=== PATIENT | female | born 1965 | race Caucasian/White ===

== ENCOUNTER → 2020-08-07 14:22 | Outpatient (BNVA) | payer MEDICARE, MEDICAID, SELFPAY | PROVIDERS: PCP Internal Medicine Sports Medicine; Visit Provider Urology | DX: Z76.89 Persons encountering health services in other specified circumstances (principal) | CPT/HCPCS: 51705; 99212 ==

== ENCOUNTER → 2020-09-06 14:00 | Outpatient (BNVA) | payer MEDICARE, MEDICAID, SELFPAY | PROVIDERS: PCP Internal Medicine Sports Medicine | DX: Z76.89 Persons encountering health services in other specified circumstances (principal) | CPT/HCPCS: 51705; 99212 ==

== ENCOUNTER → 2020-10-04 13:16 | Outpatient (BNVA) | payer MEDICARE, MEDICAID, SELFPAY | PROVIDERS: PCP Internal Medicine Sports Medicine; Visit Provider Urology | DX: N31.9 Neuromuscular dysfunction of bladder, unspecified (principal); Z46.6 Encounter for fitting and adjustment of urinary device; Z79.899 Other long term (current) drug therapy | CPT/HCPCS: 51701; 51705; 99212 ==

== ENCOUNTER → 2020-11-01 14:09 | Outpatient (BNVA) | payer MEDICARE, MEDICAID, SELFPAY | PROVIDERS: PCP Internal Medicine Sports Medicine; Visit Provider Urology | DX: N31.9 Neuromuscular dysfunction of bladder, unspecified (principal) | CPT/HCPCS: 51701; 51705; 99212 ==

== ENCOUNTER → 2020-11-29 14:16 | Outpatient (BNVA) | payer MEDICARE, MEDICAID, SELFPAY | PROVIDERS: PCP Internal Medicine Sports Medicine; Visit Provider Urology | DX: N31.9 Neuromuscular dysfunction of bladder, unspecified (principal); Z46.6 Encounter for fitting and adjustment of urinary device | CPT/HCPCS: 51705; 51710; 99212 ==

== ENCOUNTER → 2021-01-08 13:28 | Outpatient (BNVA) | payer MEDICARE, MEDICAID, SELFPAY | PROVIDERS: PCP Internal Medicine Sports Medicine; Visit Provider Urology | DX: N31.9 Neuromuscular dysfunction of bladder, unspecified (principal) | CPT/HCPCS: 51701; 51705; 99212 ==

== ENCOUNTER → 2021-02-05 13:58 | Outpatient (BNVA) | payer MEDICARE, MEDICAID, SELFPAY | PROVIDERS: PCP Internal Medicine Sports Medicine; Visit Provider Urology | DX: N31.9 Neuromuscular dysfunction of bladder, unspecified (principal) | CPT/HCPCS: 51705; 99212 ==

== ENCOUNTER → 2021-03-05 14:01 | Outpatient (BNVA) | payer MEDICARE, MEDICAID, SELFPAY | PROVIDERS: PCP Internal Medicine Sports Medicine; Visit Provider Urology | DX: Z43.5 Encounter for attention to cystostomy (principal); N31.9 Neuromuscular dysfunction of bladder, unspecified | CPT/HCPCS: 51705; 99212 ==

== ENCOUNTER → 2021-04-05 15:35 | Outpatient (BNVA) | payer MEDICARE, MEDICAID, SELFPAY | PROVIDERS: PCP Internal Medicine; Visit Provider Urology | DX: Z46.6 Encounter for fitting and adjustment of urinary device (principal); N31.9 Neuromuscular dysfunction of bladder, unspecified | CPT/HCPCS: 51705; 99212 ==

== ENCOUNTER → 2021-05-09 13:43 | Outpatient (BNVA) | payer MEDICARE, MEDICAID, SELFPAY | PROVIDERS: Visit Provider Urology | DX: Z46.6 Encounter for fitting and adjustment of urinary device (principal); N31.9 Neuromuscular dysfunction of bladder, unspecified | CPT/HCPCS: 51705; 99212 ==

== ENCOUNTER → 2021-06-12 14:50 | Outpatient (BNVA) | payer MEDICARE, MEDICAID, SELFPAY | PROVIDERS: Visit Provider Urology | DX: N31.9 Neuromuscular dysfunction of bladder, unspecified (principal) | CPT/HCPCS: 51705; 99212 ==

== ENCOUNTER → 2021-07-12 14:01 | Outpatient (BNVA) | payer MEDICARE, MEDICAID, SELFPAY | PROVIDERS: PCP Internal Medicine; Visit Provider Urology | DX: N31.9 Neuromuscular dysfunction of bladder, unspecified (principal) | CPT/HCPCS: 51705 ==

== ENCOUNTER → 2021-08-08 14:12 | Outpatient (BNVA) | payer MEDICARE, MEDICAID, SELFPAY | PROVIDERS: PCP Internal Medicine; Visit Provider Urology | DX: N31.9 Neuromuscular dysfunction of bladder, unspecified (principal) | CPT/HCPCS: 51705 ==

== ENCOUNTER → 2021-09-05 14:03 | Outpatient (BNVA) | payer MEDICARE, MEDICAID, SELFPAY | PROVIDERS: PCP Internal Medicine; Visit Provider Urology | DX: N31.9 Neuromuscular dysfunction of bladder, unspecified (principal) | CPT/HCPCS: 51705; 51710 ==

== ENCOUNTER → 2021-10-03 13:59 | Outpatient (BNVA) | payer MEDICARE, MEDICAID, SELFPAY | PROVIDERS: PCP Internal Medicine; Visit Provider Urology | DX: N31.9 Neuromuscular dysfunction of bladder, unspecified (principal) | CPT/HCPCS: 51705 ==

== ENCOUNTER → 2021-10-31 13:57 | Outpatient (BNVA) | payer MEDICARE, MEDICAID, SELFPAY | PROVIDERS: PCP Internal Medicine; Visit Provider Urology | DX: Z43.5 Encounter for attention to cystostomy (principal); N31.9 Neuromuscular dysfunction of bladder, unspecified | CPT/HCPCS: 51705 ==

== ENCOUNTER → 2021-11-28 14:01 | Outpatient (BNVA) | payer MEDICARE, MEDICAID, SELFPAY | PROVIDERS: PCP Internal Medicine; Visit Provider Urology | DX: Z43.5 Encounter for attention to cystostomy (principal); N31.9 Neuromuscular dysfunction of bladder, unspecified | CPT/HCPCS: 51705 ==

== ENCOUNTER → 2021-12-26 13:59 | Outpatient (BNVA) | payer MEDICARE, MEDICAID, SELFPAY | PROVIDERS: PCP Internal Medicine; Visit Provider Urology | DX: Z43.5 Encounter for attention to cystostomy (principal); N31.9 Neuromuscular dysfunction of bladder, unspecified | CPT/HCPCS: 51705 ==

== ENCOUNTER → 2022-01-23 13:59 | Outpatient (BNVA) | payer MEDICARE, MEDICAID, SELFPAY | PROVIDERS: PCP Internal Medicine; Visit Provider Urology | DX: Z43.5 Encounter for attention to cystostomy (principal); N31.9 Neuromuscular dysfunction of bladder, unspecified | CPT/HCPCS: 51705; 99212 ==

== ENCOUNTER → 2022-02-20 13:57 | Outpatient (BNVA) | payer MEDICARE, MEDICAID, SELFPAY | PROVIDERS: PCP Internal Medicine; Visit Provider Urology | DX: N31.9 Neuromuscular dysfunction of bladder, unspecified (principal) | CPT/HCPCS: 51705 ==

== ENCOUNTER → 2022-03-20 14:00 | Outpatient (BNVA) | payer MEDICARE, MEDICAID, SELFPAY | PROVIDERS: PCP Internal Medicine; Visit Provider Urology | DX: Z43.5 Encounter for attention to cystostomy (principal); N31.9 Neuromuscular dysfunction of bladder, unspecified | CPT/HCPCS: 51705 ==

== ENCOUNTER → 2022-04-17 12:56 | Outpatient (BNVA) | payer MEDICARE, MEDICAID, SELFPAY | PROVIDERS: PCP Internal Medicine; Visit Provider Urology | DX: N31.9 Neuromuscular dysfunction of bladder, unspecified (principal) | CPT/HCPCS: 51705 ==

== ENCOUNTER → 2022-05-15 13:27 | Outpatient (BNVA) | payer MEDICARE, MEDICAID, SELFPAY | PROVIDERS: PCP Internal Medicine; Visit Provider Urology | DX: N31.9 Neuromuscular dysfunction of bladder, unspecified (principal); Z46.6 Encounter for fitting and adjustment of urinary device | CPT/HCPCS: 51705 ==

== ENCOUNTER → 2022-06-12 13:31 | Outpatient (BNVA) | payer MEDICARE, MEDICAID, SELFPAY | PROVIDERS: PCP Internal Medicine; Visit Provider Urology | DX: N31.9 Neuromuscular dysfunction of bladder, unspecified (principal) | CPT/HCPCS: 51705 ==

== ENCOUNTER → 2022-07-10 15:03 | Outpatient (BNVA) | payer MEDICARE, MEDICAID, SELFPAY | PROVIDERS: PCP Internal Medicine; Visit Provider Urology | DX: N31.9 Neuromuscular dysfunction of bladder, unspecified (principal) | CPT/HCPCS: 51705; 99212 ==

== ENCOUNTER → 2022-08-06 13:31 | Outpatient (BNVA) | payer MEDICARE, MEDICAID, SELFPAY | PROVIDERS: PCP Internal Medicine; Visit Provider Urology | DX: N31.9 Neuromuscular dysfunction of bladder, unspecified (principal) | CPT/HCPCS: 51705 ==

== ENCOUNTER → 2022-09-04 13:30 | Outpatient (BNVA) | payer MEDICARE, MEDICAID, SELFPAY | PROVIDERS: PCP Internal Medicine; Visit Provider Urology | DX: N31.9 Neuromuscular dysfunction of bladder, unspecified (principal) | CPT/HCPCS: 51705 ==

== ENCOUNTER → 2022-10-02 13:28 | Outpatient (BNVA) | payer MEDICARE, MEDICAID, SELFPAY | PROVIDERS: PCP Internal Medicine; Visit Provider Urology | DX: N31.9 Neuromuscular dysfunction of bladder, unspecified (principal) | CPT/HCPCS: 51705 ==

== ENCOUNTER → 2022-10-30 13:31 | Outpatient (BNVA) | payer MEDICARE, MEDICAID, SELFPAY | PROVIDERS: PCP Internal Medicine; Visit Provider Urology | DX: N31.9 Neuromuscular dysfunction of bladder, unspecified (principal) | CPT/HCPCS: 51705 ==

== ENCOUNTER → 2022-11-27 13:34 | Outpatient (BNVA) | payer MEDICARE, MEDICAID, SELFPAY | PROVIDERS: PCP Internal Medicine; Visit Provider Urology | DX: N31.9 Neuromuscular dysfunction of bladder, unspecified (principal) | CPT/HCPCS: 51705 ==

== ENCOUNTER → 2022-12-31 13:32 | Outpatient (BNVA) | payer MEDICARE, MEDICAID, SELFPAY | PROVIDERS: PCP Internal Medicine; Visit Provider Urology | DX: N31.9 Neuromuscular dysfunction of bladder, unspecified (principal) | CPT/HCPCS: 51705 ==

== ENCOUNTER → 2023-01-29 13:42 | Outpatient (BNVA) | payer MEDICARE, MEDICAID, SELFPAY | PROVIDERS: PCP Student in an Organized Health Care Education/Training Program; Visit Provider Nurse Practitioner Family | DX: N31.9 Neuromuscular dysfunction of bladder, unspecified (principal) | CPT/HCPCS: 51705; 99212 ==

== ENCOUNTER → 2023-02-25 13:28 | Outpatient (BNVA) | payer MEDICARE, MEDICAID, SELFPAY | PROVIDERS: PCP Student in an Organized Health Care Education/Training Program; Visit Provider Nurse Practitioner Family | DX: Z43.5 Encounter for attention to cystostomy (principal); N31.9 Neuromuscular dysfunction of bladder, unspecified | CPT/HCPCS: 51705 ==

== ENCOUNTER → 2023-03-26 13:55 | Outpatient (BNVA) | payer MEDICARE, MEDICAID, SELFPAY | PROVIDERS: PCP Student in an Organized Health Care Education/Training Program; Visit Provider Urology | DX: N31.9 Neuromuscular dysfunction of bladder, unspecified (principal) | CPT/HCPCS: 51705 ==

== ENCOUNTER → 2023-04-30 13:51 | Outpatient (BNVA) | payer MEDICARE, MEDICAID, SELFPAY | PROVIDERS: PCP Student in an Organized Health Care Education/Training Program; Visit Provider Nurse Practitioner Family | DX: N31.9 Neuromuscular dysfunction of bladder, unspecified (principal) | CPT/HCPCS: 51705 ==

== ENCOUNTER → 2023-05-28 13:57 | Outpatient (BNVA) | payer MEDICARE, MEDICAID, SELFPAY | PROVIDERS: PCP Student in an Organized Health Care Education/Training Program; Visit Provider Urology | DX: N31.9 Neuromuscular dysfunction of bladder, unspecified (principal) | CPT/HCPCS: 51705 ==

== ENCOUNTER 2023-07-01 13:25 | Outpatient (AMB) | payer MEDICARE, MEDICAID, SELFPAY ==
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
== END 2023-07-01 14:10 | disposition home or self-care (01) ==
PROVIDERS: PCP Student in an Organized Health Care Education/Training Program; Visit Provider Urology
DX: N31.9 Neuromuscular dysfunction of bladder, unspecified (principal); N20.0 Calculus of kidney
CPT/HCPCS: 99214

== ENCOUNTER → 2023-07-01 13:25 | Outpatient (BNVA) | payer MEDICARE, MEDICAID, SELFPAY | PROVIDERS: PCP Student in an Organized Health Care Education/Training Program; Visit Provider Urology | DX: N31.9 Neuromuscular dysfunction of bladder, unspecified (principal); N20.0 Calculus of kidney | CPT/HCPCS: 99212 ==

== ENCOUNTER 2023-07-02 14:03 | Day surgery (SDC) | payer MEDICARE, MEDICAID, SELFPAY ==
--- NOTE | ~2023-07-02 | FL_ITS ---
EXAMINATION: XR FLUOROSCOPY WITH IMAGES CLINICAL INFORMATION: Right ureteral stent removal, possible retrograde. COMPARISON: None available. TECHNIQUE: Fluoroscopy Supervised By: Dr. Alfredo Hastings. Fluoroscopy Time: 14.4 seconds. Cumulative Dose: 3.41 mGy. DAP: None. Images: 1. FINDINGS: Initial image demonstrates the proximal end of a right internal ureteral stent. Later images demonstrate tube and wire in the pelvis, question suprapubic tube with wire in the bladder. FL/FL guidance in OR IMPRESSION: Fluoroscopy guidance for urology procedure.
--- OUTSIDE RECORDS SUMMARY | 2023-07-02 14:07 | XMS_ITS | Continuity of Care Document ---
Author Name Unknown Organization [facility] Address [address] [place] [address]- Care Team Providers Care Hyperion Essbase Developer Name Role Phone Tiffanie Casillas DO Primary Care Physician Encounter [facility] [id number] Date(s): 05/07/23 - 05/14/23 [facility] [address] [place] [address] [address] [place] [address]- Attending Physician: Juan Jo MD Referring Physician: Tiffanie Casillas DO Allergies, Adverse Reactions, Alerts Substance Reaction Severity Status ciprofloxacin rash Active nortriptyline Active oxybutynin dizziness Active ciclopirox topical Active tizanidine dizzy, hallucinations Active Compazine vomiting, dizziness Active Depakote Active Viracept Active morphine not allergic Morphine allergy Active sucralfate headache Active Detrol dizzy Active Pepcid dizzy Active Tegretol tremors, hallucinations Acti ve terconazole topical Active mirtazapine Active Serzone Active phenothiazines Active Celexa dizziness Nortriptyline allergy Active Thorazine Active Dilaudid Active OxyContin Active Latex rash Active Spectazole 1% topical cream Active traZODONE Active hydroxyzine Active Duragesic Active Ziagen Active buspirone Resolved Medications acetaminophen 325 mg oral tablet 975 mg, By Mouth, Every 6 hours, PRN, or fever greater than 101.5, Refills 0, Maintenance, Pain , Moderate, 01/01/21 11:21:00 EDT, Partial fill upon patient request if the prescription is for a schedule II opioid drug. Start Date: 01/01/21 Status: Ordered Ambien Tablet 1 tablet, By Mouth, Daily at bedtime, 0 Refills, Maintenance, 01/25/13 14:11:16 EDT Start Date: 01/25/13 Status: Ordered Baclofen she has a pump that provides this drug. the pump was taken out because of infection. they are weening her off. according to her & , 0 Refills, 06/22/08 13:27:53 EDT Start Date: 06/22/08 Status: Ordered busPIRone 10 mg oral tablet 20 mg, 2, tablet, By Mouth, 2 times a day, Maintenance, 12/26/20 14:18:00 EDT Start Date: 12/26/20 Status: Ordered FLUoxetine 40 mg oral capsule 2 capsule = 80 mg, By Mouth, Daily in AM, 0 Refills, Maintenance, 12/26/20 14:19:00 EDT Start Date: 12/26/20 Status: Ordered Fosamax Plus D 70 mg-5600 intl units oral tablet 1, tablet, By Mouth, Every week, 0, 0, 06/22/08 13:22:38, Print CIRILO Number, [id number], Constant Indicator Start Date: 06/22/08 Status: Ordered lorazepam 1 mg oral tablet 1 mg, 1, tablet, By Mouth, 2 times a day, PRN as needed for anxiety, & 2 tablets at bedtime, 0 Refills, Maintenance Start Date: 06/22/08 Status: Ordered multivitamin Therapeutic Multiple Vitamins oral tablet 1, tablet, By Mouth, Daily, 0 Refills Start Date: 06/22/08 Status: Ordered nitrofurantoin macrocrystals 100 mg oral capsule 1 capsule = 100 mg, By Mouth, Daily at bedtime, 0 Refills, Maintenance, 12/26/20 14:25:00 EDT Start Date: 12/26/20 Status: Ordered SEROquel XR 300 mg oral tablet, extended release 1 tablet = 300 mg, By Mouth, Daily in PM, takes at 8 pm with 400mg dose for total 700mg dose, 0 Refills, Maintenance, 12/18/20 16:42:00 EDT, ER Tablet Start Date: 12/18/20 Status: Ordered SEROquel XR 400 mg oral tablet, extended release 400 mg, 1, tablet, By Mouth, Daily before dinner, takes with 300mg for total dose of 700 mg, Refills 0, Maintenance, 12/18/20 16:42:00 EDT Start Date: 12/18/20 Status: Ordered solifenacin 10 mg oral tablet 1 tablet = 10 mg, By Mouth, 2 times a day, 0 Refills, Maintenance, 12/18/20 16:38:00 EDT, Tablet Start Date: 12/18/20 Status: Ordered Triumeq 1 tablet, By Mouth, Daily, 0 Refills, Maintenance, 12/05/20 11:54:00 EST Start Date: 12/05/20 Status: Ordered Valtrex Tablet 1, tablet, By Mouth, Daily at bedtime, takes at 11pm, Refills 0, Tot. Refills 0, 06/22/08 13:29:55 EDT Start Date: 06/22/08 Status: Ordered Vital Signs Most recent to oldest [Reference Range]: 1 Height 175.2 cm (05/07/23 2:34 PM) Oxygen Saturation [94-100 %] 98 % (05/07/23 2:34 PM) Pulse Rate [55-90 bpm] 78 bpm (05/07/23 2:34 PM) Blood Pressure [90-138/55-84 mm Hg] 126/ 67mm Hg (05/07/23 2:34 PM) Mode of Delivery (Oxygen) Room air (05/07/23 2:34 PM) Blood pressure sites Arm, left (05/07/23 2:34 PM) Patient Care team information Care Team Personnel Name: Tiffanie Casillas DO Position: Reference Physician Member Role: PCP Address: Address: [address] [place] [address]- Name: Alicia Mckeon RN Position: [facility] AM[facility] Nurse Member Role: Primary Care Nurse Name: Rivka Berry RN Position: S RN Member Role: Primary Care Nurse Name: Meir Kumar RN Position: S RN Member Role: Primary Care Nurse Name: Almaz Perkins RN Position: S RN Member Role: Primary Care Nurse Name: Venus Mayfield RN Position: S RN Member Role: Primary Care Nurse Care Team Related Persons Name: JUDY ENRIQUEZ Address: [address] [address] Name: ANDREW BURGER Address: [address] Name: AMEE BURGER Address: [address] [address]
--- OUTSIDE RECORDS SUMMARY | 2023-07-02 14:07 | XMS_ITS | Continuity of Care Document ---
Author Name Unknown Organization [facility] ter Address [address] [place] [id number] Care Team Providers Care Nursing Techn Name Role Phone Tiffanie Casillas DO Primary Care Physician [phone] Encounter [facility] Date(s): 06/26/23 - 06/29/[address] [id number] Discharge Disposition: A-D/C Home Attending Physician: Corey Canchola MD Admitting Physician: Sadie Mejia MD Referring Physician: Not on Staff, Referring MD Allergies, Adverse Reactions, Alerts Substance Reaction Severity Status ciprofloxacin rash Active nortriptyline Active oxybutynin dizziness Active sucralfate headache Active terconazole topical Active ciclopirox topical Active mirtazapine Active tizanidine dizzy, hallucinations Active phenothiazines Active Detrol dizzy Active Celexa dizziness Nortriptyline allergy Active Serzone Active Thorazine Active Pepcid dizzy Active Tegretol tremors, hallucinations Acti ve Dilaudid Active OxyContin Active Compazine vomiting, dizziness Active Depakote Active Viracept Active Duragesic Active Ziagen Active Latex rash Active Spectazole 1% topical cream Active buspirone Resolved hydroxyzine Active traZODONE Active Immunizations Given and Recorded Vaccine Date Status Refusal Reason influenza virus vaccine, inactivated 09/02/22 Jeromy rded influenza virus vaccine, inactivated 07/18/21 Jeromy rded influenza virus vaccine, inactivated 08/22/20 Jeromy rded influenza virus vaccine, inactivated 07/21/19 Jeromy rded influenza virus vaccine, inactivated 07/22/16 Jeromy rded tetanus/diphtheria/pertussis, acel(Tdap) 01/22/22 Recorded SARS-CoV-2 (COVID-19) mRNA BNT-162b2 vac 10/16/21 Recorded SARS-CoV-2 (COVID-19) Ad26 vaccine 01/11/21 Record ed tetanus-diphtheria toxoids (Td) 05/12/16 Recorded pneumococcal 23-valent vaccine 07/31/05 Recorded Medications Ambien 10 mg oral tablet 1 tablet = 10 mg, By Mouth, Daily at bedtime, PRN as needed for insomnia, 0 Refills, Maintenance, 06/26/23 17:53:00 EDT, Partial fill upon patient request if the prescription is for a schedule II opioid drug. Start Date: 06/26/23 Status: Ordered Ativan 1 mg oral tablet 1 tablet = 1 mg, By Mouth, 2 times a day, PRN as needed for anxiety, 0 Refills, Maintenance, 06/26/23 17:54:00 EDT, Partial fill upon patient request if the prescription is for a schedule II opioid drug. Start Date: 06/26/23 Status: Ordered Ativan 1 mg oral tablet 2 tablet = 2 mg, By Mouth, Daily at bedtime, PRN as needed for anxiety, 0 Refills, Maintenance, 06/26/23 17:54:00 EDT, Partial fill upon patient request if the prescription is for a schedule II opioid drug. Start Date: 06/26/23 Status: Ordered busPIRone 10 mg oral tablet 20 mg, 2, tablet, By Mouth, 2 times a day, Maintenance, 12/26/20 14:18:00 EDT Start Date: 12/26/20 Status: Ordered FLUoxetine 40 mg oral capsule 2 capsule = 80 mg, By Mouth, Daily in AM, 0 Refills, Maintenance, 12/26/20 14:19:00 EDT Start Date: 12/26/20 Status: Ordered Fosamax 70 mg oral tablet 1 tablet = 70 mg, By Mouth, Every 7 days, Thursday, 0 Refills, Maintenance, 06/26/23 17:55:00 EDT, Partial fill upon patient request if the prescription is for a schedule II opioid drug. Start Date: 06/26/23 Status: Ordered nitrofurantoin macrocrystals 100 mg oral capsule 1 capsule = 100 mg, By Mouth, Daily, 0 Refills, Maintenance, 12/26/20 14:25:00 EDT Start Date: 12/26/20 Status: Ordered SEROquel 300 mg oral tablet 1 tablet = 300 mg, By Mouth, Daily at bedtime, 0 Refills, Maintenance, 06/26/23 17:55:00 EDT, Partial fill upon patient request if the prescription is for a schedule II opioid drug. Start Date: 06/26/23 Status: Ordered SEROquel 400 mg oral tablet 1 tablet = 400 mg, By Mouth, Daily at bedtime, 0 Refills, Maintenance, 06/26/23 17:55:00 EDT, Partial fill upon patient request if the prescription is for a schedule II opioid drug. Start Date: 06/26/23 Status: Ordered solifenacin 10 mg oral tablet 1 tablet = 10 mg, By Mouth, 2 times a day, 0 Refills, Maintenance, 12/18/20 16:38:00 EDT, Tablet Start Date: 12/18/20 Status: Ordered Triumeq oral tablet 1 tablet, By Mouth, Daily, 0 Refills, Maintenance, 06/26/23 17:52:00 EDT, Partial fill upon patientrequest if the prescription is for a schedule II opioid drug. Start Date: 06/26/23 Status: Ordered Valtrex 500 mg oral tablet 500 mg, 1, tablet, By Mouth, Daily, Refills 0, Maintenance, 06/19/23 15:12:00 EDT, Partial fill upon patient request if the prescription is for a schedule II opioid drug. Start Date: 06/19/23 Status: Ordered Problem List Condition Confirmation Course Effective Dates Status Health St atus Informant Presence of intrathecal baclofen pump Confirmed Active Results Radiology Reports * Exam Date Time Procedure Performing Provider Status 06/27/23 9:09 AM C-Arm < 1 Hour Raymond , Keira; Auth (V erified) Notes: (C-Arm < 1 Hour) Reason For Exam: Right Cysto retrograde with stent placement RESULT: C-Arm < 1 Hour Urethrocystography Retrograde, C-Arm < 1 Hour INDICATION: CT 06/24/2023 right UVJ stone. Right cysto retrograde with stent placement COMPARISONS: None TECHNIQUE: Fluoroscopy support was provided. There was no radiologist in attendance. FLUOROSCOPY TIME: 10.8 seconds EXPOSURE: 0.3619 Gycm2 (Dose Area Product) TECHNOLOGIST TIME: 45 minutes FINDINGS: Several views show retrograde catheterization catheter placement with pigtail loop formed in the right upper pole. IMPRESSION: See above. WSN: [id number] Ordering Physician: Bryan Desir Dictated By: Ta Xiong MD Dictated Date/Time: 06/27/23 10:36 a Reviewed By: Ta Xiong MD Signed By: Ta Xiong MD Signed Date/Time: 06/27/23 10:36 am Transcribed By: JIMMY Transcribed Date/Time: 06/27/23 10:35 am * Exam Date Time Procedure Performing Provider Status 06/27/23 9:09 AM Urethrocystography Retrograde Raymond , Keira; Auth (Verified) Notes: (Urethrocystography Retrograde) Reason For Exam: Right cysto retrograde with stent placement RESULT: Urethrocystography Retrograde Urethrocystography Retrograde, C-Arm < 1 Hour INDICATION: CT 06/24/2023 right UVJ stone. Right cysto retrograde with stent placement COMPARISONS: None TECHNIQUE: Fluoroscopy support was provided. There was no radiologist in attendance. FLUOROSCOPY TIME: 10.8 seconds EXPOSURE: 0.3619 Gycm2 (Dose Area Product) TECHNOLOGIST TIME: 45 minutes FINDINGS: Several views show retrograde catheterization catheter placement with pigtail loop formed in the right upper pole. IMPRESSION: See above. WSN: [id number] Ordering Physician: Bryan Desir Dictated By: Ta Xiong MD Dictated Date/Time: 06/27/23 10:36 a Reviewed By: Ta Xiong MD Signed By: Ta Xiong MD Signed Date/Time: 06/27/23 10:36 am Transcribed By: JIMMY Transcribed Date/Time: 06/27/23 10:35 am Vital Signs Most recent to oldest [Reference Range]: 1 2 3 Oxygen Saturation [94-100 %] 96 % (06/29/23 8:00 AM) 99 % (06/29/23 12:00 AM) 97 % (06/28/23 8:00 PM) Pulse Rate [55-90 bpm] 91 bpm *H* (06/29/23 8:00 AM) 102 bpm *H* (06/29/23 12:00 AM) 91 bpm *H* (06/28/23 8:00 PM) Blood Pressure [90-138/55-84 mm Hg] 124/60mm Hg (06/29/23 8:00 AM) 105/50mm Hg (06/29/23 12:00 AM) 132/71mm Hg (06/28/23 8:00 PM) Respiratory Rate [16-30 br/min] 17 br/min (06/29/23 8:00 AM) 17 br/min (06/29/23 12:00 AM) 17 br/min (06/28/23 8:00 PM) Temperature [96.8-100.4 DegF] 98.7 DegF (06/29/23 8:00 AM) 97.3 DegF (06/29/23 12:00 AM) 98.1 DegF (06/28/23 8:00 PM) Liters per Minute 6 L/min (06/27/23 8:45 AM) Mode of Delivery (Oxygen) Room air (06/29/23 8:00 AM) Room air (06/29/23 12:00 AM) Room air (06/28/23 8:00 PM) Blood pressure sites Arm, left (06/29/23 8:00 AM) Arm, left (06/29/23 12:00 AM) Arm, left (06/28/23 8:00 PM) Temperature Route Oral (06/29/23 8:00 AM) Oral (06/29/23 12:00 AM) Oral (06/28/23 8:00 PM) Social History Social History Type Response Smoking Status Never (less than 100 in lifetime) entered on: 06/19/23 Sex History and physical note * Whit SANTOS, [facility]: PERFORM Event Display: History and Physical Hospital Authored Date: Patient: ??DARLING ENRIQUEZ ? Age:??57 Years?Sex:??Female?:??1965?? History of Present Illness ?? 57-year-old female with a history of TBI, HIV, quadriplegia with colostomy, indwelling Kaur catheter admitted to the [facility] with??fever, cough,??shortness of breath??was admitted??for sepsissecondary to suspected pneumonia and UTI??Urine culture growing Pseudomonas, ID consulted, recommends cefepime and completed doxycycline for suspected pneumonia.??patient??need suprapubic catheter replaced which was unsuccessful, kaur placed , and further evaluation iwth ct abdomen was obtained ,??CT abdomen pelvis showed obstructing 6 mm + right UVJ junction with moderate hydroureteronephrosis urology consult, plan for cystoscopy today given her underlying comorbidities deemed needing higher level of care, hence transferred to [facility]. ?? On arrival here, patient reports improvement in her cough and shortness of breath??after treatment with??antibiotics and steroids.?? Patient??denies having any chest pain, abdomen pain,??bowel habits, no diarrhea, no urinary symptoms. Objective ? Vital Signs?? Temperature: 97.6 DegF (06/27/23 00:43:00) Temperature Route: Oral (06/27/23 00:43:00) Pulse Rate: 79 bpm (06/27/23 00:43:00) Respiratory Rate: 18 br/min (06/27/23 00:43:00) Systolic Blood Pressure:??152 mm Hg??High (06/27/23 00:43:00) Diastolic Blood Pressure:??89 mm Hg??High (06/27/23 00:43:00) Blood pressure sites: Arm, right (06/27/23 00:43:00) Mean Arterial Pressure: 110 mm Hg (06/27/23 00:43:00) Pulse Pressure: 63 mm Hg (06/27/23 00:43:00) Oxygen Saturation: 97 % (06/27/23 00:43:00) Liters per Minute: 1 L/min (06/26/23 07:27:00) Mode of Delivery (Oxygen): Room air (06/27/23 00:43:00) Early Warning Score: 2 (06/27/23 00:44:59) ? Physical Exam Constitutional: Alert, in no acute distress. Head EENT: Extraocular muscle movement intact.??Moist mucous membranes.?? Neck: Supple. No JVD. Respiratory: Clear to auscultation. No wheezing or crackles. No use of accessory muscles. Cardiovascular: S1S2 regular. No murmurs, rubs or gallops. Gastrointestinal: Abdomen soft, non-tender, non-distended. Normal bowel sounds.colostomy in place purewick around spc site Genitourinary: No CVA tenderness. Extremities: No lower extremity pitting??edema. No cyanosis or clubbing. Neurologic: AAOx3, Speech normal. quadriplegic Skin: No rash. Psychiatric: Normal mood and affect Assessment/Plan Diagnoses JACI (acute kidney injury) ??(N17.9) Anxiety ??(F41.9) HIV disease ??(B20) Nephrolithiasis ??(N20.0) Pneumonia ??(J18.9) Quadriplegia ??(G82.50) S/P colostomy ??(Z93.3) UTI (urinary tract infection) ??(N39.0) ?? Assessment:??57-year-old female with a history of TBI, HIV, quadriplegia with colostomy, indwellingFoley catheter admitted to the [facility] with fever, cough, shortness of breath was admitted for sepsis secondary to suspected pneumonia and UTI Urine culture growing Pseudomonas, ID consulted, recommends cefepime and completed doxycycline for suspected pneumonia, patient need suprapubic catheter replaced which was unsuccessful, kaur placed , and further evaluation??with ??ct abdomen was obtained , CT abdomen pelvis showed obstructing 6 mm + right UVJ junction with moderate hydroureteronephrosis urology consult, plan for cystoscopy today given her underlying comorbidities deemed needinghigher level of care, hence transferred to [facility] ?? Nephrolithiasis ??(N20.0) UTI (urinary tract infection) (N39.0):??Patient??has chronic suprapubic catheter,??presented with fever??and sepsis at [facility],??suprapubic catheter replacement was unsuccessful,??per request placed,??CT abdomen pelvis ordered which showed -abdomen pelvis showed obstructing 6 mm + right UVJ junction, urology consult, plan for cystoscopy today given her underlying comorbidities deemed needing higher level of care, hence transferred to [facility]. -continue cefepime started on 06/22 -npo after midnight -urology consult in am -will need outpatient follow up for suprapubic catheter ( follows urologist [facility]) ?? JACI (acute kidney injury) (N17.9):??baseline creatinine 0.6, on admission to [place] was 1.6, today is 1,improving could be in the setting of hydronephrosis??sepsis, uti and monitor renal function -urology consult as above ?? Pneumonia (J18.9):??s/p doxycycline,??3days of steroids, improvement in her symptoms ?? Anxiety (F41.9):??Ativan 2 mg 8 PM??and 1 mg at 11 PM an additional 1 mg during the day as as needed, ??Seroquel 700 mg, continue continue bupsar and fluoxetine ?? HIV disease (B20):??Continue home medication, triumeq ?? Quadriplegia (G82.50):??Her baclofen pump ?? S/P colostomy (Z93.3):??noted ?? VTE Prophylaxis:??SCD ?VTE Prophylaxis Assessment:??Risk Level documented as Low Risk ?? Code Status:??full ?Order Code Status:??Code Status Ordered ?? Ongoing Medical Necessity:??hydronephrosis ?? Discharge Planning:??pending clinical course ?? This note was created using [employer] speech recognition software, there may be unwanted word substitution, typographical errors or grammatical error, an attempt at proofreading has been made to minimize errors. please call if there are any questions regarding plan of care. ?? date of service:??06/26/23 ? Histories Allergies Allergies ?(Active and Proposed Allergies Only) Latex? (Severity: Unknown severity, Onset: Unknown) ?Reactions: rash nortriptyline? (Severity: Unknown severity, Onset: Unknown) traZODONE? (Severity: Unknown severity, Onset: Unknown) Depakote? (Severity: Unknown severity, Onset: Unknown) tizanidine? (Severity: Unknown severity, Onset: Unknown) ?Reactions: dizzy, hallucinations Tegretol? (Severity: Unknown severity, Onset: Unknown) ?Reactions: tremors, hallucinations sucralfate? (Severity: Unknown severity, Onset: Unknown) ?Reactions: headache Pepcid? (Severity: Unknown severity, Onset: Unknown) ?Reactions: dizzy ciprofloxacin? (Severity: Unknown severity, Onset: Unknown) ?Reactions: rash oxybutynin? (Severity: Unknown severity, Onset: Unknown) ?Reactions: dizziness Detrol? (Severity: Unknown severity, Onset: Unknown) ?Reactions: dizzy Compazine? (Severity: Unknown severity, Onset: Unknown) ?Reactions: vomiting, dizziness Serzone? (Severity: Unknown severity, Onset: Unknown) mirtazapine? (Severity: Unknown severity, Onset: Unknown) hydroxyzine? (Severity: Unknown severity, Onset: Unknown) Celexa? (Severity: Unknown severity, Onset: Unknown) ?Reactions: Nortriptyline allergy, dizziness phenothiazines? (Severity: Unknown severity, Onset: Unknown) Viracept? (Severity: Unknown severity, Onset: Unknown) Ziagen? (Severity: Unknown severity, Onset: Unknown) Dilaudid? (Severity: Unknown severity, Onset: Unknown) Duragesic? (Severity: Unknown severity, Onset: Unknown) OxyContin? (Severity: Unknown severity, Onset: Unknown) Thorazine? (Severity: Unknown severity, Onset: Unknown) ciclopirox topical? (Severity: Unknown severity, Onset: Unknown) terconazole topical? (Severity: Unknown severity, Onset: Unknown) Spectazole 1% topical cream? (Severity: Unknown severity, Onset: Unknown) ? Past Medical History/Problem List Active Problems??(1) Presence of intrathecal baclofen pump ? Past Surgical History No surgery history documented. ? Social History Alcohol Details:??Use: Never. Substance Abuse Details:??Use: Never. Tobacco Details:??Use: Never (less than 100 in lifetime). ? Family History No positive family history reported. ? Medications Home Medications abacavir/dolutegravir/lamiVUDine (Triumeq oral tablet)?1?tab(s)?By Mouth?Daily Alendronate (Fosamax 70 mg oral tablet)?1?tab(s)?70?Milligram?By Mouth?Every 7 days?Thursday BusPIRone (busPIRone 10 mg oral tablet)?20?Milligram?2?tablet?By Mouth?2 times a day Cefepime (cefepime 2 g intravenous injection)?2,000?Milligram?IVPB?Every 12 hours?for 1?Days Fluoxetine (FLUoxetine 40 mg oral capsule)?2?capsule?80?Milligram?By Mouth?Daily in AM Lorazepam (Ativan 1 mg oral tablet)?1?tab(s)?1?Milligram?By Mouth?2 times a day?as needed?as needed for anxiety Lorazepam (Ativan 1 mg oral tablet)?2?tab(s)?2?Milligram?By Mouth?Daily at bedtime?as needed?as needed for anxiety Nitrofurantoin (nitrofurantoin macrocrystals 100 mg oral capsule)?1?capsule?100?Milligram?By Mouth?Daily Quetiapine (SEROquel 300 mg oral tablet)?1?tab(s)?300?Milligram?By Mouth?Daily atbedtime Quetiapine (SEROquel 400 mg oral tablet)?1?tab(s)?400?Milligram?By Mouth?Daily atbedtime Solifenacin (solifenacin 10 mg oral tablet)?1?tab(s)?10?Milligram?By Mouth?2 times a day ValACYclovir (Valtrex 500 mg oral tablet)?500?Milligram?1?tablet?By Mouth?Daily Zolpidem (Ambien 10 mg oral tablet)?1?tab(s)?10?Milligram?By Mouth?Daily at bedtime?as needed?as needed for insomnia ? Results Recent Labs BLOOD COUNT & DIFF WBC 11.7 k/mm3 (High)?? 06/26/2023 05:22 RBC 3.14 m/mm3 (Low)?? 06/26/2023 05:22 Hgb 11.4 Gm/dL (Low)?? 06/26/2023 05:22 Hct 30.8 % (Low)?? 06/26/2023 05:22 MCV 98.1 femtoliters ()?? 06/26/2023 05:22 MCH 36.3 pg (High)?? 06/26/2023 05:22 MCHC 37.0 g/dL ()?? 06/26/2023 05:22 Platelet Count 355 k/mm3 ()?? 06/26/2023 05:22 RDW-SD 54.2 femtoliters (High)?? 06/26/2023 05:22 MPV 9.9 femtoliters ()?? 06/26/2023 05:22 Nucleated RBC (Automated) 0.0 #/100 WBC'S ()?? 06/26/2023 05:22 Abs. NRBC 0.0 k/mm3 ()?? 06/26/2023 05:22 ?? CHEM GENERAL Sodium 144 mmol/L ()?? 06/26/2023 05:22 Potassium 3.4 mmol/L (Low)?? 06/26/2023 05:22 Chloride 113 mmol/L (High)?? 06/26/2023 05:22 Bicarbonate Level 17 mmol/L (Low)?? 06/26/2023 05:22 Anion Gap 14 ()?? 06/26/2023 05:22 BUN 33 mg/dL (High)?? 06/26/2023 05:22 Creatinine-Blood 1.0 mg/dL ()?? 06/26/2023 05:22 Estimated GFR Creatinine 65 ML/MIN/1.73 M2 ()?? 06/26/2023 05:22 ?? URINE OTHER Est Creatinine Clearance 63.08 mL/min ()?? 06/26/2023 08:06 ?? VIROLOGY COVID-19 PCR Specimen Source NASAL ()?? 06/26/2023 16:00 COVID-19 PCR Result NEGATIVE ()?? 06/26/2023 16:00 ? EKG study * Event Display: EKG Authored Date: * Event Display: ECG 12-Lead Authored Date: Please click on pdf link to open report * Event Display: ECG 12-Lead Authored Date: Ventricular Rate: 78 BPM Atrial Rate: 78 BPM P-R Interval: 172 ms QRS Duration: 86 ms Q-T Interval: 426 ms QTC Calculation(Bazett): 485 ms P [place]: -4 degrees R [place]: 16 degrees T [place]: -15 degrees Normal sinus rhythm Prolonged QT Abnormal ECG When compared with ECG of 26-JUN-2023 19:38, MANUAL COMPARISON REQUIRED, DATA IS UNCONFIRMED Confirmed by YEISON MONTGOMERY MD ([id number]) on 06/27/2023 10:22:37 AM [place]: YEISON MONTGOMERY MD * Event Display: ECG 12-Lead Authored Date: Please click on pdf link to open report * Event Display: ECG 12-Lead Authored Date: Ventricular Rate: 81 BPM Atrial Rate: 81 BPM P-R Interval: 152 ms QRS Duration: 100 ms Q-T Interval: 436 ms QTC Calculation(Bazett): 506 ms P [place]: 74 degrees R [place]: 39 degrees T [place]: 63 degrees Critical Test Result: Long QTc Normal sinus rhythm Normal ECG When compared with ECG of 19-JUN-2023 13:32, Sinus rhythm has replaced Junctional rhythm T wave inversion no longer evident in Anterior leads QT has shortened Confirmed by VALENTINA SANTOS YEISON ([id number]) on 06/27/2023 5:08:09 PM [place]: [facility] * Alexa Mark RN: PERFORM, SIGN, VERIFY Event Display: Progress Note Hospital Authored Date: [id number] Patient: DARLING ENRIQUEZ Age: 57 years Sex: Female : 1965 Associated Diagnoses: None Author: Alexa Mark RN Findings Evaluation A+Ox3. VSS. Pt denies SOB, chest pain, N/V/D. Respirations even and steady. IPOC rounds completed on pt today. T&R. Incontinent care given. Colostomy bag intact. Pt being discharged home. DIscharge teaching done with pt and at bedside. IV removed, catheter tip intact and dry dressing applied. Pt left unit via own wheelchair. . Discharge Information Case Management Discharge Plan : Case Management Discharge Plan Data 06/26/2023 15:11 EDT Discharge Level of Care at Discharge Short-term Acute Inpatient * Char CORRAL, Moy Ceballos: PERFORM Event Display: Progress [facility] Authored Date: Patient: ??DARLING ENRIQUEZ ? Age:??57 Years?Sex:??Female?:??1965?? Subjective LOS: 3 PCP: Tiffanie Caisllas DO Consulting Physician: Jesika SANTOS, Corey Attending Physician: Ta Blake MD Reason For Consult: Urosepsis/Obstructive Uropathy ?? 57-year-old??quadriplegic female now POD??2??cystoscopy right stent,??seen and examined at bedside. No overnight events per nursing.?? Vital signs reviewed??and are stable.?? No recent labs. Kaur catheter draining clear yellow urine.?? No new complaints. ??Patient will??follow-up with their home urologist Dr. Martinez ([place])??for??SP tube placement, and ureteroscopy with stone removal. Review of Systems *Quadriplegic, unreliable. ??Though denying any??new complaints. Past Medical History Active Problems??(1) Presence of intrathecal baclofen pump ? Past Surgical History No surgery history documented. ? Social History Alcohol Details:??Use: Never. Substance Abuse Details:??Use: Never. Tobacco Details:??Use: Never (less than 100 in lifetime). ? Objective ? Vital Signs?? Temperature: 98.7 DegF (06/29/23 08:00:00) Temperature Route: Oral (06/29/23 08:00:00) Pulse Rate:??91 bpm??High (06/29/23 08:00:00) Respiratory Rate: 17 br/min (06/29/23 08:00:00) Systolic Blood Pressure: 124 mm Hg (06/29/23 08:00:00) Diastolic Blood Pressure: 60 mm Hg (06/29/23 08:00:00) Blood pressure sites: Arm, left (06/29/23 08:00:00) Mean Arterial Pressure: 95 mm Hg (06/28/23 15:07:00) Pulse Pressure: 64 mm Hg (06/29/23 08:00:00) Oxygen Saturation: 96 % (06/29/23 08:00:00) Mode of Delivery (Oxygen): Room air (06/29/23 08:00:00) Early Warning Score: 0 (06/29/23 08:26:57) ? Pain Scores?? No qualifying data available. ? Intake/Output? 06/26 15:52 06/29 07:00 06/28 07:00 06/27 07:00 06/26 07:00 ?? 06/29 11:20 06/29 11:20 06/29 06:59 06/28 06:59 06/27 06:59 Intake ? 1237 ?0 ? 1119 ?118 ?0 Output ? 3601 ?400 ? 2801 ?400 ?0 Net Total ?-2364 ? -400 ?-1682 ? -282 ?0 ? Physical Exam Constitutional: Alert, in no distress. Mental Status: Oriented to person, place and time. Respiratory: Equal and unlabored respiratory effort. Gastrointestinal: Abdomen soft, non-tender, non-distended. Normal bowel sounds. No pulsatile mass. No hepatosplenomegaly. Genitourinary: Quadriplegic. _ Home Medications abacavir/dolutegravir/lamiVUDine (Triumeq oral tablet)?1?tab(s)?By Mouth?Daily Alendronate (Fosamax 70 mg oral tablet)?1?tab(s)?70?Milligram?By Mouth?Every 7 days?Thursday BusPIRone (busPIRone 10 mg oral tablet)?20?Milligram?2?tablet?By Mouth?2 times a day Cefepime (cefepime 2 g intravenous injection)?2,000?Milligram?IVPB?Every 12 hours?for 1?Days Fluoxetine (FLUoxetine 40 mg oral capsule)?2?capsule?80?Milligram?By Mouth?Daily in AM Lorazepam (Ativan 1 mg oral tablet)?1?tab(s)?1?Milligram?By Mouth?2 times a day?as needed?as needed for anxiety Lorazepam (Ativan 1 mg oral tablet)?2?tab(s)?2?Milligram?By Mouth?Daily at bedtime?as needed?as needed for anxiety Nitrofurantoin (nitrofurantoin macrocrystals 100 mg oral capsule)?1?capsule?100?Milligram?By Mouth?Daily Quetiapine (SEROquel 300 mg oral tablet)?1?tab(s)?300?Milligram?By Mouth?Daily atbedtime Quetiapine (SEROquel 400 mg oral tablet)?1?tab(s)?400?Milligram?By Mouth?Daily atbedtime Solifenacin (solifenacin 10 mg oral tablet)?1?tab(s)?10?Milligram?By Mouth?2 times a day ValACYclovir (Valtrex 500 mg oral tablet)?500?Milligram?1?tablet?By Mouth?Daily Zolpidem (Ambien 10 mg oral tablet)?1?tab(s)?10?Milligram?By Mouth?Daily at bedtime?as needed?as needed for insomnia ? Inpatient Medications Medications (16) Active SCHEDULED: (9) abacavir/dolutegravir/lamiVUDine Tablet (Triumeq Tablet) ??1 tablet, By Mouth, Daily at bedtime BusPIRone 10 mg Tablet (busPIRone 10 mg oral tablet) ??20 mg, By Mouth, 2 times a day Cefepime 2 Gm Inj (Cefepime Extended IVPB) ??2,000 mg, IVPB, Every 8 hours Fluoxetine 20 mg Capsule (FLUoxetine 20 mg oral capsule) ??80 mg, By Mouth, Daily in AM Lorazepam 2 mg Tablet (LORazepam 2 mg oral tablet) ??2 mg, By Mouth, Daily at bedtime NaCl 0.9% Flush 3ml (NaCL 0.9% Flush) ??3 mL, IV Push, Every 8 hours Quetiapine 100 mg Tablet (SEROquel 100 mg oral tablet) ??300 mg, By Mouth, Daily at bedtime Quetiapine 200 mg Tablet (SEROquel 200 mg oral tablet) ??400 mg, By Mouth, Daily at bedtime ValACYclovir 500 mg Tablet (Valtrex 500 mg oral tablet) ??500 mg, By Mouth, Daily CONTINUOUS: (0) PRN: (7) Acetaminophen 325 mg Tablet (Acetaminophen Tablet) ??650 mg, By Mouth, Every 4 hours Docusate Sodium 100 mg Capsule (Docusate Sodium Capsule) ??100 mg 1 capsule, By Mouth, 2 times a day Lorazepam 1 mg Tablet (Ativan 1 mg oral tablet) ??1 mg, By Mouth, 3 times a day after meals NaCl 0.9% Flush 3ml (NaCL 0.9% Flush) ??3 mL, IV Push, Every 8 hours Senna Tablet ??8.6 mg 1 tablet, By Mouth, 2 times a day Simethicone 80 mg Chewable Tablet (Simethicone Tablet) ??80 mg, Chew, 3 times a day Zolpidem 5 mg Tablet (Ambien 5 mg oral tablet) ??10 mg, By Mouth, Daily at bedtime ? Results Recent Labs No labs resulted between 06/28/2023 00:00 and 06/29/2023 11:20? Abnormal Labs No lab data available. ?? Assessment/Plan ? Diagnoses JACI (acute kidney injury) ??(N17.9) Anxiety ??(F41.9) HIV disease ??(B20) Nephrolithiasis ??(N20.0) Pneumonia ??(J18.9) Quadriplegia ??(G82.50) S/P colostomy ??(Z93.3) UTI (urinary tract infection) ??(N39.0) ?? JACI (acute kidney injury) (N17.9): Nephrolithiasis (N20.0):?? UTI (urinary tract infection) (N39.0):??57-year-old female??Hope postop day 2??for cystoscopy rightstent with ??Thang.??SP tube??site closed, she??now has??indwelling Kaur catheter??which is draining clear yellow urine.??She is on cefepime.??She will continue with the Kaur catheter through discharge.??Dr. Blake discussed with at bedside??who agreed??to follow-up with??home??urologist Dr. Martinez ([place])??for??SP tube placement,??ureteroscopy, and stone removal.??I would recommend??primary team follow-up with??their office??so they are aware of this patient before discharge. ?? Recommendations: ?Antibiotics per primary team. ?Retain Kaur catheter??throughout discharge. ?Please reach out to patient's??home urologist Dr. Martinez??for outpatient follow-up. ?? This patient was seen and examined with attending physician Dr. Blake, in total, chart review, discussion with patient/primary team,??physical exam, planning took approximately??35 minutes. * Lara Torres RN: PERFORM, SIGN, VERIFY Event Display: Progress Note Hospital Authored Date: [id number] Patient: DARLING ENRIQUEZ Age: 57 years Sex: Female : 1965 Associated Diagnoses: None Author: Lara Torres RN Findings Problem Related to Alteration in Genitourinary : Alteration in Genitourinary Function/new 06/28/2023 17:00 EDT Alteration in Status Related to Urinary retention, Urology procedure Goals & Outcomes, Genitourinary Pt will achieve normal/improved fluid balance, Pt will maintainadequate GI function appropriate for pt, Pt will maintain adequate function appropriate for pt, Pt will maintain normal fluid balance, Pt will resume normal pattern of elimination, Pt/caregiver will state understanding of self-care skills Interventions, Assess/monitor/maintain Genitourinary status, Encourage PO fluid intake as allowed by diet, Teach signs & symptoms of distended bladder, Assess/monitor effects of antibiotics, Assess/monitor s/s of urinary tract infection, Teach Pt/caregiver s/s of urinary tract infection BH Goals/Interventions, Genitourinary Yes Genitourinary, Problem Start 06/27/2023 12:50 Reviewed Plan with, Genitourinary Patient, Spouse/significant other Patient Progression, Genitourinary Patient progressing according to plan Genitourinary, Problem Ongoing Yes . Nursing Data Genitourinary Data. : Genitourinary Data. 06/28/2023 17:56 EDT Indication for Urinary Catheter Urinary retention; bladder obstruction 06/28/2023 14:10 EDT Urinary catheter type Single Lumen Indwelling Urinary Catheter Urinary catheter size 18 Fr Urine Color [place] Urine Description Clear WNL except 06/28/2023 12:26 EDT Urinary catheter size 18 [place] Indication for Urinary Catheter Urinary retention; bladder obstruction . Narrative/Incidental Patient plan of care discussed with hospitalist. Suprapubic allie urine collected in promafit. Kaur cather pink/red-tinged urine output. IVF discontinued. Antibiotic given as ordered.. Evaluation Patient and aware of antibiotic for UTI. Therapeutic bed. Falls protocol. Monitor urine output and comfort level.. Discharge Information Case Management Discharge Plan : Case Management Discharge Plan Data 06/26/2023 15:11 EDT Discharge Level of Care at Discharge Short-term Acute Inpatient Note * Alexa Mark RN: PERFORM Event Display: Discharge/Transfer Note Hospital Authored Date: [id number] Nursing Discharge Note Entered On: 06/29/2023 15:04 EDT Performed On: 06/29/2023 15:03 EDT by Alexa Mark RN Nursing Discharge Note 2 Discharge Time : 06/29/2023 15:03 EDT Discharge Level of Care at Discharge : Home/Long Term/Foster Care Patient Left Unit Via : Wheelchair Patient Accompanied Off Unit with : Significant other DC Instructions Provided & Signed by Pt : Yes Patient Understands D/C Instructions : Yes Patient Instructions Discharge Signed : Yes Did Pt have Specialty Bed or Wound Vac : No Alexa Mark RN - 06/29/2023 15:03 EDT * Jesika SANTOS, Corey: PERFORM Event Display: Discharge/Transfer Note Hospital Authored Date: [id number] Patient: ??DARLING ENRIQUEZ ? Age:??57 Years?Sex:??Female?:??1965?? Patient Information Discharge Location: W3 Primary Care Physician: Tiffanie Casillas DO Admit Date/Time: 06/26/23 15:52 Discharge Disposition Discharge Disposition: Home: No Services Discharge Diagnosis JACI (acute kidney injury) (N17.9) Right ureter stone UTI Pseudomonas UTI Anxiety (F41.9) HIV disease (B20) Nephrolithiasis (N20.0) Pneumonia (J18.9) Quadriplegia (G82.50) S/P colostomy (Z93.3) ? _ Discharge Medications abacavir/dolutegravir/lamiVUDine (Triumeq oral tablet)?1?tab(s)?By Mouth?Daily Alendronate (Fosamax 70 mg oral tablet)?1?tab(s)?70?Milligram?By Mouth?Every 7 days?Thursday BusPIRone (busPIRone 10 mg oral tablet)?20?Milligram?2?tablet?By Mouth?2 times a day Fluoxetine (FLUoxetine 40 mg oral capsule)?2?capsule?80?Milligram?By Mouth?Daily in AM Lorazepam (Ativan 1 mg oral tablet)?1?tab(s)?1?Milligram?By Mouth?2 times a day?as needed?as needed for anxiety Lorazepam (Ativan 1 mg oral tablet)?2?tab(s)?2?Milligram?By Mouth?Daily at bedtime?as needed?as needed for anxiety Nitrofurantoin (nitrofurantoin macrocrystals 100 mg oral capsule)?1?capsule?100?Milligram?By Mouth?Daily Quetiapine (SEROquel 300 mg oral tablet)?1?tab(s)?300?Milligram?By Mouth?Daily atbedtime Quetiapine (SEROquel 400 mg oral tablet)?1?tab(s)?400?Milligram?By Mouth?Daily atbedtime Solifenacin (solifenacin 10 mg oral tablet)?1?tab(s)?10?Milligram?By Mouth?2 times a day ValACYclovir (Valtrex 500 mg oral tablet)?500?Milligram?1?tablet?By Mouth?Daily Zolpidem (Ambien 10 mg oral tablet)?1?tab(s)?10?Milligram?By Mouth?Daily at bedtime?as needed?as needed for insomnia ? Medications Started none Medications Discontinued none Doses Changed none PCP Follow-Up/Heads-Up f/u with urology regarding definitive management of the right ureter stone and also regarding re-insertion of supra pubic catheter Future Appointments Thursday 2:00 PM EDT ?? Where: [facility] Radiology [facility] Breast and [facility] [address], [address] [place] [address]- Status: Pending Objective Assessment and Plan ? 57-year-old female with a history of TBI, HIV, quadriplegia with colostomy, indwelling Kaur catheter admitted to the [facility] with fever, cough, shortness of breath was admitted for sepsis secondary to suspected pneumonia and UTI Urine culture growing Pseudomonas, ID consulted, recommends cefepime and completed doxycycline for suspected pneumonia, patient need suprapubic catheter replaced which was unsuccessful, kaur placed , and further evaluation??with ??ct abdomen was obtained , CT abdomen pelvis showed obstructing 6 mm + right UVJ junction with moderate hydroureteronephrosis hencetransferred to [facility] for urology consult /cystoscopy ?? Nephrolithiasis ??(N20.0) Right ureter stone UTI (urinary tract infection) (N39.0):?? Patient??has chronic suprapubic catheter,??presented with fever??and sepsis at [facility],??suprapubic catheter replacement was unsuccessful,?CT abdomen pelvis ordered which showed -abdomen pelvis showed obstructing 6 mm + right UVJ junction [facility] -s/p Urology intervention > Right cysto retrograde with stent placement -will need outpatient follow up for suprapubic catheter ( follows urologist [facility]) and also need outpatient management of right ureter stone by -She??received total 7 days of Cefepime for Pseudomonas UTI and at this time she has no fever, no suprapubic pain and no wbc so no need for further antibiotics. ?? JACI (acute kidney injury) (N17.9):??baseline creatinine 0.6, on admission to [place] was 1.6, today is 1,>??stopped IVF ?? Pneumonia (J18.9):??s/p doxycycline,??3days of steroids, improvement in her symptoms> completed course of cefepime ?? Anxiety (F41.9):??Ativan 2 mg 8 PM??and 1 mg at 11 PM an additional 1 mg during the day as as needed, ??Seroquel 700 mg, continue continue Bupsar and fluoxetine ?? HIV disease (B20):??Continue home medication, triumeq ?? Quadriplegia (G82.50):??Her baclofen pump ? . Physical Exam Patient ??seen and examined today chest: b/l cta, heart:s1s2+, abdomen:s oft, bs+, non tender, neuro: aaox3, extremities: quadriplegic suprapubic site is covered with colostomy bag to drain urine- at this time no drainage noted. d/w at bedside. urology- d/w patient and - advised to f/u with for suprapubic catheter placement- patient and agreed with the plan. Surgical Procedures Cystoscopy Retrograde Ureteroscopy W Las 06/27/2023 08:[address] Desir- Urology Pending Results No Pending Results Follow-Up Appointments Added Follow Up ?Time Frame ?Comments Alfredo Hastings?1 week> please call for appointment Tiffanie Casillas?2 weeks Home Health Face to Face ^HomeHealthFTF 32 minutes spent on discharge * Jas LYNCH, Alexa: PERFORM Event Display: Patient Education/Instruction Authored Date: [id number] Inpatient Adult Discharge Instructions [address] [address] Name: DARLING ENRIQUEZ : 1965 Visit: 06/26/2023 15:52:00 Current Date: 06/29/2023 14:21 Account: [id number] Inpatient Adult Discharge Instructions We would like to thank you for allowing us to assist you with your healthcare needs. The following includes patient education materials and information regarding your injury/illness. Our entire staffstrives to provide an excellent experience for our patients and their families. PLEASE ENSURE YOU FOLLOW-UP PER THE INSTRUCTIONS BELOW! ?? YOUR OPINION IS IMPORTANT TO US! Please complete the survey you may receive by mail or email. Your feedback will be used to make improvements to the healthcare experiences of our patients and their families. Surveys are administered by [employer] ?? If further treatment with your primary care physician or another doctor is recommended, it is important for you to keep the appointment. Call your primary care physician or return to the Emergency Department immediately if your condition worsens, fails to improve, or new symptoms develop. If you need to find a doctor, you can call [facility] for a referral at [phone] or toll free at [phone] ([phone]) or log in to [email or web address].. ?? [facility], in keeping with [facility] guidance, no longer requires face masks for staff, patientsor visitors in most situations. Similiar to time spent indoors at other locations, there is the chance that you were exposed to repiratory viruses during your time with us (such as flu or COVID-19). If you develop symptoms concerning for a viral respiratory infection, please seek testing (and treatment if indicated) from your medical provider or home test kit. ?? You can view and manage your care through the patient portal or by using a health care rachelle of your choosing. [employer] is a website that allows you to securely view your medical information including your hospital discharge summary, office visit summaries, medications and follow-up visits. You can also request appointments, renew medications, and request access to your medical information using a health care rachelle of your choosing, or just ask a question. You can enroll at [email or web address] or register during your next office visit. You have been discharged from [facility], Patient Care Unit: W3. If you have any questions regarding these instructions after you leave, please call us and we will be happy to assist you. [facility] Your Care Team Attending Physician Jesika SANTOS, Corey Consulting Providers Bryan Desir MD Discharging Providers Jesika SANTOS, Corey Reason for Admission SEPSIS KIDNEY STONE Your Diagnosis Nephrolithiasis Pneumonia UTI (urinary tract infection) HIV disease Quadriplegia S/P colostomy Anxiety JACI (acute kidney injury) Tests Performed Below is a partial list of the tests performed during your hospitalization. You may have had other tests and procedures not included in this list. Please discuss all test results with your provider. BUN Calcium Level CBC COVID-19 (2019 Novel Coronavirus) PCR Creatinine Electrolytes Glucose Level XR C-Arm < 1 Hour XR Urethrocystography Retrograde Primary Care Provider Tiffanie Casillas DO Advance Directive Health Care Proxy on File Yes - Health Care Proxy Discharge Vitals Temperature: 98.7 DegF Pulse Rate:??91 bpm??High Respiratory Rate: 17 br/min Systolic Blood Pressure: 124 mm Hg Diastolic Blood Pressure: 60 mm Hg Oxygen Saturation: 96 % Studies Pending All tests and labs ordered during this hospital stay have been completed unless listed below. Please discuss all pending results with your provider listed above in these instructions. ?? No incomplete studies found What to do next Instructions From Your Doctor Discharge Orders Scheduled Follow-Up Appointments Thursday 2:00 PM EDT ?? Where: [facility] Radiology [facility] [address], [address] [place] [address]- Status: Pending You Need to Schedule the Following Appointments Follow Up with??Alfredo Hastings Why: 1 week> please call for appointment Where: [address] [facility] [place] [address]- Business (1) Follow Up with??Tiffanie Casillas Why: 2 weeks Where: [address] [facility] [place] [address]- Business (1) Discharge Medications DARLING ENRIQUEZ :1965 Visit Date:06/26/2023 Medications: Please continue your medications until treatment is completed or stopped by your provider. Medications not listed below should be discontinued. Discuss any questions related to medications with your provider. What How Much When Instructions Next Dose Unchanged abacavir/ dolutegravir/ lamiVUDine (Triumeq oral tablet) 1 tab(s) Oral Daily Tomorrow Morning Unchanged Alendronate (Fosamax 70 mg oral tablet) 1 tab(s) Oral Every 7 days Thursday ?? Take on Thursday Unchanged BusPIRone (busPIRone 10 mg oral tablet) 2 tab(s) Oral Twice a day Tonight at 9pm Unchanged Fluoxetine (FLUoxetine 40 mg oral capsule) 2 capsule Oral Daily in the morning Tomorrow Morning Unchanged Lorazepam (Ativan 1 mg oral tablet) 2 tab(s) Oral Daily at Bedtime as needed for as needed for anxiety As Needed Unchanged Lorazepam (Ativan 1 mg oral tablet) 1 tab(s) Oral Twice a day as needed for as needed for anxiety As Needed Unchanged Nitrofurantoin (nitrofurantoin macrocrystals 100 mg oral capsule) 1 capsule Oral Daily Tomorrow Morning Unchanged Quetiapine (SEROquel 300 mg oral tablet) 1 tab(s) Oral Daily at Bedtime Tonight at bedtime Unchanged Quetiapine (SEROquel 400 mg oral tablet) 1 tab(s) Oral Daily at Bedtime Tonight at bedtime Unchanged Solifenacin (solifenacin 10 mg oral tablet) 1 tab(s) Oral Twice a day Tonight at 9pm Unchanged ValACYclovir (Valtrex 500 mg oral tablet) 1 tab(s) Oral Daily Tomorrow Morning Unchanged Zolpidem (Ambien 10 mg oral tablet) 1 tab(s) Oral Daily at Bedtime as needed for as needed for insomnia As Needed ?? What How Much When Comments Stop Taking Cefepime (cefepime 2 g intravenous injection) 2,000 Milligram IV Piggyback Every 12 hours Duration: 1 Days Test Results Below is a partial list of the most recent Laboratory test results done prior to this discharge. You may have had other tests and procedures not included in this list. Please discuss all test resultswith your provider. BUN (06/27/2023) ???BUN - 30 mg/dL Calcium Level (06/27/2023) ???Calcium - 8.8 mg/dL CBC (06/27/2023) ???WBC - 9.9 k/mm3???RBC - 3.32 m/mm3???Hgb - 11.9 Gm/dL???Hct - 33.5 %???MCV - 100.9 femtoliters???MCH - 35.8 pg???MCHC - 35.5 g/dL???Platelet Count - 371 k/mm3???RDW-SD - 59.0 femtoliters???MPV - 9.7 femtoliters???Nucleated RBC (Automated) - 0.0 #/100 WBC'S???Abs. NRBC - 0.0 k/mm3 COVID-19 (2019 Novel Coronavirus) PCR (06/26/2023) ???COVID-19 PCR Specimen Source - NASAL???COVID-19 PCR Result - NEGATIVE Creatinine (06/27/2023) ???Creatinine-Blood - 0.9 mg/dL???Estimated GFR Creatinine - 73 ML/MIN/1.73 M2 Electrolytes (06/27/2023) ???Sodium - 143 mmol/L???Potassium - 4.3 mmol/L???Chloride - 114 mmol/L???Bicarbonate Level - 17 mmol/L???Anion Gap - 12 Glucose Level (06/27/2023) ???Glucose Level - 100 mg/dL Allergies (NKA means No Known Allergies) Celexa??(dizziness, Nortriptyline allergy) Compazine??(vomiting, dizziness) Depakote Detrol??(dizzy) Dilaudid Duragesic Latex??(rash) OxyContin Pepcid??(dizzy) Serzone Spectazole 1% topical cream Tegretol??(tremors, hallucinations) Thorazine Viracept Ziagen ciclopirox topical ciprofloxacin??(rash) hydroxyzine mirtazapine nortriptyline oxybutynin??(dizziness) phenothiazines sucralfate??(headache) terconazole topical tizanidine??(dizzy, hallucinations) traZODONE Problems Active Problems??(4) HIV?? paraplegia?? Presence of implanted infusion pump?? Presence of intrathecal baclofen pump?? Education Materials Below is the list of Educational Leaflet Providered with your Discharge Instructions. Valuables and Belongings I fully understand and agree that [facility] accepts no responsibility for all my personal property including clothing, toilet articles, radios, jewelry, dentures, hearing aids, rings, money, or any other property that is in my possession or is brought to me after admission. I understand certain valuables may be placed in a hospital safe for a short period of time. I understand that the hospital is not liable for loss or damage due to accident, fire, or other natural occurrence while said property is in the safe. I accept full responsibility for any personal property that I keep with me, and will not hold the hospital responsible in case of loss or disappearance. I acknowledge that i have been encouraged to send valuables and belongings home. ?? No Valuables/Belongings: No valuables/belongings present Review of Valuable and Belonging List: Other: Patient did not arrive with any valuables or belongings, nurse notifed. Possessions released to: none to preop Date for Pt to Sign Valuables/Belongings: 06/27/23 07:25:00 ?? Other Discharge Information ?? Wound Assessment?? Wound Assessment?? Wound Location I: 4 lap sites to abdomen ? Pulmonary Rehab Status?? Pulmonary Rehab Discharge Status?? Respiratory Rate: 17 br/min ? Common Emergency Awareness Tips IS IT A STROKE? Act FAST and Check for these signs: FACE Does the face look uneven? ARM Does one arm drift down? SPEECH Does their speech sound strange? TIME Call at any sign of stroke ?? Heart Attack Signs Chest discomfort: Most heart attacks involve discomfort in the center of the chest and lasts more than a few minutes, or goes away and comes back. It can feel like uncomfortable pressure, squeezing, fullness or pain. Discomfort in upper body: Symptoms can include pain or discomfort in one or both arms, back, neck, jaw or stomach. Shortness of breath: With or without discomfort. Other signs: Breaking out in a cold sweat, nausea, or lightheaded. Remember, MINUTES DO MATTER. If you experience any of these heart attack warning signs, call to get immediate medical attention! ?? Smoking can increase your chances of developing chronic health problems and can cause harmful effects to other family members in your house. If you smoke, you are strongly encouraged to quit. Please call [facility] [employer] Link at [phone] or [phone] [facility]ICAL [facility] ([phone]) or log in to [email or web address] for referrals to smoking cessation programs. ?? 770 Suicide & Crisis Lifeline is available 27/04 if you or someone you know needs to find a reason to keep living. By calling 936 you'll be connected to a skilled, trained counselor at a crisis center in your area. INPATIENT DISCHARGE INSTRUCTIONS SIGNATURE PAGE ELIZABETHCAYETANODARLING Location:[facility] Registration Date and Time:06/26/2023 15:52 EDT Primary Care Physician: Tiffanie Casillas DO, Attending Physician: Jesika SANTOS, [facility], DARLING CARRENO, have received the above patient education materials/instructions and have verbalized understanding. If ambulance or transport services are being used I further acknowledge being given a choice of service. ?? If you need to contact me, please call me at this number: . Patient/Grinder Setup Operator Name: Patient/Grinder Setup Operator Signature: Relationship to Patient: Witness Name/Signature: Date: * Corey Canchola MD: PERFORM, SIGN, VERIFY Event Display: Patient Education Handout Authored Date: [id number] * Alexa Mark RN: PERFORM Event Display: Patient Education Leaflets Authored Date: [id number] Kidney Stone, Passed ?? [id number] Kidney Stone, Passed A kidney stone (nephrolithiasis) starts as tiny crystals. They form inside the kidney where urine is made. Most kidney stones enlarge to about 1/8 to 1/4 inch in size before leaving the kidney and moving toward the bladder. The sharp, cramping pain and nausea/vomiting you had??was the stone moving through the ureter. The ureter is the narrow tube joining the kidney to the bladder.??Once the stonereaches your bladder, the pain stops. Pain may start again as the stone passes through the bladder and out through the urethra.?? There are four types of kidney stones. Most are calcium stones. They are mostly made up of calcium oxalate. But some are made with calcium phosphate. The other three types include uric acid stones, struvite stones (from a preceding infection), and rarely, cystine stones. Home care These guidelines will help you care for yourself at home: ??? Drink plenty of fluids. This increases urine flow. It also reduces the chance that a new stone will form. Healthy adults (no heart/liver/kidney disease) who have had a kidney stone should drink 12 8-ounce glasses of fluids per day. Most of this should be water. The goal is to produce 1.5 to 2 quarts of almost colorless urine per 24 hours. ??? Unless another NSAID (non-steroidal anti-inflammatory drug) was given, you may take ibuprofen or naproxen. This is in addition to any narcotic pain medicine your healthcare provider prescribes. If you have chronic liver or kidney disease, or ever had a stomach ulcer or digestive bleeding, talk with your healthcare provider before using these medicines. ??? Collect the stone. If you were given a strainer, urinate into a jar then pour the urine through the strainer and into the toilet. Keep doing this for 24 hours after your pain stops. Save any stone that you find in the strainer. Bringit to your healthcare provider for analysis. Assessing the stone can help understand why it developed and how to reduce your risk for more stones. If you don't collect a stone, a 24- hour urine specimen can be done at a later time by your healthcare provider to figure out the cause of your stone. ?? Prevention Each year, there is a chance that a new stone will form.??The risk is highest if you have a family history of kidney stones or have certain chronic illnesses such as high blood pressure, obesity, or diabetes.??However, lifestyle and dietary changes can reduce the risk of getting another kidney stone. Most kidney stones are made of calcium. The following advice can help you prevent calcium stones.??If you don???t know the type of stone you have, follow this advice until the healthcare provider determines the cause of your stone. Things that help: ??? The most important thing you can do is to drink plenty of fluids each day, asdescribed above. ??? Foods such as wheat, rice, rye, barley, and beans contain phytate. Phytate is a compound??that may lower the risk for getting any type of stone. ??? Eat more fruits and vegetables, especially those high in potassium. ??? Eat foods high in natural citrate, such as fruit and fruit juices (using low sugar). ??? Low calcium contributes to calcium type kidney stones. Eat a normal calcium diet and talk with your healthcare provider if you are taking calcium supplements. It may beharmful to lower your calcium intake. New research shows that eating calcium-rich and oxalate-rich foods together lowers your risk for stones. This is because eating these foods together binds the minerals in the stomach and intestines before they can reach the kidneys. ??? Limit salt intake to 2??grams (1??teaspoon) per day. Extra sodium can cause you to lose more calcium in your urine. This increases your chances of developing a stone. Use limited amounts when cooking, and don???t add salt atthe table.??Processed and canned foods are usually high in salt. ??? Eat fewer high-oxalate foods. These include spinach, rhubarb, peanuts, beets, cashews, almonds, grapefruit, chocolate, tea, and grapefruit juice. Or eat them with calcium-rich foods. These foods include dairy, dark leafy greens, soy products, and calcium-enriched foods. ??? Reduce the amount of animal meat and high-protein foodsin your diet. This will lower your risk for uric acid stones. Animal meat and high-protein foods have high amounts of a compound called purines. Eating foods high in purines causes your body to make more uric acid. ??? Don't have??extra sugar (sucrose) or fructose (sweetener in many soft drinks) in??your??diet. ??? If you take vitamin C as a supplement, don't take more than 1,000 milligrams (mg) per day. More than 1,000 mg per day may cause your body to make more oxalate. ??? A dietitian or your healthcare provider can give you ideas on how to change your diet to prevent more kidney stones. ?? Follow-up care Follow up with your healthcare provider, or as advised. Even if you don't collect the kidney stone,it's possible to analyze a 24-hour urine collection for the cause of this stone. Discuss this with your healthcare provider. If you had an X-ray, CT scan, or other diagnostic test, you will be told of any findings that may affect your care. ?? Call 911 Call 911 if you have any of these: ??? Weakness, dizziness, or fainting ?? When to seek medical advice Call your healthcare provider right away??if any of these occur: ??? Severe pain that returns and is not relieved by pain medicines ??? Repeated vomiting or unable to keep down fluids ??? Fever of 100.4??F (38??C) or higher, or as directed by your healthcare provider ??? Blood clots in urine ??? Foul smelling or cloudy urine ??? Unable to pass urine for 8 hours or increasing bladder pressure ?? Last Reviewed Date: 2022 ?? [id number] [employer]. All rights reserved. This information is not intended as a substitute for professional medical care. Always follow your healthcare professional's instructions. ?? Patient Care team information Care Team Personnel Name: Tiffanie Casillas DO Position: Reference Physician Member Role: PCP Address: Address: [address] [place] [address] Name: Alicia Mckeon RN Position: [facility] AMB Nurse Member Role: Primary Care Nurse Name: Rivka Berry RN Position: [facility] RN Member Role: Primary Care Nurse Name: Sandi Dooley RN Position: [facility] RN Member Role: Primary Care Nurse Name: Meir Kumar RN Position: S RN Member Role: Primary Care Nurse Name: Almaz Perkins RN Position: S RN Member Role: Primary Care Nurse Name: Jeannine Lema RN Position: [facility] RN Supv Member Role: Primary Care Nurse Name: Alexa Mark RN Position: S RN Member Role: Primary Care Nurse Name: Venus Mayfield RN Position: S RN Member Role: Primary Care Nurse Name: Maryan Caro RN Position: [facility] RN Supv Member Role: Primary Care Nurse Care Team Related Persons Name: RISHABH ENRIQUEZ RENITA Address: [address] [address] Name: ANDREW BURGER Address: [address] [address] Name: AMEE BURGER Address: home [address] [place] [id number]
--- OUTSIDE RECORDS SUMMARY | 2023-07-02 14:08 | XMS_ITS | Continuity of Care Document ---
Author Name Unknown Organization [facility] Address [address] [place] [address]- Care Team Providers Care Slate Handler Name Role Phone Tiffanie Casillas DO Primary Care Physician Encounter [facility] Date(s): 05/11/23 - 06/10/[address] [id number] Attending Physician: Admtr, Ar8 Admitting Physician: Admtr, Ar8 Referring Physician: Admtr, Ar8 Allergies, Adverse Reactions, Alerts Substance Reaction Severity Status ciprofloxacin rash Active nortriptyline Active ciclopirox topical Active tizanidine dizzy, hallucinations Active phenothiazines Active Celexa dizziness Nortriptyline allergy Active Dilaudid Active Compazine vomiting, dizziness Active Depakote Active Viracept Active morphine not allergic Morphine allergy Active oxybutynin dizziness Active sucralfate headache Active Detrol dizzy Active Pepcid dizzy Active Tegretol tremors, hallucinations Acti ve terconazole topical Active mirtazapine Active Serzone Active Thorazine Active OxyContin Active Ziagen Active Spectazole 1% topical cream Active hydroxyzine Active traZODONE Active buspirone Resolved Duragesic Active Latex rash Active Medications acetaminophen 325 mg oral tablet 975 [...] 13:29:55 EDT Start Date: 06/22/08 Status: Ordered Problem List Condition Confirmation Course Effective Dates Status Health [facility] Informant Presence of intrathecal baclofen pump Confirmed Active Patient Care team information Care Team Personnel Name: Tiffanie Casillas DO Position: Reference Physician Member Role: PCP Address: Address: [address] [place] [id number] Name: Alicia Mckeon RN Position: [facility] AMB Nurse Member Role: Primary [...] Team Related Persons Name: JUDY ENRIQUEZ Address: [address] [address] Name: ANDREW BURGER Address: home [address] [place] [address] Name: AMEE BURGER Address: [address] [address]
[2023-07-02 15:11] VITALS: BMI 23.6
[2023-07-02 15:33] VITALS: BP 134/78; PULSE 87; RESP 16; TEMP 36.4; O2SAT 100
--- NOTE | 2023-07-02 16:11 | HO.ANESPROP2 ---
HPI - Anesthesia Eval Consult details Narrative: insertion suprapubic tube PMFSH Active Problems Active Problems: All Active Problems (Updated 07/01/23 @ 14:03 by Alfredo Hastings MD) Nephrolithiasis (Acute) Neurogenic urinary bladder disorder (Acute) Past Medical History Medical History HIV (human immunodeficiency virus infection) Hx of urinary tract infection Paraplegia Functional capacity: bed bound Family History Family History Father No problems noted. Mother No problems noted. Family history of problems with anesthesia: No Surgical History Surgical History History of foot surgery History of suprapubic catheter Hx of hand surgery History of Problems with Anesthesia: No Social History Social History Patient Tobacco Use Status: Never used Tobacco Advance Directives: No Advance Directives Information Provided: Yes Meds Allergies Allergy/AdvReac Type Severity Reaction Status Date / Time azithromycin [Zithromax] Allergy Unknown unknown Verified 07/01/23 13:53 ciprofloxacin [Cipro] Allergy Unknown unknown Verified 07/01/23 13:53 morphine Allergy Unknown unknown Verified 07/01/23 13:53 oxybutynin Allergy Unknown unknown Verified 07/01/23 13:53 oxycodone [OxyContin] Allergy Unknown unknown Verified 07/01/23 13:53 tolterodine [Detrol] Allergy Unknown unknown Verified 07/01/23 13:53 Compazine Allergy Unknown unknown Uncoded 07/01/23 13:53 Latex Gloves Allergy Unknown unknown Uncoded 07/01/23 13:53 Home Medications Medication Instructions Recorded Confirmed Last Taken Type abacavir 600 mg-dolutegravir 50 1 tab PO DAILY 08/07/20 07/10/22 Unknown History mg-lamivudine 300 mg tablet alendronate 70 mg tablet 70 mg PO QWEEK 08/07/20 07/10/22 Unknown History alendronate 70 mg-cholecalciferol 1 tab PO QWEEK 08/07/20 07/10/22 Unknown History (vitamin D3) 2,800 unit tablet buspirone 10 mg tablet mg PO 08/07/20 07/10/22 Unknown History fluoxetine 40 mg capsule mg PO 08/07/20 07/10/22 Unknown History lorazepam 1 mg tablet 0 mg PO 08/07/20 07/10/22 Unknown History quetiapine 300 mg tablet 300 mg PO BEDTIME 08/07/20 07/10/22 Unknown History quetiapine 400 mg tablet 400 mg PO BEDTIME 08/07/20 07/10/22 Unknown History valacyclovir 500 mg tablet 500 mg PO DAILY 08/07/20 07/10/22 Unknown History zolpidem 10 mg tablet 10 mg PO BEDTIME PRN 08/07/20 07/10/22 Unknown History Exam Exam Date and Time: July 02, 2023 161 Height,Weight and Vital Signs: Height 5 ft 9 in Weight 72.575 kg Last Vital Signs Temp 97.5 F 07/02/23 15:33 Pulse 87 07/02/23 15:33 Resp 16 07/02/23 15:33 BP 134/78 07/02/23 15:33 Pulse Ox 100 07/02/23 15:33 O2 Del Method Room Air 07/02/23 15:33 Airway Mallampati Class: III (small mouth) TM Dist: <=3cm Neck ROM: Full Heart: ok Lungs: ok Assessment and Plan Assessment Anesthesia Assessment: Anesthesia Plan Discussed and Chart Reviewed Final Anesthetic Review Family History of Problems with Anesthesia: No History of Problems with Anesthesia: No NPO: Yes ASA Class: IV and Emergency Final Preanesthetic Review: No Changes in Pt Med Stat, Meds/Allgs Chart Reviewed, Consent Obtained/Reviewed and Anes Risks/Benef Reviewed Patient Risk: High Procedure Risk: Low Anesthetic Plan Anesthetic Plan: GA, MAC: and Agree w/ Assess. and Plan Disposition: Standard PACU
--- NOTE | 2023-07-02 16:37 | MHC.SHP ---
Pre-Procedural Eval Section A Date of Service: 07/02/23 The patient is an INPATIENT: No Changes since office visit: No Cold of Flu in the past 2 weeks, No New Medical Problems, No Changes in Medication and No Patient answered all questions The History & Physical has been completed within 30 days and I have reviewed it.: Yes Section B Chief Complaint: Neuromuscular dysfunction of bladder,calculus kidn Details of Present Illness: Suprapubic tube displacement with ureteric kidney stone stent Medical History: Significant History History of Previous Operations: Relevant previous surgery/procedure and date(s) Allergies: Allergies Allergy/AdvReac Type Severity Reaction Status Date / Time azithromycin [Zithromax] Allergy Unknown unknown Verified 07/01/23 13:53 ciprofloxacin [Cipro] Allergy Unknown unknown Verified 07/01/23 13:53 morphine Allergy Unknown unknown Verified 07/01/23 13:53 oxybutynin Allergy Unknown unknown Verified 07/01/23 13:53 oxycodone [OxyContin] Allergy Unknown unknown Verified 07/01/23 13:53 tolterodine [Detrol] Allergy Unknown unknown Verified 07/01/23 13:53 Compazine Allergy Unknown unknown Uncoded 07/01/23 13:53 Latex Gloves Allergy Unknown unknown Uncoded 07/01/23 13:53 Review of Systems Sugical H&P ROS: Negative: Constitution, Cardiovascular, Respiratory, Neurological, Psychiatric, Hem-Onc, Allergic/Immunologic, Gastrointestinal, Genitourinary, Musculoskeletal, Integumentary, Endocrine and Eyes/Ears/Nose/Throat Exam Surgical H&P Exam: Normal: HEENT, Normal: Heart, Normal: Lungs, Normal: Extremities, Normal: Abdomen, Normal: Skin and Normal: Neurological Plan Diagnosis/Plan: Unchanged (cystoscopy, suprpubic tube placement, stent removal possible ureteroscopy) I have reviewed the history and physical and performed a pertinent physical examination on my patient. No changes have occurred unless specified. Time Spent With Patient Time: Total time managing care of this patient today ____ minutes.
--- NOTE | 2023-07-02 17:37 | P.OP_ITS ---
Operative Note Operative Note Date of Service: 07/02/23 Narrative: PreOperative Diagnosis: 1. Indwelling right ureteric stent 2. Displaced suprapubic tube Post Operative Diagnosis: 1. Indwelling right ureteric stent 2. Displaced suprapubic tube 3. Bladder stone Procedure: 1.) cystoscopy with removal of bladder stone 2. Removal of right ureteric stent 3. Suprapubic tube salvage Surgeon: Dr Alfredo Hastings Anesthesia: sedation Indications for procedure: well-known patient. Long-term suprapubic tube. Had been at [facility] approximately a week ago after suprapubic tube being dislodged in come out. Was found to have a distal right ureteric stone. Transferred to [facility]. Underwent stone procedure. The displaced suprapubic tube was not addressed at that admission. She contacted me yesterday and requested an attempt to replace the suprapubic tube. Procedure: After informed consent was verified the patient was brought to the operating room and placed in a supine position. Anesthesia was administered per protocol. The patient was prepped and draped in a sterile fashion. Safety pause time-out was performed. Antibiotics being given. Fluoroscopy was performed prior to draping. Stent was identified in the right side of the bladder. Safety pause time-out was reconfirmed with identified site. Cystoscopy performed. Stent seen indwelling. Bladder stone seen approximately 1 cm. Bladder stone was grasped and removed. Cystoscopy performed and stent was grasped and removed The old suprapubic tube entry site with seen. Using a Uro jet gel was placed in the tract to try and open continuity into the bladder. A Sensor guidewire was placed under fluoroscopy and was seen to coil within the bladder. This was confirmed with cystoscopy. Using urethral dilators the old suprapubic tract was dilated starting from 12 [place] up to 24 [place]. This was done under fluoroscopy to confirm advancement of suprapubic dilate till is beyond the old indwelling urolume stent. Once complete using a Seldinger technique a 22 [place] silicon Cruz catheter was placed into the bladder over the Sensor guidewire. Confirmed placement with cystoscopy. 10 cc placed in the balloon. The catheter was attached to a drainage bag she tolerated procedure well was transferred in stable condition to the recovery area Pathology: bladder stone Drains: 22 [place]ese suprapubic tube
[2023-07-02 17:42] VITALS: BP 113/71; PULSE 90; RESP 14; TEMP 36.2; O2SAT 99
[2023-07-02 17:57] VITALS: BP 139/83; PULSE 86; RESP 14; O2SAT 100
[2023-07-02] MEDS: Acetaminophen 325 MG TABLET 650 MG PO (17:57)
[2023-07-02 18:12] VITALS: BP 144/83; PULSE 86; RESP 14; TEMP 36.2; O2SAT 100
== END 2023-07-02 18:48 | disposition home or self-care (01) ==
PROVIDERS: PCP Student in an Organized Health Care Education/Training Program; Visit Provider Urology
PROC: (CPT 51102; principal; 2023-07-02 16:30)
PROC: (CPT 51705; 2023-07-02 16:30)
DX: T83.028A Displacement of other urinary catheter, initial encounter (principal); Y73.8 Miscellaneous gastroenterology and urology devices associated with adverse incidents, not elsewhere classified; N20.1 Calculus of ureter; N31.9 Neuromuscular dysfunction of bladder, unspecified; G82.20 Paraplegia, unspecified; B20 Human immunodeficiency virus [HIV] disease; Z87.440 Personal history of urinary (tract) infections; Z88.1 Allergy status to other antibiotic agents; Z79.899 Other long term (current) drug therapy
CPT/HCPCS: 51705; 88300; C1769; J0690; J2250; J3010

== ENCOUNTER → 2023-07-02 14:03 | Outpatient (BNV) | payer MEDICARE, MEDICAID, SELFPAY | PROVIDERS: PCP Student in an Organized Health Care Education/Training Program; Visit Provider Urology | DX: N31.0 Uninhibited neuropathic bladder, not elsewhere classified (principal); N21.0 Calculus in bladder; Z96.0 Presence of urogenital implants | CPT/HCPCS: 51040; 52310 ==

== ENCOUNTER 2023-08-06 14:05 | Outpatient (AMB) | payer MEDICARE, MEDICAID, SELFPAY ==
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
== END 2023-08-06 15:06 | disposition home or self-care (01) ==
PROVIDERS: Visit Provider Nurse Practitioner Family
DX: N20.0 Calculus of kidney (principal); N31.9 Neuromuscular dysfunction of bladder, unspecified
CPT/HCPCS: 99024

== ENCOUNTER → 2023-08-06 14:05 | Outpatient (BNVA) | payer MEDICARE, MEDICAID, SELFPAY | PROVIDERS: Visit Provider Nurse Practitioner Family | DX: N20.0 Calculus of kidney (principal); N31.9 Neuromuscular dysfunction of bladder, unspecified | CPT/HCPCS: 99212 ==

== ENCOUNTER → 2023-08-12 13:37 | Outpatient (BNVA) | payer MEDICARE, MEDICAID, SELFPAY | PROVIDERS: PCP Student in an Organized Health Care Education/Training Program; Visit Provider Urology | DX: N31.9 Neuromuscular dysfunction of bladder, unspecified (principal) | CPT/HCPCS: 51705 ==

== ENCOUNTER → 2023-09-09 14:23 | Outpatient (BNVA) | payer MEDICARE, MEDICAID, SELFPAY | PROVIDERS: PCP Student in an Organized Health Care Education/Training Program; Visit Provider Urology | DX: N31.9 Neuromuscular dysfunction of bladder, unspecified (principal) | CPT/HCPCS: 51705 ==

== ENCOUNTER → 2023-10-07 14:19 | Outpatient (BNVA) | payer MEDICARE, MEDICAID, SELFPAY | PROVIDERS: PCP Student in an Organized Health Care Education/Training Program; Visit Provider Nurse Practitioner Family | DX: N31.9 Neuromuscular dysfunction of bladder, unspecified (principal) | CPT/HCPCS: 51705 ==

== ENCOUNTER → 2023-11-05 14:13 | Outpatient (BNVA) | payer MEDICARE, MEDICAID, SELFPAY | PROVIDERS: PCP Student in an Organized Health Care Education/Training Program; Visit Provider Urology | DX: Z43.5 Encounter for attention to cystostomy (principal); N31.9 Neuromuscular dysfunction of bladder, unspecified | CPT/HCPCS: 51705 ==

== ENCOUNTER → 2023-12-10 14:51 | Outpatient (BNVA) | payer MEDICARE, MEDICAID, SELFPAY | PROVIDERS: PCP Student in an Organized Health Care Education/Training Program; Visit Provider Nurse Practitioner Family | DX: N31.9 Neuromuscular dysfunction of bladder, unspecified (principal) | CPT/HCPCS: 51705 ==

== ENCOUNTER → 2024-01-12 14:07 | Outpatient (BNVA) | payer MEDICARE, MEDICAID, SELFPAY | PROVIDERS: PCP Student in an Organized Health Care Education/Training Program; Visit Provider Nurse Practitioner Family | DX: N31.9 Neuromuscular dysfunction of bladder, unspecified (principal) | CPT/HCPCS: 51705 ==

== ENCOUNTER 2024-01-20 14:12 | Outpatient (REF) | payer MEDICARE, MEDICAID, SELFPAY ==
--- NOTE | ~2024-01-20 | US_ITS ---
EXAMINATION: US RETROPERITONEAL LIMITED (RENAL ONLY) CLINICAL INFORMATION: Calculus of kidney. COMPARISON: None available. TECHNIQUE: Real-time imaging of the kidneys. Technically limited study secondary to bowel gas and body habitus. FINDINGS: RIGHT KIDNEY: 8.8 x 4.0 x 4.2 cm (SAG x AP x TRV). Tiny punctate 1-2 mm right renal upper pole echogenic focus, possibly representing a nonobstructive calculus. No hydronephrosis. Limited visualization. Lobulated renal contour is difficult to evaluate due to severely limited visualization. LEFT KIDNEY: 9.7 x 5.7 x 3.7 cm (SAG x AP x TRV). 2 mm possible midpole calculus. No hydronephrosis. Lobulated renal contour difficult to evaluate due to severely limited visualization. Left renal 0.7 cm lower pole cyst with diffuse low-level internal echoes is difficult to fully characterize due to small size and limited visualization. US/US renal BI IMPRESSION: 1. Tiny punctate 1-2 mm possible bilateral renal calculi. No hydronephrosis. 2. Left renal 0.7 cm lower pole cyst with diffuse low-level internal echoes is difficult to fully characterize due to small size and limited visualization. 3. Bilateral lobulated renal contours are difficult to evaluate due to severely limited visualization. 4. CT scan with intravenous contrast employing renal mass protocol recommended for further evaluation.
== END 2024-01-20 14:13 | disposition home or self-care (01) ==
LOC: HO.US 14:12
PROVIDERS: PCP Student in an Organized Health Care Education/Training Program; Visit Provider Nurse Practitioner Family
DX: N20.0 Calculus of kidney (principal)
CPT/HCPCS: 76775

== ENCOUNTER → 2024-02-11 13:55 | Outpatient (BNVA) | payer MEDICARE, MEDICAID, SELFPAY | PROVIDERS: PCP Student in an Organized Health Care Education/Training Program; Visit Provider Nurse Practitioner Family | DX: N31.9 Neuromuscular dysfunction of bladder, unspecified (principal) | CPT/HCPCS: 51705 ==

== ENCOUNTER → 2024-03-10 14:54 | Outpatient (BNVA) | payer MEDICARE, MEDICAID, SELFPAY | PROVIDERS: PCP Student in an Organized Health Care Education/Training Program; Visit Provider Nurse Practitioner Family | DX: N31.9 Neuromuscular dysfunction of bladder, unspecified (principal) | CPT/HCPCS: 51705 ==

== ENCOUNTER → 2024-03-30 14:31 | Outpatient (BNVA) | payer MEDICARE, MEDICAID, SELFPAY | PROVIDERS: PCP Student in an Organized Health Care Education/Training Program; Visit Provider Nurse Practitioner Family ==

== ENCOUNTER → 2024-05-25 14:20 | Outpatient (BNVA) | payer MEDICARE, MEDICAID, SELFPAY | PROVIDERS: PCP Student in an Organized Health Care Education/Training Program; Visit Provider Nurse Practitioner Family | DX: N31.9 Neuromuscular dysfunction of bladder, unspecified (principal); Z46.6 Encounter for fitting and adjustment of urinary device | CPT/HCPCS: 51705 ==

== ENCOUNTER → 2024-06-22 14:46 | Outpatient (BNVA) | payer MEDICARE, MEDICAID, SELFPAY | PROVIDERS: PCP Student in an Organized Health Care Education/Training Program; Visit Provider Nurse Practitioner Family | DX: N31.9 Neuromuscular dysfunction of bladder, unspecified (principal); Z46.6 Encounter for fitting and adjustment of urinary device | CPT/HCPCS: 51705 ==

== ENCOUNTER → 2024-07-20 14:52 | Outpatient (BNVA) | payer MEDICARE, MEDICAID, SELFPAY | PROVIDERS: PCP Student in an Organized Health Care Education/Training Program; Visit Provider Nurse Practitioner Family | DX: N31.9 Neuromuscular dysfunction of bladder, unspecified (principal); Z46.6 Encounter for fitting and adjustment of urinary device; Z93.50 Unspecified cystostomy status | CPT/HCPCS: 51705 ==

== ENCOUNTER 2024-08-17 13:08 | Outpatient (AMB) | payer MEDICARE, MEDICAID, SELFPAY ==
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
[2024-08-17 13:28] VITALS: BP 124/78; PULSE 77; O2SAT 97
== END 2024-08-17 14:11 | disposition home or self-care (01) ==
PROVIDERS: PCP Student in an Organized Health Care Education/Training Program; Visit Provider Physician Assistant
DX: G82.50 Quadriplegia, unspecified (principal); B20 Human immunodeficiency virus [HIV] disease; M81.0 Age-related osteoporosis without current pathological fracture; F43.10 Post-traumatic stress disorder, unspecified

== ENCOUNTER → 2024-08-17 13:08 | Outpatient (BNVA) | payer MEDICARE, MEDICAID, SELFPAY | PROVIDERS: PCP Student in an Organized Health Care Education/Training Program; Visit Provider Physician Assistant | DX: G82.50 Quadriplegia, unspecified (principal); B20 Human immunodeficiency virus [HIV] disease; M81.0 Age-related osteoporosis without current pathological fracture; F43.10 Post-traumatic stress disorder, unspecified | CPT/HCPCS: 96127; 99202 ==

== ENCOUNTER → 2024-08-18 14:45 | Outpatient (BNVA) | payer MEDICARE, MEDICAID, SELFPAY | PROVIDERS: PCP Student in an Organized Health Care Education/Training Program | DX: Z43.5 Encounter for attention to cystostomy (principal); N31.9 Neuromuscular dysfunction of bladder, unspecified | CPT/HCPCS: 51705 ==

== ENCOUNTER → 2024-09-15 14:55 | Outpatient (BNVA) | payer MEDICARE, MEDICAID, SELFPAY | PROVIDERS: PCP Student in an Organized Health Care Education/Training Program; Visit Provider Nurse Practitioner Family | DX: N20.0 Calculus of kidney (principal); N31.9 Neuromuscular dysfunction of bladder, unspecified | CPT/HCPCS: 51705 ==

== ENCOUNTER → 2024-10-14 14:19 | Outpatient (BNVA) | payer MEDICARE, MEDICAID, SELFPAY | PROVIDERS: PCP Physician Assistant; Visit Provider Nurse Practitioner Family | DX: N31.9 Neuromuscular dysfunction of bladder, unspecified (principal) | CPT/HCPCS: 51705 ==

== ENCOUNTER → 2024-11-11 14:26 | Outpatient (BNVA) | payer MEDICARE, MEDICAID, SELFPAY | PROVIDERS: PCP Physician Assistant; Visit Provider Nurse Practitioner Family | DX: N31.9 Neuromuscular dysfunction of bladder, unspecified (principal); Z46.6 Encounter for fitting and adjustment of urinary device; Z93.50 Unspecified cystostomy status | CPT/HCPCS: 51705 ==

== ENCOUNTER → 2024-12-08 14:39 | Outpatient (BNVA) | payer MEDICARE, MEDICAID, SELFPAY | PROVIDERS: PCP Physician Assistant; Visit Provider Urology | DX: N31.9 Neuromuscular dysfunction of bladder, unspecified (principal); Z46.6 Encounter for fitting and adjustment of urinary device; Z93.50 Unspecified cystostomy status | CPT/HCPCS: 51705 ==

== ENCOUNTER → 2025-01-05 14:45 | Outpatient (BNVA) | payer MEDICARE, MEDICAID, SELFPAY | PROVIDERS: PCP Physician Assistant; Visit Provider Urology | DX: N31.9 Neuromuscular dysfunction of bladder, unspecified (principal); Z46.6 Encounter for fitting and adjustment of urinary device; Z93.50 Unspecified cystostomy status | CPT/HCPCS: 51705 ==

== ENCOUNTER → 2025-02-02 14:58 | Outpatient (BNVA) | payer MEDICARE, MEDICAID, SELFPAY | PROVIDERS: PCP Physician Assistant; Visit Provider Urology | DX: N31.9 Neuromuscular dysfunction of bladder, unspecified (principal); Z46.6 Encounter for fitting and adjustment of urinary device; Z93.50 Unspecified cystostomy status | CPT/HCPCS: 51705 ==

== ENCOUNTER 2025-02-15 14:18 | Outpatient (AMB) | payer MEDICARE, MEDICAID, SELFPAY ==
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
--- OUTSIDE RECORDS SUMMARY | 2025-02-15 14:22 | XMS_ITS | Data Portability ---
Author Organization ID - BRITTNI MURILLO MD [facility], Main Office Address [address] [place] [address] Assessment Encounter Date Assessment Date Assessment LastModified by Organization Details LastModified Time 01/14/2024 01/14/2024 Telemedicine. AUDIO. 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 pt home in ID w Scott, partner. . MD office in ID. Doximity. 18 min. cmartorell Not available 11/03/2024 16:22:48 Plan of Treatment Reminders Order Date Submit Date Provider Last Modified By Organization Details Last Modified Time Details Appointments B20 FOLLOW UP 2024 02:00P Yulisa De Santiago MD Not available Not available Not available Lab Hepatitis B virus, DNA, quant, viral load, PCR, serum or plasma 2024 025 [email or web address] [facility] (Centralized Electronic Ordering - All Locations), Patient Can Go To The Location Of Their Choice, 02/02/2025 16:22:45 unlisted lab - HBV fibrosure 2024 025 [email or web address] [facility] (Centralized Electronic Ordering - All Locations), Patient Can Go To The Location Of Their Choice, 02/02/2025 16:22:45 hepatitis C virus RNA, quant, PCR, serum or plasma 2024 025 [email or web address] [facility] (Centralized Electronic Ordering - All Locations), Patient Can Go To The Location Of Their Choice, 02/02/2025 16:22:45 CBC w/ diff 2024 025 [email or web address] [facility] (Centralized Electronic Ordering - All Locations), Patient Can Go To The Location Of Their Choice, 02/02/2025 16:22:44 HIV-1 RNA, quantitat ngoc, PCR, serum or plasma 2024 025 [email or web address] [facility] (Centralized Electronic Ordering - All Locations), Patient Can Go To The Location Of Their Choice, 02/02/2025 16:22:45 RPR (rapid plasma reagin), serum 2024 025 [email or web address] [facility] (Centralized Electronic Ordering - All Locations), Patient Can Go To The Location Of Their Choice, 02/02/2025 16:22:45 cd4 T-cells, blood 2024 025 [email or web address] [facility] (Centralized Electronic Ordering - All Locations), Patient Can Go To The Location Of Their Choice, 02/02/2025 16:22:45 CMP, serum or plasma 2024 025 [email or web address] [facility] (Centralized Electronic Ordering - All Locations), Patient Can Go To The Location Of Their Choice, 02/02/2025 16:22:45 CBC w/ diff 2024 025 [email or web address] [facility] (Centralized Electronic Ordering - All Locations), Patient Can Go To The Location Of Their Choice, 11/10/2024 11:11:18 ALT (alanine aminotran sferase), serum or plasma 2024 025 [email or web address] [facility] (Centralized Electronic Ordering - All Locations), Patient Can Go To The Location Of Their Choice, 11/10/2024 11:11:18 AST/SGOT (aspartat e aminotran sferase), serum or plasma 2024 025 [email or web address] [facility] (Centralized Electronic Ordering - All Locations), Patient Can Go To The Location Of Their Choice, 11/10/2024 11:11:18 creatinin e w/ estimated GFR (eGFR), serum or plasma 2024 025 [email or web address] [facility] (Centralized Electronic Ordering - All Locations), Patient Can Go To The Location Of Their Choice, [facility] 11/10/2024 11:11:18 HIV-1 RNA, quantitat ngoc, PCR, serum or plasma 2024 025 [email or web address] [facility] (Centralized Electronic Ordering - All Locations), Patient Can Go To The Location Of Their Choice, [id number] 11/10/2024 11:11:18 RPR (rapid plasma reagin), serum 2024 025 [email or web address] [facility] (Centralized Electronic Ordering - All Locations), Patient Can Go To The Location Of Their Choice, [facility] 11/10/2024 11:11:18 cd4 T-cells, blood 2024 025 [email or web address] [facility] (Centralized Electronic Ordering - All Locations), Patient Can Go To The Location Of Their Choice, [facility] 11/10/2024 11:11:18 hepatitis C virus RNA, quant, PCR, serum or plasma 2024 025 [email or web address] [facility] (Centralized Electronic Ordering - All Locations), Patient Can Go To The Location Of Their Choice, [facility] 11/10/2024 11:11:19 bacterial vaginosis + vaginitis panel, vaginal 2023 024 [email or web address] [facility] (Centralized Electronic Ordering - All Locations), Patient Can Go To The Location Of Their Choice, [facility] 05/13/2024 10:51:29 unlisted lab - hepatitis B viral DNA quant 2022 023 [employer], [address] [place] [address], [id number], 09/03/2023 16:48:11 unlisted lab - hepatitis delta anitibody 2022 023 [employer], [address] [place] [address], 16111, 09/03/2023 16:48:12 unlisted lab - HCV RNA quantitat ngoc tma 2022 023 [id number], [address] [place] [address], [id number], 09/03/2023 16:48:12 hepatitis C liver status biomarker panel, serum 2022 023 [employer] [facility], [address] [place] [address], 22562, 09/03/2023 16:48:12 CBC w/ diff 2022 023 [email or web address] [facility], [address] [place] [address], [id number], 09/03/2023 16:48:10 electroly bryce panel, blood 2022 023 [email or web address] [facility], [address] [place] [address], 94654, 09/03/2023 16:48:10 ALT (alanine aminotran sferase), serum or plasma 2022 023 [email or web address] [facility], [address] [place] [address], [id number], 09/03/2023 16:48:10 AST/SGOT (aspartat e aminotran sferase), serum or plasma 2022 023 [email or web address] [facility], [address] [place] [address], 53707, 09/03/2023 16:48:10 creatinin e w/ estimated GFR (eGFR), serum or plasma 2022 023 [employer] [facility], [address] [place] [address], 52761, 09/03/2023 16:48:11 HIV-1 RNA, quantitat ngoc, PCR, serum or plasma 2022 023 [employer], [address] [place] [address], [id number], 09/03/2023 16:48:11 RPR (rapid plasma reagin), serum 2022 023 [employer], [address] [place] [address], [id number], 09/03/2023 16:48:11 T-cell regulator y subsets panel, blood 2022 023 [email or web address] [facility], [address] [place] [address], [id number], 09/03/2023 16:48:11 Referral None recorded. Procedures None recorded. Surgeries None recorded. Imaging None recorded. Medication Orders Valtrex 500 mg tablet 2022 023 [facility] Not available 08/13/2023 14:44:02 Triumeq 600 mg-50 mg-300 mg tablet 2022 023 [facility] Not available 08/13/2023 14:44:00 Patient TargetsNo targets recorded. Patient InstructionsNo instructions recorded. Reason for Referral None Reported. Results Created Date Observation Date Name Description Value Unit Range Abnormal Flag Note LastModifiedBy Organization Detail LastModifiedTime 07/16/2007/17/2023 HIV VIRAL LOAD HIV viral load qual NOT DETECT ED not detect . HIV RNA not detec kelton, unabl e to repor t quant itati ve resul ts Not Available [facility] [address] [place] [address], 19163, 07/17/2023 09:23:56 07/16/2007/17/2023 HIV VIRAL LOAD performing lab [facility], a mem[facility] of [facility] [address] [place] [address] Medic al Direc cortez ortiz MD Not Available [facility] [address] [place] [address], 99529, 07/17/2023 09:23:56 12/30/19 24 12/30/2023 CBC WITH AUTO DIFF WBC 5.2 x10-3 /uL 4.8-10 .8 Not Available [facility] [address] [place] [address], 82069, 12/30/2023 15:19:04 12/30/19 24 12/30/2023 CBC WITH AUTO DIFF RBC 3.7 x10-6 /uL 3.8-4. 8 low Not Available [facility] [address] [place], [address], 12/30/2023 15:19:04 12/30/19 24 12/30/2023 CBC WITH AUTO DIFF hemoglobin 13.8 g/dL 11.5-1 6.0 Not Available [facility] [address] [place], [address], 12/30/2023 15:19:04 12/30/19 24 12/30/2023 CBC WITH AUTO DIFF hematocrit 40.2 % 35-47 Not Available [facility] [address] [place], [address], 12/30/2023 15:19:04 12/30/19 24 12/30/2023 CBC WITH AUTO DIFF MCV 108.6 fL 79-98 high Not Available [facility] [address] [place], [address], 12/30/2023 15:19:04 12/30/19 24 12/30/2023 CBC WITH AUTO DIFF MCH 37.3 pg 27-32 high Not Available [facility] [address] [place], [address], 12/30/2023 15:19:04 12/30/19 24 12/30/2023 CBC WITH AUTO DIFF MCHC 34.3 g/dL 32-37 Not Available [facility] [address] [place], [address], 12/30/2023 15:19:04 12/30/19 24 12/30/2023 CBC WITH AUTO DIFF RDW 15.9 % 11-15 high Not Available [facility] [address] [place], [address], 12/30/2023 15:19:04 12/30/19 24 12/30/2023 CBC WITH AUTO DIFF plt count 187 x10-3 /uL 130-40 0 Not Available [facility] [address] [place], [address], 12/30/2023 15:19:04 12/30/19 24 12/30/2023 CBC WITH AUTO DIFF mean platelet volume 10.5 fL 7-11 Not Available [facility] [address] [place], [address], 12/30/2023 15:19:04 12/30/19 24 12/30/2023 CBC WITH AUTO DIFF NRBC % auto 0.0 % <1 Not Available [facility] [address] [place], [address], 12/30/2023 15:19:04 12/30/19 24 12/30/2023 CBC WITH AUTO DIFF neut % 49.6 % Not Available [facility] [address] [place], [address], 12/30/2023 15:19:04 12/30/19 24 12/30/2023 CBC WITH AUTO DIFF lymph % 30.1 % Not Available [facility] [address] [place], [address], 12/30/2023 15:19:04 12/30/19 24 12/30/2023 CBC WITH AUTO DIFF mono % 13.3 % Not Available [facility] [address] [place], [address], 12/30/2023 15:19:04 12/30/19 24 12/30/2023 CBC WITH AUTO DIFF eos % 5.8 % Not Available [facility] [address] [place], [address], 12/30/2023 15:19:04 12/30/19 24 12/30/2023 CBC WITH AUTO DIFF baso % 1.0 % Not Available [facility] [address] [place], [address], 12/30/2023 15:19:04 12/30/19 24 12/30/2023 CBC WITH AUTO DIFF immature granulocytes % 0.2 % Not Available [facility] [address] [place], [address], 12/30/2023 15:19:04 12/30/19 24 12/30/2023 CBC WITH AUTO DIFF NRBC # auto 0.00 x10-3 /uL <0.1 Not Available [facility] [address] [place] [address], 45076, 12/30/2023 15:19:04 12/30/19 24 12/30/2023 CBC WITH AUTO DIFF absolute neut 2.58 x10-3 /uL 1.5-7. 0 Not Available [facility] [address] [place] [address], 92054, 12/30/2023 15:19:04 12/30/19 24 12/30/2023 CBC WITH AUTO DIFF lymph # 1.56 x10-3 /uL 1-5.0 Not Available [facility] [address] [place] [address], 65112, 12/30/2023 15:19:04 12/30/19 24 12/30/2023 CBC WITH AUTO DIFF mono # 0.69 x10-3 /uL 0.2-1. 0 Not Available [facility] [address] [place] [address], 91801, 12/30/2023 15:19:04 12/30/19 24 12/30/2023 CBC WITH AUTO DIFF eos # 0.30 x10-3 /uL 0-0.5 Not Available [facility] [address] [place] [address], 54229, 12/30/2023 15:19:04 12/30/19 24 12/30/2023 CBC WITH AUTO DIFF baso # 0.05 x10-3 /uL 0-0.2 Not Available [facility] [address] [place] [address], 34567, 12/30/2023 15:19:04 12/30/19 24 12/30/2023 CBC WITH AUTO DIFF immature granulocytes # 0.01 x10-3 /uL 0-0.03 Not Available [facility] [address] [place] [address], 70327, 12/30/2023 15:19:04 12/30/19 24 12/30/2023 CBC WITH AUTO DIFF performing lab Per[facility], a latrice r of [facility] [address] [place] [address] Medic al Direc cortez ortiz MD Not Available [facility] [address] [place], [address], 12/30/2023 15:19:04 12/30/19 24 12/30/2023 CREAT ININE WITH GFR creat 0.96 mg/dL 0.5-1. 1 Not Available [facility] [address] [place], [address], 12/30/2023 18:31:29 12/30/19 24 12/30/2023 CREAT ININE WITH GFR glomerular filtration rate 68 >60 This eGFR resul t was calcu lated using the CKD-E PI 2020 Creat inine Equat ion Not Available [facility] [address] [place], [address], 12/30/2023 18:31:29 12/30/19 24 12/30/2023 ELECT ROLYT ES sodium 143 mEq/L 135-14 5 Not Available [facility] [address] [place], [address], 12/30/2023 18:31:30 12/30/19 24 12/30/2023 ELECT ROLYT ES potassium 4.1 mmol/ L 3.5-5. 5 Not Available [facility] [address] [place], [address], 12/30/2023 18:31:30 12/30/19 24 12/30/2023 ELECT ROLYT ES chloride 109 mmol/ L 96-110 Not Available [facility] [address] [place], [address], 12/30/2023 18:31:30 12/30/19 24 12/30/2023 ELECT ROLYT ES CO2 26 mmol/ L 21-32 Not Available [facility] [address] [place], [address], 12/30/2023 18:31:30 12/30/19 24 12/30/2023 ELECT ROLYT ES anion gap 8 3-11 Not Available [facility] [address] [place], [address], 12/30/2023 18:31:30 12/30/19 24 12/30/2023 SGOT SGOT 22 U/L 10-42 Not Available [facility] [address] [place] [address], 41313, 12/30/2023 18:31:30 12/30/19 24 12/30/2023 SGPT SGPT 33 U/L 10-60 Not Available [facility] [address] [place] [address], 07690, 12/30/2023 18:31:31 12/30/19 24 12/30/2023 SGPT performing lab Per[facility], a [facility] [address] [place] [address] Medic al Direc cortez ortiz MD Not Available [facility] [address] [place] [address], 15875, 12/30/2023 18:31:31 12/30/19 24 12/30/2023 TREPO NEMAL AB treponemal Ab NEGATI VE negati ve Not Available [facility] [address] [place] [address], 23265, 12/30/2023 18:50:29 12/30/19 24 12/30/2023 TREPO NEMAL AB performing lab Perfor more [facility] basilio, a mem[facility] r of [facility] [address] [place] [address] Medic al Direpetey ortiz MD Not Available [facility] [address] [place] [address], 75182, 12/30/2023 18:50:29 12/30/19 24 12/31/2023 HCV VIRAL LOAD HCV viral load qual NOT DETECT ED not detect . HCV RNA not detec kelton, unabl e to repor t quant itati ve resul ts Not Available [facility] [address] [place] [address], 76021, 12/31/2023 13:44:09 12/30/19 24 12/31/2023 HIV VIRAL LOAD HIV viral load qual NOT DETECT ED not detect . HIV RNA not detec kelton, unabl e to repor t quant itati ve resul ts Not Available [facility] [address] [place] [address], 24642, 12/31/2023 13:44:10 12/30/19 24 12/31/2023 HIV VIRAL LOAD performing lab Perfor more [facility], a membe r of [facility] Of [address] [place] [address] Medic al Dire cortez oritz MD Not Available [facility] [address] [place] [address], 31605, 12/31/2023 13:44:10 12/30/19 24 01/01/2024 T4T8 PANEL percent cd3 92 % 55-86 high Not Available [facility] [address] [place] [address], 35574, 01/01/2024 14:23:21 12/30/19 24 01/01/2024 T4T8 PANEL absolute cd3 1492 cell/ uL 704-21 38 Not Available [facility] [address] [place] [address], 39602, 01/01/2024 14:23:21 12/30/19 24 01/01/2024 T4T8 PANEL percent cd8 45 % 9-37 high Not Available [facility] [address] [place] [address], 32479, 01/01/2024 14:23:21 12/30/19 24 01/01/2024 T4T8 PANEL absolute cd8 723 cell/ uL 190-83 2 Not Available [facility] [address] [place] [address], 54491, 01/01/2024 14:23:21 12/30/19 24 01/01/2024 T4T8 PANEL percent cd4 47 % 35-66 Not Available [facility] [address] [place] [address], 18346, 01/01/2024 14:23:21 12/30/19 24 01/01/2024 T4T8 PANEL absolute cd4 766 cell/ uL 443-14 71 Not Available [facility] [address] [place] [address], 32088, 01/01/2024 14:23:21 12/30/19 24 01/01/2024 T4T8 PANEL percent cd19 2.0 % 4-25 low Not Available [facility] [address] [place] [address], 97415, 01/01/2024 14:23:21 12/30/19 24 01/01/2024 T4T8 PANEL absolute cd19 37 cell/ uL 100-52 4 low Not Available [facility] [address] [place] [address], 77597, 01/01/2024 14:23:21 12/30/19 24 01/01/2024 T4T8 PANEL cd4 cd8 ratio 1.1 1.0-3. 7 Test perfo rmed at [facility] , [address] , [place] [address] [phone] Not Available [facility] [address] [place] [address], 11041, 01/01/2024 14:23:21 12/30/19 24 01/01/2024 T4T8 PANEL percent cd56 5.0 % 3-24 Not Available [facility] [address] [place] [address], 50552, 01/01/2024 14:23:21 12/30/19 24 01/01/2024 T4T8 PANEL absolute cd56 82 cell/ uL 60-500 Not Available [facility] [address] [place] [address], 85665, 01/01/2024 14:23:21 12/30/19 24 12/31/2023 HCV VIRAL LOAD HCV viral load qual NOT DETECT ED not detect . HCV RNA not detec kelton, unabl e to repor t quant itati ve resul ts Not Available [facility] [address] [place] [address], 62713, 01/01/2024 14:23:21 12/30/19 24 01/04/2024 HEPAT ITIS B VIRAL DNA QUANT HBV DNA Not detect ed not detect ed Not Available [facility] [address] [place], [address], 01/04/2024 11:16:48 12/30/19 24 01/04/2024 HEPAT ITIS B VIRAL DNA QUANT HBV-DNA <10 IU/mL <10 Not Available [facility] [address] [place], [address], 01/04/2024 11:16:48 12/30/19 24 01/04/2024 HEPAT ITIS B VIRAL DNA QUANT HBV log IU per mL <1.00 <1.00 Resul t Units : Log (10) IU/mL This proce dure utili zes a real- time polym erase chain react ion test from [facility]. The ampli ficat ion targe t is a conse rved regio n in the termi nal third of the hepat itis B surfa ce antig en gene. The lower limit of quant itati on is 10 IU/mL (1.00 Log IU/mL ) and the upppe r limit of quant itati on is 1 carmelo on IU/mL (9.00 Log IU/mL ). The quali tativ e limit of detec tion is 10 IU/mL (1.00 Log IU/mL ). A Not detec kelton resul t does not rule out infec tion. Test perfo rmed at [facility] , [address], [place] [address] [phone] Sara dominguez MD, PhD - Medic al Direc tor Not Available [facility] [address] [place] [address], 90752, 01/04/2024 11:16:48 12/30/19 24 01/04/2024 HEPAT ITIS B VIRAL DNA QUANT performing lab Perfor more [facility], a juliannbe r of [facility] Of [address] [place] [address] Medic al Direc cortez ortiz MD Not Available [facility] [address] [place], [address], 01/04/2024 11:16:48 12/30/19 24 01/04/2024 HEPAT ITIS DELTA ANITI BODY hepatitis delta Ab Negati ve negati ve No antib timmy to Hepat itis Delta agent was detec kelton. Order anti- HDV testi ng only when Hepat itis B virus infec tion has been confi rmed. INTER PRETI VE INFOR MATIO N: Hepat itis Delta Ab This test was devel oped and its perfo rmanc e germain cteri stics deter mined by [employer]. It has not been clear ed or appro shantal by the [place] Food and Drug Admin istra tion. This test was perfo rmed in a CLIA certi fied labor [id number] and is inten ded for clini erlinda purpo ses. Perfo rmed By: [employer] [facility] [address] [place] [address] [employer] Direc tor: Danielle harper MD, PhD [place] Numbe r: [id number] Not Available [facility] [address] [place], [address], 01/04/2024 16:38:18 12/30/19 24 01/04/2024 HEPAT ITIS DELTA ANITI BODY performing lab Perfor more Lab [facility], a membe r of [facility] [address] [facility] [place] [address] Medic al Direc cortez ortiz MD Not Available [facility] [address] [place], [address], 01/04/2024 16:38:18 12/30/19 24 01/04/2024 HEPAT ITIS DELTA ANITI BODY hepatitis delta Ab Negati ve negati ve No antib timmy to Hepat itis Delta agent was detec kelton. Order anti- HDV testi ng only when Hepat itis B virus infec tion has been confi rmed. INTER PRETI VE INFOR CUCO N: Hepat itis Delta Ab This test was devel oped and its perfo rmanc e germain cteri stics deter mined by [facility]. It has not been clear ed or appro shantal by the US Food and Drug Admin istra tion. This test was perfo rmed in a CLIA certi fied labor atory and is inten ded for clini erlinda purpo ses. Perfo rmed By: [facility] [address] [place] [address] Labor atory Direc tor: Danielle harper MD, PhD CLIA Numbe r: [id number] Not Available [facility] [address] [place], [address], 01/08/2024 16:41:16 12/30/19 24 01/08/2024 LIVER FIBRO SIS PANEL osiai-0-fwch oglobulin 278 mg/dL 106-27 9 Not Available [facility] [address] [place], [address], 01/08/2024 16:41:16 12/30/19 24 01/08/2024 LIVER FIBRO SIS PANEL haptoglobin 168 mg/dL 43-212 Not Available [facility] [address] [place], [address], 01/08/2024 16:41:16 12/30/19 24 01/08/2024 LIVER FIBRO SIS PANEL apolipoprote in A1 196 mg/dL 101-19 8 Not Available [facility] [address] [place], [address], 01/08/2024 16:41:16 12/30/19 24 01/08/2024 LIVER FIBRO SIS PANEL total bilirubin 0.3 mg/dL 0.2-1. 2 Not Available [facility] [address] [place], [address], 01/08/2024 16:41:16 12/30/19 24 01/08/2024 LIVER FIBRO SIS PANEL gamma glutamyl transpeptida se 23 U/L 3-65 Not Available [facility] [address] [place], [address], 01/08/2024 16:41:16 12/30/19 24 01/08/2024 LIVER FIBRO SIS PANEL alanine aminotransfe rase (ALT) 19 U/L 6-29 Not Available [facility] [address] [place] [address], 58296, 01/08/2024 16:41:16 12/30/19 24 01/08/2024 LIVER FIBRO SIS PANEL liver fibrosis score 0.13 Not Available [facility] [address] [place] [address], 32815, 01/08/2024 16:41:16 12/30/19 24 01/08/2024 LIVER FIBRO SIS PANEL liver fibrosis stage F0 Not Available [facility] [address] [place] [address], 95930, 01/08/2024 16:41:16 12/30/19 24 01/08/2024 LIVER FIBRO SIS PANEL liver fibrosis interpretati on SEE NOTE no fibro sis Fibro Test Score (f) Metav ir Score f>=0 and f<=0. 21 : F0 (no fibro sis) f>0.2 1 and f<=0. 27 : F0-F1 (no fibro sis) f>0.2 7 and f<=0. 31 : F1 (mini mal fibro sis) f>0.3 1 and f<=0. 48 : F1-F2 (mini mal fibro sis) f>0.4 8 and f<=0. 58 : F2 (mode rate fibro sis) f>0.5 8 and f<=0. 72 : F3 (adva nced fibro sis) f>0.7 2 and f<=0. 74 : F3-F4 (adva nced fibro sis) f>0.7 4 and f<=1. 00 : F4 (garland re fibro sis) Not Available [facility] [address] [place] [address], 95968, 01/08/2024 16:41:16 12/30/19 24 01/08/2024 LIVER FIBRO SIS PANEL necroinflamm atory act score 0.06 Not Available [facility] [address] [place] [address], 31954, 01/08/2024 16:41:16 12/30/19 24 01/08/2024 LIVER FIBRO SIS PANEL necroinflamm atory act grade A0 Not Available [facility] [address] [place], [address], 01/08/2024 16:41:16 12/30/19 24 01/08/2024 LIVER FIBRO SIS PANEL necroinflamm atory interpret SEE NOTE no activ ity ActiT est Score (a) Metav ir Score a>=0 and a<=0. 17 : A0 (no activ ity) a>0.1 7 and a<=0. 29 : A0-A1 (no activ ity) a>0.2 9 and a<=0. 36 : A1 (mini mal activ ity) a>0.3 6 and a< =0.52 : A1-A2 (mini mal activ ity) a>0.5 2 and a<=0. 60 : A2 (sign ifica nt activ ity) a>0.6 0 and a<=0. 62 : A2-A3 (sign ifica nt activ ity) a>0.6 2 and a<=1. 00 : A3 (garland re activ ity) Not Available [facility] [address] [place] [address], 78454, 01/08/2024 16:41:16 12/30/19 24 01/08/2024 LIVER FIBRO SIS PANEL liver fibrosis reference id [id number] Not Available [facility] [address] [place] [address], 35781, 01/08/2024 16:41:16 12/30/19 24 01/08/2024 LIVER FIBRO SIS PANEL liver fibrosis footnote SEE NOTE The relia bilit y of resul ts is depen dent on compl iance with the prean alyti erlinda and alberto tical condi tions recom manish d by [employer]. The tests have to be defer red for: acute hemol ysis, acute hepat itis, acute infla mmati on, extra hepat ic devin stasi s. The advic e of a speci alist grover d be sough t for inter preta tion in chron ic hemol ysis and Gilbe rt's syndr ome. The test inter preta tion is not valid ated in liver trans plant patie nts. [place] extre me value s of one of the compo nents shodianne d lead to cauti on in inter preti ng the resul ts. In case of disco rdanc e betwe en a biops y resul t and a test, it is recom manish d to seek the advic e of a speci alist . The cause s of these disco rdanc es could be due to a flaw of the test or to a flaw in the biops y: i.e. a liver biops y has a 33% varia bilit y rate for one fibro sis stage . Fibro Test is inter preta ble for chron ic hepat itis B and C, alcoh olic and non alcoh olic steat osis. ActiT est is inter preta ble for chron ic hepat itis B and C. The perfo rmanc e germain cteri stics have been deter mined by [facility] Bryant dania Mendezi calixto, [facility] . It has not been clear ed or appro shantal by the U.S. Food and Drug Admin istra tion. Perfo rmanc e germain cteri stics refer to the alberto tical perfo rmanc e of the test. [facility], the assoc iated logo, Bryant ls Vanessai tute and all assoc iated [facility] are the laila tered trade bangura of [facility]. All third constitution party bangura - (R) and (TM) - are the prope rty of their respe ctive teacher of the emotionally disturbed s. (C) 1999- 2013 [facility] [employer] porat ed. All right s reser shantal. Test Perfo rmed at: [facility] [id number] [place] [facility] [place] [address] Dannie rivera MD, PhD, SALTY Not Available [address], [place], [address], 01/08/2024 16:41:16 12/30/19 24 01/08/2024 LIVER FIBRO SIS PANEL performing lab Perfor more [facility], a membe [facility] of [facility] [address] [place] [address] Medic al Dire cortez ortiz MD Not Available [facility] [address], [place], [address], 01/08/2024 16:41:16 04/28/20 24 04/29/2024 T-SAMMY L ACTIV ATION , CD8 SUBSE TS absolute cd 3 1693 /uL 622-24 02 Not Available [facility] ([facility]) [address] [place], [address], 05/02/2024 18:05:54 04/28/20 24 04/29/2024 T-SAMMY L ACTIV ATION , CD8 SUBSE TS % cd 3 pos. lymph. 89.1 % 57.5-8 6.2 above high normal Not Available [facility] ([facility]) [address] [place], [address], 05/02/2024 18:05:54 04/28/20 24 04/29/2024 T-SAMMY L ACTIV ATION , CD8 SUBSE TS abs.cd8+hla- dr+lymph 319 /uL 0-117 above high normal This test was devel oped and its perfo rmanc e germain cteri stics deter mined by [employer]. It has not been clear ed or appro shantal by the Food and Drug Admin istra tion. Not Available [facility] ([facility]) [address] [place], [address], 05/02/2024 18:05:54 04/28/20 24 04/29/2024 T-SAMMY L ACTIV ATION , CD8 SUBSE TS % cd8+hla-dr+ lymphs 16.8 % 0.0-4. 9 above high normal This test was devel oped and its perfo rmanc e germain cteri stics deter mined by [employer]. It has not been clear ed or appro shantal by the Food and Drug Admin istra tion. Not Available [facility] ([facility]) [address] [place], [address], 05/02/2024 18:05:54 04/28/20 24 04/29/2024 T-SAMMY L ACTIV ATION , CD8 SUBSE TS % cd3+cd25+ lymphs 21.7 % 4.9-25 .9 This test was devel oped and its perfo rmanc e germain cteri stics deter mined by [facility]. It has not been clear ed or appro shantal by the Food and Drug Admin istra tion. Not Available [facility] ([facility]) [address], [place], [address], 05/02/2024 18:05:54 04/28/20 24 04/29/2024 T-SAMMY L ACTIV ATION , CD8 SUBSE TS abs.cd3+cd25 + lymphs 412 /uL 79-535 This test was devel oped and its perfo rmanc e germain cteri stics deter mined by [facility]. It has not been clear ed or appro shantal by the Food and Drug Admin istra tion. Not Available [facility] ([facility]) [address], [place], [address], 05/02/2024 18:05:54 04/28/20 24 04/29/2024 T-SAMMY L ACTIV ATION , CD8 SUBSE TS % cd8+cd38+ lymphs 25.6 % 0.0-17 .7 above high normal This test was devel oped and its perfo rmanc e germain cteri stics deter mined by [facility]. It has not been clear ed or appro shantal by the Food and Drug Admin istra tion. Not Available [facility] ([facility]) [address], [place], [address], 05/02/2024 18:05:54 04/28/20 24 04/29/2024 T-SAMMY L ACTIV ATION , CD8 SUBSE TS abs.cd8+cd38 + lymphs 486 /uL 0-381 above high normal This test was juwan swartz and its perfo rmanc e germain cteri stics deter mined by [facility]. It has not been clear ed or appro shantal by the Food and Drug Admin istra tion. Not Available [facility] ([facility]) [address] [place], [address], 05/02/2024 18:05:54 04/28/20 24 04/29/2024 T-SAMMY L ACTIV ATION , CD8 SUBSE TS WBC 6.7 x10e3 /uL 3.4-10 .8 normal Not Available [facility] ([facility]) [address] [place], [address], 05/02/2024 18:05:54 04/28/20 24 04/29/2024 T-SAMMY L ACTIV ATION , CD8 SUBSE TS RBC 3.19 x10e6 /uL 3.77-5 .28 below low normal Not Available [facility] ([facility]) [address] [place], [address], 05/02/2024 18:05:54 04/28/20 24 04/29/2024 T-SAMMY L ACTIV ATION , CD8 SUBSE TS hemoglobin 11.9 g/dL 11.1-1 5.9 normal Not Available [facility] ([facility]) [address] [place], [address], 05/02/2024 18:05:54 04/28/20 24 04/29/2024 T-SAMMY L ACTIV ATION , CD8 SUBSE TS hematocrit 35.3 % 34.0-4 6.6 normal Not Available [facility] ([facility]) [address] [place], [address], 05/02/2024 18:05:54 04/28/20 24 04/29/2024 T-SAMMY L ACTIV ATION , CD8 SUBSE TS MCV 111 fL 79-97 above high normal Not Available [facility] ([facility]) [address] [place], [address], 05/02/2024 18:05:54 04/28/20 24 04/29/2024 T-SAMMY L ACTIV ATION , CD8 SUBSE TS MCH 37.3 pg 26.6-3 3.0 above high normal Not Available [facility] ([facility]) [address], [place], [address], 05/02/2024 18:05:54 04/28/20 24 04/29/2024 T-SAMMY L ACTIV ATION , CD8 SUBSE TS MCHC 33.7 g/dL 31.5-3 5.7 normal Not Available [facility] ([facility]) [address], [place], [address], 05/02/2024 18:05:54 04/28/20 24 04/29/2024 T-SAMMY L ACTIV ATION , CD8 SUBSE TS RDW 13.7 % 11.7-1 5.4 Not Available [facility] ([facility]) [address], [place], [address], 05/02/2024 18:05:54 04/28/20 24 04/29/2024 T-SAMMY L ACTIV ATION , CD8 SUBSE TS platelets 209 x10e3 /uL 150-45 0 normal Not Available [facility] ([facility]) [address] [place], [address], 05/02/2024 18:05:54 04/28/20 24 04/29/2024 T-SAMMY L ACTIV ATION , CD8 SUBSE TS neutrophils 55 % not estab. normal Not Available [facility] ([facility]) [address] [place], [address], 05/02/2024 18:05:54 04/28/20 24 04/29/2024 T-SAMMY L ACTIV ATION , CD8 SUBSE TS lymphs 28 % not estab. normal Not Available [facility] ([facility]) [address] [place], [address], 05/02/2024 18:05:54 04/28/20 24 04/29/2024 T-SAMMY L ACTIV ATION , CD8 SUBSE TS monocytes 12 % not estab. normal Not Available [facility] ([facility]) [address] [place], [address], 05/02/2024 18:05:54 04/28/20 24 04/29/2024 T-SAMMY L ACTIV ATION , CD8 SUBSE TS eos 4 % not estab. normal Not Available [facility] ([facility]) [address] [place], [address], 05/02/2024 18:05:54 04/28/20 24 04/29/2024 T-SAMMY L ACTIV ATION , CD8 SUBSE TS basos 1 % not estab. normal Not Available [facility] ([facility]) [address], [place], [address], 05/02/2024 18:05:54 04/28/20 24 04/29/2024 T-SAMMY L ACTIV ATION , CD8 SUBSE TS immature cells [employer] Not Available [facility] ([facility]) [address], [place], [address], 05/02/2024 18:05:54 04/28/20 24 04/29/2024 T-SAMMY L ACTIV ATION , CD8 SUBSE TS neutrophils (absolute) 3.7 x10e3 /uL 1.4-7. 0 normal Not Available [facility] ([facility]) [address] [place], [address], 05/02/2024 18:05:54 04/28/20 24 04/29/2024 T-SAMMY L ACTIV ATION , CD8 SUBSE TS lymphs (absolute) 1.9 x10e3 /uL 0.7-3. 1 normal Not Available [facility] ([facility]) [address] [place], [address], 05/02/2024 18:05:54 04/28/20 24 04/29/2024 T-SAMMY L ACTIV ATION , CD8 SUBSE TS monocytes(ab solute) 0.8 x10e3 /uL 0.1-0. 9 normal Not Available [facility] ([facility]) [address], [place], [address], 05/02/2024 18:05:54 04/28/20 24 04/29/2024 T-SAMMY L ACTIV ATION , CD8 SUBSE TS eos (absolute) 0.3 x10e3 /uL 0.0-0. 4 normal Not Available [facility] ([facility]) [address], [place], [address], 05/02/2024 18:05:54 04/28/20 24 04/29/2024 T-SAMMY L ACTIV ATION , CD8 SUBSE TS baso (absolute) 0.1 x10e3 /uL 0.0-0. 2 normal Not Available [facility] ([facility]) [address], [place], [address], 05/02/2024 18:05:54 04/28/20 24 04/29/2024 T-SAMMY L ACTIV ATION , CD8 SUBSE TS immature granulocytes 0 % not estab. Not Available [facility] ([facility]) [address] [place], [address], 05/02/2024 18:05:54 04/28/20 24 04/29/2024 T-SAMMY L ACTIV ATION , CD8 SUBSE TS immature grans (abs) 0.0 x10e3 /uL 0.0-0. 1 Not Available [facility] ([facility]) [address] [place], [address], 05/02/2024 18:05:54 04/28/20 24 04/29/2024 T-SAMMY L ACTIV ATION , CD8 SUBSE TS NRBC [employer] Not Available [facility] ([facility]) [address] [place], [address], 05/02/2024 18:05:54 04/28/20 24 04/29/2024 T-SAMMY L ACTIV ATION , CD8 SUBSE TS hematology comments: [employer] Not Available [facility] ([facility]) [address] [place], [address], 05/02/2024 18:05:54 04/28/20 24 05/02/2024 T-SAMMY L ACTIV ATION , CD8 SUBSE TS absolute cd 4 helper 891 /uL 359-15 19 Not Available [facility] ([facility]) [address] [place], [address], 05/02/2024 18:05:54 04/28/20 24 05/02/2024 T-SAMMY L ACTIV ATION , CD8 SUBSE TS % cd 4 pos. lymph. 46.9 % 30.8-5 8.5 Not Available [facility] ([facility]) [address], [place], [address], 05/02/2024 18:05:54 04/28/20 24 05/02/2024 T-SAMMY L ACTIV ATION , CD8 SUBSE TS absolute cd 8 (supp) 922 /uL 109-89 7 above high normal Not Available [facility] ([facility]) [address] [place], [address], 05/02/2024 18:05:54 04/28/20 24 05/02/2024 T-SAMMY L ACTIV ATION , CD8 SUBSE TS % cd 8 pos. lymph. 48.5 % 12.0-3 5.5 above high normal Not Available [facility] ([facility]) [address] [place], [address], 05/02/2024 18:05:54 04/28/20 24 05/02/2024 T-SAMMY L ACTIV ATION , CD8 SUBSE TS cd4/cd8 ratio 0.97 0.92-3 .72 Not Available [facility] ([facility]) [address] [facility] [place], [address], 05/02/2024 18:05:54 04/28/20 24 04/29/2024 ELECT ROLYT E PANEL sodium 139 mmol/ L 134-14 4 normal Not Available [facility] ([facility]) [address] [place], [address], 05/02/2024 18:05:55 04/28/20 24 04/29/2024 ELECT ROLYT E PANEL potassium 4.2 mmol/ L 3.5-5. 2 normal Not Available [facility] ([facility]) [address] [place], [address], 05/02/2024 18:05:55 04/28/20 24 04/29/2024 ELECT ROLYT E PANEL chloride 104 mmol/ L 96-106 normal Not Available [facility] ([facility]) [address] [place], [address], 05/02/2024 18:05:55 04/28/20 24 04/29/2024 ELECT ROLYT E PANEL carbon dioxide, total 20 mmol/ L 20-29 normal Not Available [facility] ([facility]) [address] [place], [address], 05/02/2024 18:05:55 04/28/20 24 04/29/2024 RNA, REAL TIME PCR (GRAP H) HIV-1 RNA by PCR <20 copie s/mL HIV-1 RNA not detec kelton The repor table range for this assay is 20 to 10,00 0,000 copie s HIV-1 RNA/m L. Not Available [facility] ([facility]) [address] [place], [address], 05/02/2024 18:05:55 04/28/20 24 04/29/2024 RNA, REAL TIME PCR (GRAP H) log10 HIV-1 RNA COMMEN T log10 copy/ mL Unabl e to calcu late resul t since non-n umeri c resul t obtai fabi for compo nent test. Not Available [facility] ([facility]) [address], [place], [address], 05/02/2024 18:05:55 04/28/20 24 04/30/2024 RNA, REAL TIME PCR (GRAP H) pdf . Not Available [facility] ([facility]) [address], [place], [address], 05/02/2024 18:05:55 04/28/20 24 04/29/2024 HCV ANTIB TIMMY hep C virus Ab Reacti ve non reacti ve abnormal HCV antib timmy alone does not diffe renti ate betwe en previ ously resol shantal infec tion and activ e infec tion. Equiv ocal and React ngoc HCV antib timmy resul ts shoul d be follo wed up with an HCV RNA test to suppo rt the diagn osis of activ e HCV infec tion. Not Available [facility] ([facility]) [address], [place], [address], 05/02/2024 18:05:56 04/28/20 24 04/29/2024 CREAT ININE creatinine 1.05 mg/dL 0.57-1 .00 above high normal Not Available [facility] ([facility]) [address], [place], [address], 05/02/2024 18:05:56 04/28/20 24 04/29/2024 CREAT ININE eGFR 61 mL/mi n/1.7 3 >59 normal Not Available [facility] ([facility]) [address], [place], [address], 05/02/2024 18:05:56 04/28/20 24 04/29/2024 AST (SGOT ) AST (SGOT) 30 IU/L 0-40 normal Not Available [facility] ([facility]) [address], [place], [address], 05/02/2024 18:05:57 04/28/20 24 04/29/2024 ALT (SGPT ) ALT (SGPT) 19 IU/L 0-32 normal Not Available [facility] ([facility]) [address], [place], [address], 05/02/2024 18:05:57 04/28/20 24 04/29/2024 RPR RPR Non Reacti ve non reacti ve Not Available [facility] ([facility]) [address], [place], [address], 05/02/2024 18:05:58 08/03/2008/05/2024 HCV ANTIB TIMMY hep C virus Ab Reacti ve non reacti ve abnormal HCV antib timmy alone does not diffe renti ate betwe en previ ously resol shantal infec tion and activ e infec tion. Equiv ocal and React ngoc HCV antib timmy resul ts shoul d be follo wed up with an HCV RNA test to suppo rt the diagn osis of activ e HCV infec tion. Not Available [facility] ([facility]) [address], [place], [address], 08/05/2024 14:06:41 08/03/2008/04/2024 CBC/D /PLT W/ REFLE X RODRIGO TIN WBC 7.3 x10e3 /uL 3.4-10 .8 normal Not Available [facility] ([facility]) [address], [place], [address], 2024 18:05:58 08/03/2008/04/2024 CBC/D /PLT W/ REFLE X RODRIGO TIN RBC 3.73 x10e6 /uL 3.77-5 .28 below low normal Not Available [facility] ([facility]) [address], [place], [address], 2024 18:05:58 08/03/2008/04/2024 CBC/D /PLT W/ REFLE X RODRIGO TIN hemoglobin 13.8 g/dL 11.1-1 5.9 normal Not Available [facility] ([facility]) [address], [place], [address], 2024 18:05:58 08/03/2008/04/2024 CBC/D /PLT W/ REFLE X RODRIGO TIN hematocrit 40.7 % 34.0-4 6.6 normal Not Available [facility] ([facility]) [address] [place], [address], 2024 18:05:58 08/03/2008/04/2024 CBC/D /PLT W/ REFLE X RODRIGO TIN MCV 109 fL 79-97 above high normal Not Available [facility] ([facility]) [address] [place], [address], 2024 18:05:58 08/03/2008/04/2024 CBC/D /PLT W/ REFLE X RODRIGO TIN MCH 37.0 pg 26.6-3 3.0 above high normal Not Available [facility] ([facility]) [address] [place], [address], 2024 18:05:58 08/03/2008/04/2024 CBC/D /PLT W/ REFLE X RODRIGO TIN MCHC 33.9 g/dL 31.5-3 5.7 normal Not Available [facility] ([facility]) [address] [place], [address], 2024 18:05:58 08/03/2008/04/2024 CBC/D /PLT W/ REFLE X RODRIGO TIN RDW 13.4 % 11.7-1 5.4 Not Available [facility] ([facility]) [address] [place], [address], 2024 18:05:58 08/03/2028 0708/04/2024 CBC/D /PLT W/ REFLE X RODRIGO TIN platelets 233 x10e3 /uL 150-45 0 normal Not Available [facility] ([facility]) [address], [place], [address], 2024 18:05:58 08/03/20 24 08/04/2024 CBC/D /PLT W/ REFLE X RODRIGO TIN neutrophils 56 % not estab. normal Not Available [facility] ([facility]) [address], [place], [address], 2024 18:05:58 08/03/2008/04/2024 CBC/D /PLT W/ REFLE X RODRIGO TIN lymphs 27 % not estab. normal Not Available [facility] ([facility]) [address], [place], [address], 2024 18:05:58 08/03/20 24 08/04/2024 CBC/D /PLT W/ REFLE X RODRIGO TIN monocytes 11 % not estab. normal Not Available [facility] ([facility]) [address], [place], [address], 2024 18:05:58 08/03/20 24 08/04/2024 CBC/D /PLT W/ REFLE X RODRIGO TIN eos 5 % not estab. normal Not Available [facility] ([facility]) [address], [place], [address], 2024 18:05:58 08/03/2008/04/2024 CBC/D /PLT W/ REFLE X RODRIGO TIN basos 1 % not estab. normal Not Available [facility] ([facility]) [address] [place] [address], [place], [address], 2024 18:05:58 08/03/20 24 08/04/2024 CBC/D /PLT W/ REFLE X RODRIGO TIN immature cells [employer] Not Available [facility] ([facility]) [address], [place], [address], 2024 18:05:58 08/03/2008/04/2024 CBC/D /PLT W/ REFLE X RODRIGO TIN neutrophils (absolute) 4.1 x10e3 /uL 1.4-7. 0 normal Not Available [facility] ([facility]) [address], [place], [address], 2024 18:05:58 08/03/2008/04/2024 CBC/D /PLT W/ REFLE X RODRIGO TIN lymphs (absolute) 2.0 x10e3 /uL 0.7-3. 1 normal Not Available [facility] ([facility]) [address] [place], [address], 2024 18:05:58 08/03/20 24 08/04/2024 CBC/D /PLT W/ REFLE X RODRIGO TIN monocytes(ab solute) 0.8 x10e3 /uL 0.1-0. 9 normal Not Available [facility] ([facility]) [address] [place], [address], 2024 18:05:58 08/03/20 24 08/04/2024 CBC/D /PLT W/ REFLE X RODRIGO TIN eos (absolute) 0.4 x10e3 /uL 0.0-0. 4 normal Not Available [facility] ([facility]) [address] [place], [address], 2024 18:05:58 08/03/2008/04/2024 CBC/D /PLT W/ REFLE X RODRIGO TIN baso (absolute) 0.1 x10e3 /uL 0.0-0. 2 normal Not Available [facility] ([facility]) [address] [place], [address], 2024 18:05:58 08/03/2008/04/2024 CBC/D /PLT W/ REFLE X RODRIGO TIN immature granulocytes 0 % not estab. Not Available [facility] ([facility]) [address], [place], [address], 2024 18:05:58 08/03/2008/04/2024 CBC/D /PLT W/ REFLE X RODRIGO TIN immature grans (abs) 0.0 x10e3 /uL 0.0-0. 1 Not Available [facility] ([facility]) [address], [place], [address], 2024 18:05:58 08/03/2008/04/2024 CBC/D /PLT W/ REFLE X RODRIGO TIN NRBC [employer] Not Available [facility] ([facility]) [address], [place], [address], 2024 18:05:58 08/03/2008/04/2024 CBC/D /PLT W/ REFLE X RODRIGO TIN hematology comments: [employer] Not Available [facility] ([facility]) [address], [place], [address], 2024 18:05:58 08/03/2008/04/2024 T-SAMMY L ACTIV ATION , CD8 SUBSE TS absolute cd 3 1676 /uL 622-24 02 Not Available [facility] ([facility]) [address], [place], [address], 2024 18:05:58 08/03/2008/04/2024 T-SAMMY L ACTIV ATION , CD8 SUBSE TS % cd 3 pos. lymph. 83.8 % 57.5-8 6.2 Not Available [facility] ([facility]) [address], [place], [address], 2024 18:05:58 08/03/2008/04/2024 T-SAMMY L ACTIV ATION , CD8 SUBSE TS absolute cd 4 helper 854 /uL 359-15 19 Not Available [facility] ([facility]) [address] [place], [address], 2024 18:05:58 08/03/20 24 08/04/2024 T-SAMMY L ACTIV ATION , CD8 SUBSE TS % cd 4 pos. lymph. 42.7 % 30.8-5 8.5 Not Available [facility] ([facility]) [address] [place], [address], 2024 18:05:58 08/03/2008/04/2024 T-SAMMY L ACTIV ATION , CD8 SUBSE TS absolute cd 8 (supp) 954 /uL 109-89 7 above high normal Not Available [facility] ([facility]) [address] [place], [address], 2024 18:05:58 08/03/2008/04/2024 T-SAMMY L ACTIV ATION , CD8 SUBSE TS % cd 8 pos. lymph. 47.7 % 12.0-3 5.5 above high normal Not Available [facility] ([facility]) [address] [place], [address], 2024 18:05:58 08/03/2008/04/2024 T-SAMMY L ACTIV ATION , CD8 SUBSE TS cd4/cd8 ratio 0.90 0.92-3 .72 below low normal Not Available [facility] ([facility]) [address] [place], [address], 2024 18:05:58 08/03/2008/04/2024 T-SAMMY L ACTIV ATION , CD8 SUBSE TS abs.cd8+hla- dr+lymph 314 /uL 0-117 above high normal Not Available [facility] ([facility]) [address] [place], [address], 2024 18:05:58 08/03/2008/04/2024 T-SAMMY L ACTIV ATION , CD8 SUBSE TS % cd8+hla-dr+ lymphs 15.7 % 0.0-4. 9 above high normal Not Available [facility] ([facility]) [address], [place], [address], 2024 18:05:58 08/03/20 24 08/04/2024 T-SAMMY L ACTIV ATION , CD8 SUBSE TS % cd3+cd25+ lymphs 17.9 % 4.9-25 .9 Not Available [facility] ([facility]) [address] [place], [address], 2024 18:05:58 08/03/2008/04/2024 T-SAMMY L ACTIV ATION , CD8 SUBSE TS abs.cd3+cd25 + lymphs 358 /uL 79-535 Not Available [facility] ([facility]) [address], [place], [address], 2024 18:05:58 08/03/20 24 08/04/2024 T-SAMMY L ACTIV ATION , CD8 SUBSE TS % cd8+cd38+ lymphs 19.8 % 0.0-17 .7 above high normal Not Available [facility] ([facility]) [address] [place], [address], 2024 18:05:58 08/03/20 24 08/04/2024 T-SAMMY L ACTIV ATION , CD8 SUBSE TS abs.cd8+cd38 + lymphs 396 /uL 0-381 above high normal Not Available [facility] ([facility]) [address] [place], [address], 2024 18:05:58 08/03/20 24 08/05/2024 ELECT ROLYT E PANEL sodium 142 mmol/ L 134-14 4 normal Not Available [facility] ([facility]) [address], [place], [address], 2024 18:05:59 08/03/2008/05/2024 ELECT ROLYT E PANEL potassium 4.3 mmol/ L 3.5-5. 2 normal Not Available [facility] ([facility]) [address], [place], [address], 2024 18:05:59 08/03/2008/05/2024 ELECT ROLYT E PANEL chloride 104 mmol/ L 96-106 normal Not Available [facility] ([facility]) [address], [place], [address], 2024 18:05:59 08/03/2008/05/2024 ELECT ROLYT E PANEL carbon dioxide, total 20 mmol/ L 20-29 normal Not Available [facility] ([facility]) [address], [place], [address], 2024 18:05:59 08/03/2008/06/2024 CT NG M GENIT ALIUM BRUNO, URINE mycoplasma genitalium BRUNO Negati ve negati ve Not Available [facility] ([facility]) [address] [place], [address], 2024 18:05:59 08/03/2008/06/2024 CT NG M GENIT ALIUM BRUNO, URINE chlamydia trachomatis, BRUNO Negati ve negati ve Not Available [facility] ([facility]) [address] [place], [address], 2024 18:05:59 08/03/2008/06/2024 CT NG M GENIT ALIUM BRUNO, URINE neisseria gonorrhoeae, BRUNO Negati ve negati ve Not Available [facility] ([facility]) [address] [place], [address], 2024 18:05:59 08/03/20 24 08/05/2024 GLOM FILT RATE, ESTIM ATED creatinine 1.04 mg/dL 0.57-1 .00 above high normal Not Available [facility] ([facility]) [address], [place], [address], 2024 18:06:00 08/03/20 24 08/05/2024 GLOM FILT RATE, ESTIM ATED eGFR 62 mL/mi n/1.7 3 >59 normal Not Available [facility] ([facility]) [address], [place], [address], 2024 18:06:00 08/03/20 24 08/04/2024 RNA, REAL TIME PCR (NON- GRAPH ) HIV-1 RNA by PCR <20 copie s/mL HIV-1 RNA not detec kelton The repor table range for this assay is 20 to 10,00 0,000 copie s HIV-1 RNA/m L. Not Available [facility] ([facility]) [address], [place], [address], 2024 18:06:00 08/03/20 24 08/04/2024 RNA, REAL TIME PCR (NON- GRAPH ) log10 HIV-1 RNA COMMEN T log10 copy/ mL Unabl e to calcu late resul t since non-n umeri c resul t obtai fabi for compo nent test. Not Available [facility] ([facility]) [address], [place], [address], 2024 18:06:00 08/03/20 24 08/04/2024 RPR, RFX QN RPR/C ONFIR M TP RPR Non Reacti ve non reacti ve Not Available [facility] ([facility]) [address], [place], [address], 2024 18:06:01 08/03/20 24 2024 HCV ANTIB TIMMY hep C virus Ab COMMEN T [facility] was unabl e to colle ct suffi cient speci men to perfo rm the follo wing test( s), and is provi ding the patie nt with re-co llect ion instr uctio ns. HCV antib timmy alone does not diffe renti ate betwe en previ ously resol shantal infec tion and activ e infec tion. Equiv ocal and React ngoc HCV antib timmy resul ts shoul d be follo wed up with an HCV RNA test to suppo rt the diagn osis of activ e HCV infec tion. Not Available [facility] ([facility]) [address] [place], [address], 2024 18:06:01 08/03/20 24 08/05/2024 AST (SGOT ) AST (SGOT) 26 IU/L 0-40 normal Not Available [facility] ([facility]) [address] [place], [address], 2024 18:06:02 08/03/20 24 08/05/2024 ALT (SGPT ) ALT (SGPT) 27 IU/L 0-32 normal Not Available [facility] ([facility]) [address], [place], [address], 2024 18:06:02 08/03/[address] PROBL EM request problem COMMEN T [facility] was unabl e to colle ct suffi cient speci men to perfo rm the follo wing test( s), and is provi ding the patie nt with re-co llect ion instr uctio ns. TEST: [id number] HCV Antib timmy Not Available [facility] ([facility]) [address] [place], [address], 2024 18:06:03 01/12/20 25 01/12/2025 CBC/D /PLT W/ REFLE X RODRIGO TIN WBC 6.2 x10e3 /uL 3.4-10 .8 normal Not Available [facility] ([facility]) [address], [place], [address], 02/01/2025 18:07:12 01/12/20 25 01/12/2025 CBC/D /PLT W/ REFLE X RODRIGO TIN RBC 3.84 x10e6 /uL 3.77-5 .28 normal Not Available [facility] ([facility]) [address], [place], [address], 02/01/2025 18:07:12 01/12/20 25 01/12/2025 CBC/D /PLT W/ REFLE X RODRIGO TIN hemoglobin 14.2 g/dL 11.1-1 5.9 normal Not Available [facility] ([facility]) [address], [place], [address], 02/01/2025 18:07:12 01/12/20 25 01/12/2025 CBC/D /PLT W/ REFLE X RODRIGO TIN hematocrit 41.7 % 34.0-4 6.6 normal Not Available [facility] ([facility]) [address] [place], [address], 02/01/2025 18:07:12 01/12/20 25 01/12/2025 CBC/D /PLT W/ REFLE X RODRIGO TIN MCV 109 fL 79-97 above high normal Not Available [facility] ([facility]) [address] [place], [address], 02/01/2025 18:07:12 01/12/20 25 01/12/2025 CBC/D /PLT W/ REFLE X RODRIGO TIN MCH 37.0 pg 26.6-3 3.0 above high normal Not Available [facility] ([facility]) [address] [place], [address], 02/01/2025 18:07:12 01/12/20 25 01/12/2025 CBC/D /PLT W/ REFLE X RODRIGO TIN MCHC 34.1 g/dL 31.5-3 5.7 normal Not Available [facility] ([facility]) [address], [place], [address], 02/01/2025 18:07:12 01/12/20 25 01/12/2025 CBC/D /PLT W/ REFLE X RODRIGO TIN RDW 14.3 % 11.7-1 5.4 Not Available [facility] ([facility]) [address], [place], [address], 02/01/2025 18:07:12 01/12/20 25 01/12/2025 CBC/D /PLT W/ REFLE X RODRIGO TIN platelets 213 x10e3 /uL 150-45 0 normal Not Available [facility] ([facility]) [address], [place], [address], 02/01/2025 18:07:12 01/12/20 25 01/12/2025 CBC/D /PLT W/ REFLE X RODRIGO TIN neutrophils 54 % not estab. normal Not Available [facility] ([facility]) [address], [place], [address], 02/01/2025 18:07:12 01/12/20 25 01/12/2025 CBC/D /PLT W/ REFLE X RODRIGO TIN lymphs 27 % not estab. normal Not Available [facility] ([facility]) [address], [place], [address], 02/01/2025 18:07:12 01/12/20 25 01/12/2025 CBC/D /PLT W/ REFLE X RODRIGO TIN monocytes 13 % not estab. normal Not Available [facility] ([facility]) [address], [place], [address], 02/01/2025 18:07:12 01/12/20 25 01/12/2025 CBC/D /PLT W/ REFLE X RODRIGO TIN eos 5 % not estab. normal Not Available [facility] ([facility]) [address], [place], [address], 02/01/2025 18:07:12 01/12/20 25 01/12/2025 CBC/D /PLT W/ REFLE X RODRIGO TIN basos 1 % not estab. normal Not Available [facility] ([facility]) [address], [place], [address], 02/01/2025 18:07:12 01/12/20 25 01/12/2025 CBC/D /PLT W/ REFLE X RODRIGO TIN immature cells [employer] Not Available [facility] ([facility]) [address], [place], [address], 02/01/2025 18:07:12 01/12/20 25 01/12/2025 CBC/D /PLT W/ REFLE X RODRIGO TIN neutrophils (absolute) 3.4 x10e3 /uL 1.4-7. 0 normal Not Available [facility] ([facility]) [address] [place], [address], 02/01/2025 18:07:12 01/12/20 25 01/12/2025 CBC/D /PLT W/ REFLE X RODRIGO TIN lymphs (absolute) 1.7 x10e3 /uL 0.7-3. 1 normal Not Available [facility] ([facility]) [address], [place], [address], 02/01/2025 18:07:12 01/12/20 25 01/12/2025 CBC/D /PLT W/ REFLE X RODRIGO TIN monocytes(ab solute) 0.8 x10e3 /uL 0.1-0. 9 normal Not Available [facility] ([facility]) [address] [place], [address], 02/01/2025 18:07:12 01/12/20 25 01/12/2025 CBC/D /PLT W/ REFLE X RODRIGO TIN eos (absolute) 0.3 x10e3 /uL 0.0-0. 4 normal Not Available [facility] ([facility]) [address], [place], [address], 02/01/2025 18:07:12 01/12/20 25 01/12/2025 CBC/D /PLT W/ REFLE X RODRIGO TIN baso (absolute) 0.0 x10e3 /uL 0.0-0. 2 normal Not Available [facility] ([facility]) [address], [place], [address], 02/01/2025 18:07:12 01/12/20 25 01/12/2025 CBC/D /PLT W/ REFLE X RODRIGO TIN immature granulocytes 0 % not estab. Not Available [facility] ([facility]) [address], [place], [address], 02/01/2025 18:07:12 01/12/20 25 01/12/2025 CBC/D /PLT W/ REFLE X RODRIGO TIN immature grans (abs) 0.0 x10e3 /uL 0.0-0. 1 Not Available [facility] ([facility]) [address], [place], [address], 02/01/2025 18:07:12 01/12/20 25 01/12/2025 CBC/D /PLT W/ REFLE X RODRIGO TIN NRBC [employer] Not Available [facility] ([facility]) [address] [place], [address], 02/01/2025 18:07:12 01/12/20 25 01/12/2025 CBC/D /PLT W/ REFLE X RODRIGO TIN hematology comments: [employer] Not Available [facility] ([facility]) [address], [place], [address], 02/01/2025 18:07:12 01/12/20 25 01/16/2025 RNA PCR GRAPH RFX PRIME /ARCH HIV-1 RNA by PCR <20 copie s/mL HIV-1 RNA not detec kelton The repor table range for this assay is 20 to 10,00 0,000 copie s HIV-1 RNA/m L. Not Available [employer] [address] [place] [address], [place], [address], 02/01/2025 18:07:13 01/12/20 25 01/16/2025 RNA PCR GRAPH RFX PRIME /ARCH log10 HIV-1 RNA COMMEN T log10 copy/ mL Unabl e to calcu late resul t since non-n umeri c resul t obtai fabi for compo nent test. Not Available [facility] [address] [place] [address], [place], [address], 02/01/2025 18:07:13 01/12/20 25 01/16/2025 RNA PCR GRAPH RFX PRIME /ARCH reflex to prime or archive Commen t Refle x to GenoS ure Archi ve indic ated. Not Available [employer] [address] [place] [address], [place], [address], 02/01/2025 18:07:13 01/12/20 25 01/16/2025 RNA PCR GRAPH RFX PRIME /ARCH pdf . Not Available [employer] [address] [place] [address], [place], [address], 02/01/2025 18:07:13 01/12/2002/01/2025 RNA PCR GRAPH RFX PRIME /ARCH pdf . Not Available [employer] [address] [place] [address], [place], [address], 02/01/2025 18:07:13 01/12/2002/01/2025 RNA PCR GRAPH RFX PRIME /ARCH HIV genosure archive COMMEN T Heladio gene ampli con adequ ate for seque ncing Not Available [employer] [address] [place] [address], [place], [address], 02/01/2025 18:07:13 01/12/20 02/01/2025 RNA PCR GRAPH RFX PRIME /ARCH HIV genosure archive COMMEN T The HIV-1 GenoS ure Archi ve(R) for this speci men has been compl eted. HIV-1 Subty pe: B Drug Genot ypic Gener ic Name Brand Name Carlos wong Comme nts ----- ----- ----- ----- ----- - ----- ----- ----- --- NRTI [place] vir Ziage n Sensi tive Colette* : None Didan osine Videx Sensi tive Colette* : None Emtri citab ine Emtri va Sensi tive Colette* : None Lamiv udine Epivi r Sensi tive Colette* : None Stavu dine Zerit Sensi tive Colette* : None Tenof ovir Virea d Sensi tive Colette* : None Zidov udine Retro vir Sensi tive Colette* : None NNRTI Dorav irine Pifel tro Sensi tive Colette* : None Efavi torin Susti va Sensi tive Colette* : None Etrav irine Intel ence Sensi tive Colette* : None Nevir apine Viram une Sensi tive Colette* : None Rilpi virin e Edura nt Sensi tive Colette* : None INI Bicte gravi r Bicte gravi r Sensi tive Colette* : None [place] egrav ir [place] egrav ir Sensi tive Colette* : None Dolut egrav ir Tivic ay Sensi tive Colette* : None Elvit egrav ir Vitek ta Sensi tive Colette* : None Ralte gravi r Isent ress Sensi tive Colette* : None PI Ataza navir /r Reyat az / r Sensi tive Colette* : E35D, M36I Darun avir/ r Prezi sta / r Sensi tive Colette* : None Fosam prena vir/r Lexiv a / r Sensi tive Colette* : E35D Indin avir/ r Crixi van / r Sensi tive Colette* : M36I Lopin avir Kalet ra Sensi tive Colette* : None Nelfi navir Virac ept Sensi tive Colette* : E35D, M36I Riton avir Norvi r Sensi tive Colette* : E35D Saqui navir /r Invir ase / r Sensi tive Colette* : E35D Tipra navir /r Aptiv us / r Sensi tive Colette* : E35D, M36I *Colette = Resis tance Assoc iated Mutat ions obser shantal [place] [employer] Mutat ions Obser shantal: RT: Q102K , D121Y , K122E , D177E , R211G , A272P , V276I , K281R , T286A , G335D , F346Y , M357T , K358R , I375V , T377I , K390R , K395R , E399D , A400T IN: S17N, V113I , T124A , G163S , V234L , S283G [place]: I15V, L19I, E35D, M36I, N37D, L63P, H69C, Q92K Asses sment of drug susce ptibi lity is based upon detec kelton mutat ions and inter prete d using an advan [employer] propr ietar y algor ithm (vers ion 19). Not Available [employer] [address] [place] [address], [address], 02/01/2025 18:07:13 01/12/20 25 02/01/2025 RNA PCR GRAPH RFX PRIME /ARCH HIV genosure archive interp Commen t Inter preta tion algor ithms for riton avir- boost ed prote ase inhib itors appro priat e for the follo wing dosag es: AMP/r 600mg /100m g BID; ATV/r 300mg /100m g QD; IDV/r 800mg /200m g BID; LPV/r 400mg /100m g BID; SQV/r 1000m g/100 mg BID; TPV/r 500mg /200m g BID; and DRV/r 600mg /100m g BID. Mixtu res are indic ated by amino acids separ ated by a slash . For more infor matio n on inter preti ng this repor t, christian e visit [employer]. com or call [facility] [facility] ce at betwe en the hours of 6:30a m to 5:00p m PT Monda y throu gh Dimple y. GenoS ure Archi ve is a DNA seque ncing assay that uses next- gener ation seque ncing to alberto ze the prote ase (roblero o acids 1-99) , rever se trans cript ase (roblero o acids 1-400 ) and integ rase (roblero o acids 1-288 ) codin g regio ns deriv ed from HIV-1 cell assoc iated DNA. Subty pe is deter mined using the prote ase and rever se trans cript ase seque nce infor matio n. This test was devel oped and its perfo rmanc e germain cteri stics deter mined by [facility]. It has not been clear ed or appro shantal by the Food and Drug Admin istra tion. [employer] is a subsi diary of [employer] ratio n [employer], using the brand [employer]. The resul ts shoul d not be used as the sole crite yadira for patie nt manag ement . This docum ent conta ins priva te and confi denti al healt h infor matio n prote cted by state and [place] al law. If you have recei shantal this docum ent in error , christian e call . Not Available [employer] [address] [facility] [facility], [place], [address], 02/01/2025 18:07:13 01/12/20 25 01/12/2025 GLOM FILT RATE, ESTIM ATED creatinine 1.07 mg/dL 0.57-1 .00 above high normal Not Available [facility] ([facility]) [address], [place], [address], 02/01/2025 18:07:13 01/12/20 25 01/12/2025 GLOM FILT RATE, ESTIM ATED eGFR 59 mL/mi n/1.7 3 >59 below low normal Not Available [facility] ([facility]) [address], [place], [address], 02/01/2025 18:07:13 01/12/20 25 01/12/2025 PREP: RPR W/REF BLANCA TO TITER RPR Non Reacti ve non reacti ve Not Available [facility] ([facility]) [address], [place], [address], 02/01/2025 18:07:14 01/12/20 25 01/12/2025 AST (SGOT ) AST (SGOT) 21 IU/L 0-40 normal Not Available [facility] ([facility]) [address] [place], [address], 02/01/2025 18:07:14 01/12/20 25 01/12/2025 ALT (SGPT ) ALT (SGPT) 19 IU/L 0-32 normal Not Available [facility] ([facility]) [address] [place], [address], 02/01/2025 18:07:15 Result Notes None recorded. 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 906216153 Active 2018 Herpesvira l infection of perianal skin and rectum; snomeddesc ription: Herpesvira l infection of perianal skin and rectum; Report Immunity to Registry: Yes; Not Available [facility] 4 06:58:41 Genital herpes simplex 21904272 Active 2018 Other genital herpes; snomeddesc ription: Herpesvira l infection of perianal skin and rectum; Report Immunity to Registry: Yes; Not Available [facility] 4 06:58:41 Gastroeso phageal reflux disease 309207487 Active 2012 Esophageal reflux; snomeddesc ription: Gastroesop hageal reflux disease; Report Immunity to Registry: Yes; Gastroeso phageal reflux disease; snomeddesc ription: Gastroesop hageal reflux disease; Report Immunity to Registry: Yes; Not Available [facility] 4 06:58:41 Chronic hepatitis C 879399306 Active 2012 Chronic hepatitis C without mention of hepatic coma; snomeddesc ription: Chronic hepatitis C; Report Immunity to Registry: Yes; Notes: HCV ab pos; HCV VL Undetected 2012; 2015; 2016; 2021; Chronic hepatitis C; snomeddesc ription: Chronic hepatitis C; Report Immunity to Registry: Yes; Notes: HCV ab pos; HCV VL Undetected 2012; 2015; 2016; 2021; Not Available [facility] 4 06:58:42 Chronic type B viral hepatitis 89545328 Active 2020 Chronic type B viral hepatitis; snomeddesc ription: Chronic type B viral hepatitis; Report Immunity to Registry: Yes; Notes: s ag pos; HBV VL Undetected 2015; Viral hepatitis B without mention of hepatic coma, chronic, without mention of hepatitis delta; snomeddesc ription: Chronic type B viral hepatitis; Report Immunity to Registry: Yes; Notes: s ag pos; HBV VL Undetected 2015; Not Available [facility] 4 06:58:42 Human immunodef iciency virus infection 40743403 Active 2013 Human immunodefi ciency virus [HIV] disease; snomeddesc ription: Human immunodefi ciency virus infection; Report Immunity to Registry: Yes; Human immunodefi ciency virus infection; snomeddesc ription: Human immunodefi ciency virus infection; Report Immunity to Registry: Yes; Not Available [facility] 4 06:58:42 Problem Notes None recorded. Medical Equipment None Reported. Allergies Allergen ID Allergen Name Allergen Category Reaction Reaction Severity Criticality Documentation Date Start Date Code Code System Note Provider Name and Address Organization Details Recorded Time 499 econazole nitrate medicatio n rash Not available Not available 11/25/20232011 27258 4 RxNorm React ion: Rash and other nonsp ecifi c skin erupt ion; Comme nt: adver se_ev ent_t ype: [id number]; ; Not Available [facility] 4 06:50:31 Medications Name Sig Start Date Stop Date Status Note LastModified by Organization Details LastModified Time fluoxetin e 40 mg capsule TAKE 2 CAPSULES BY MOUTH EVERY MORNING active Not Available Not Available No t Available quetiapin e 300 mg tablet TAKE 1 TABLET BY MOUTH AT BEDTIME active Not Available Not Available No t Available Pneumovax -23 25 mcg/0.5 mL injection solution - Quantity : ; 0 refill(s ) 02/16 completed VACCINE_ IND: yes; VACCINE_ NAME: pneumoco ccal polysacc haride PPV23; SU_FULL_ NAME: Brittni Sprague chidi; Not Available Not Available Not Available fluconazo le 150 mg tablet TAKE 1 TABLET BY MOUTH 1 TIME FOR 1 DOSE active Not Available Not Available No t Available alendrona te 70 mg tablet TAKE 1 TABLET BY MOUTH EVERY WEEK active Not Available Not Available No t Available Zantac 300 mg tablet 300 mg Quantity : 30; 2 refill(s ) 06/13 completed Frequenc y: qd; VACCINE_ IND: no; SU_FULL_ NAME: Brittni Waysabas murillo; Not Available Not Available Not Available valacyclo vir 500 mg tablet TAKE 1 TABLET BY MOUTH EVERY DAY 2024 active Not Available Not Available Not Avai lable nitrofura ntoin macrocrys sawyer 100 mg capsule TAKE 1 CAPSULE BY MOUTH DAILY active Not Available Not Available No t Available buspirone 10 mg tablet TAKE 2 TABLETS BY MOUTH TWICE DAILY active Not Available Not Available No t Available Valtrex 1 gram tablet 1 g Quantity : 30; 3 refill(s ) 06/13 completed Frequenc y: qd; VACCINE_ IND: no; SU_FULL_ NAME: Brittni Sprague chidi; Not Available Not Available Not Available omeprazol e 20 mg capsule,d elayed release 20 MG Quantity : 3; Duration : 1; 0 refill(s ) 10/27 completed Duration : 1; VACCINE_ IND: no; Not Available Not Available Not Available Tears Naturale Forte 0.1 %-0.3 %-0.2 % eye drops preserve d Quantity : 1; Duration : 1; 0 refill(s ) 01/04 completed Frequenc y: qd; Duration : 1; VACCINE_ IND: no; SU_FULL_ NAME: Brittni murillo; Not Available Not Available Not Available lorazepam 1 mg tablet TAKE 1 TABLET BY MOUTH TWICE DAILY AND 2 TABLET BY MOUTH EVERY NIGHT AT BEDTIME active Not Available Not Available No t Available levofloxa swetha 750 mg tablet TAKE 1 TABLET BY MOUTH EVERY 24 HOURS FOR 4 DAYS active Not Available Not Available No t Available zolpidem 10 mg tablet TAKE 1 TABLET BY MOUTH AT BEDTIME NEEDED active Not Available Not Available No t Available buspirone 15 mg tablet 15 mg Quantity : ; 0 refill(s ) 03/12 completed VACCINE_ IND: no; Not Available Not Available Not Available Dane-Stir mucosal swab - Quantity : 60; 3 refill(s ) 01/04 completed Frequenc y: bid; VACCINE_ IND: no; SU_FULL_ NAME: Brittni murillo; Not Available Not Available Not Available solifenac in 10 mg tablet TAKE 1 TABLET BY MOUTH TWICE DAILY FOR 90 DAYS active Not Available Not Available No t Available Fosamax Plus D 70 mg-2,800 unit tablet 70 MG-2800 Quantity : 12; Duration : 84; 0 refill(s ) 02/22 completed Duration : 84; VACCINE_ IND: no; Not Available Not Available Not Available fentanyl 12 mcg/hr transderm al patch 12 MCG/ Quantity : 10; Duration : 30; 0 refill(s ) 01/05 completed Duration : 30; VACCINE_ IND: no; Not Available Not Available Not Available lorazepam Quantity : ; 0 refill(s ) 03/12 completed VACCINE_ IND: no; Not Available Not Available Not Available Seroquel Quantity : ; 0 refill(s ) 03/12 completed VACCINE_ IND: no; Not Available Not Available Not Available Atripla 600 mg-200 mg-300 mg tablet 1 TABLET ORAL at bedtime 03/12 completed Duration : 30; VACCINE_ IND: no; SU_FULL_ NAME: Brittni murillo; Not Available Not Available Not Available quetiapin e 400 mg tablet TAKE 1 TABLET BY MOUTH AT BEDTIME active Not Available Not Available No t Available PreviDent 5000 Dry Mouth 1.1 % dental paste 1.1 % Quantity : 100; Duration : 30; 0 refill(s ) 02/16 completed Duration : 30; VACCINE_ IND: no; Not Available Not Available Not Available melatonin 5 mg tablet MELATONI N 5 MG TABLET; Quantity : 30; Duration : 30; 0 refill(s ) 01/29 completed Duration : 30; VACCINE_ IND: no; Not Available Not Available Not Available Prevnar 13 (PF) 0.5 mL intramusc ular syringe - Quantity : ; 0 refill(s ) 2013 active VACCINE_ IND: yes; VACCINE_ NAME: Pneumoco ccal conjugat e PCV 13; SU_FULL_ NAME: Brittni Enriquez; Not Available Not Available Not Available Flulaval 45 mcg (15 mcg x 3)/0.5 mL intramusc ular suspensio n - Quantity : ; Duration : 30; 0 refill(s ) 07/09 completed Duration : 30; VACCINE_ IND: yes; VACCINE_ NAME: Influenz a, seasonal , injectab le; SU_FULL_ NAME: Brittni Enriquez; VIS_DATE : 04:00:00 .0; Not Available Not Available Not Available Flulaval Quantity : ; Duration : 30; 0 refill(s ) 08/16 completed Duration : 30; VACCINE_ IND: yes; SU_FULL_ NAME: Brittni Enriquez; VIS_DATE : 04:00:00 .0; Not Available Not Available Not Available Flulaval 45 mcg (15 mcg x 3)/0.5 mL intramusc ular suspensio n trivalen t Quantity : ; Duration : 30; 0 refill(s ) 09/29 completed Duration : 30; VACCINE_ IND: yes; VACCINE_ NAME: Influenz a, seasonal , injectab le; SU_FULL_ NAME: Brittni Enriquez; Not Available Not Available Not Available Triumeq 600 mg-50 mg-300 mg tablet TAKE 1 TABLET BY MOUTH EVERY DAY 2024 active Not Available Not Available Not Avai lable Fluvirin 45 mcg (15 mcg x 3)/0.5 mL intramusc ular suspensio n trivalen t Quantity : ; 0 refill(s ) 01/29 completed VACCINE_ IND: yes; VACCINE_ NAME: Influenz a, seasonal , injectab le; SU_FULL_ NAME: Brittni murillo; Not Available Not Available Not Available Shingrix (PF) 50 mcg/0.5 mL intramusc ular suspensio n, kit adjuvant ed Quantity : 1; Duration : 1; 1 refill(s ) 01/02 completed Frequenc y: x1; Duration : 1; VACCINE_ IND: no; VACCINE_ NAME: zoster recombin ant; SU_FULL_ NAME: Brittni murillo; Not Available Not Available Not Available Afluria Quad 60 mcg (15 mcg x 4)/0.5 mL IM suspensio n quadriva lent Quantity : ; 0 refill(s ) 02/22 completed VACCINE_ IND: yes; VACCINE_ NAME: influenz a, injectab le, quadriva lent; SU_FULL_ NAME: Brittni murillo; VIS_DATE : 18:24:58 .0; Not Available Not Available Not Available Vitals Date Recorded Heart rate Body temperature Body weight Oxygen saturation Oxygen saturation in Arterial blood by Pulse oximetry Systolic blood pressure Diastolic blood pressure Provider Name and Address Organization Details Last Updated DateTime 3 86 /min 97.6 [degF] 12029.7 8 g 99 % 99 % 110 mm[Hg] 80 mm[Hg] Ginette DE SANTIAGO MD [facility] 3 14:24:26 Date Recorded Heart rate Respiratory rate Body temperature Oxygen saturation Oxygen saturation in Arterial blood by Pulse oximetry Systolic blood pressure Diastolic blood pressure Provider Name and Address Organization Details Last Updated DateTime 4 74 /min 10 /min 98.2 [degF] 98 % 98 % 124 mm[Hg] 70 mm[Hg] Yulisa DE SANTIAGO MD [facility] 4 13:49:09 Date Recorded Body height Heart rate Body temperature Body mass index (BMI) Body weight Oxygen saturation Oxygen saturation in Arterial blood by Pulse oximetry Systolic blood pressure Diastolic blood pressure Provider Name and Address Organization Details Last Updated DateTime 175.26 cm 69 /min 96.2 [degF] 23.6 kg/m2 63977.7 8 g 98 % 98 % 124 mm[Hg] 70 mm[Hg] Shweta DE SANTIAGO MD [facility] 13:10:19 Social History None recorded. Functional Status Question Answer Note LastModified by Organizat ion Details LastModified Time Are you able to walk? NOCHAIR Information not available 08/13/2023 Are you able to care for yourself? No pt has a caregiver ,pt on wheelchair [email or web address] Information not available 08/13/2023 Mental Status None recorded. Family History Nothing Reported Notes:Family history unknown , Response Property: Yes; Medical History Condition Response AIDS/HIV Y Gynecological HistoryNo gynecological history recorded. Obstetrics History GPAL:G 0 P 0 0 0 0 Past Encounters Encounter ID Performer Location Encounter Start Date Encounter Closed Date Diagnosis/Indication Diagnosis SNOMED-CT Code Diagnosis ICD10 Code Diagnosis Note [id number] Brittni De Santiago MD Main Office [address] [facility] [place] [id number] 08/13/2023 14:00:50 08/13/2023 14:56:15 Human immunodeficiency virus infection 66340788 B20 HIVContinu e Triumeq 1 tab po qd. she wishes to continue same regimen. would suggest swicth of regimen if HBV becomes detected. it has been nondtected . watch for sx.strict compliance w dosing reviewed.f /u PCPquestio ns and concerns addressed Chronic hepatitis C 1283 43653 B18.2 past.HCV ab pos; HCV VL Undetected 2012; 2015; 2016; 2021 Type B vir al hepatitis 17924042 B19.10 s ag pos; HBV VL Undetected 2012; 2015HBV VL orderedHDV ABrequest CT scan abd [facility]. Genital he rpes simplex [id number] A60.9 [place] [id number] Brittni De Santiago MD Main Office [address] [facility] [place] [id number] 01/14/2024 09:05:39 01/14/2024 15:25:48 Human immunodeficiency virus infection [id number] B20 HIVContinu e Triumeq 1 tab po qd. she wishes to continue same regimen.st rict compliance w dosing reviewed.p t aware of PrePf/u PCPquestio ns and concerns addressed [id number] Brittni De Santiago MD Main Office [address] [place] [address] 05/06/2024 13:33:11 05/06/2024 14:06:01 Human immunodeficiency virus infection [id number] B20 HIVContinu e Triumeq 1 tab po qd.she wishes to continue same regimen. sheis aware of new regimens, 2 drug options, skilled nursing injectable s and clinical trials.str ict compliance w dosing reviewed.p t aware of PrePf/u PCPquestio ns and concerns addressed Recurrent urinary tract infection [id number] N39.0 recent kidney stoneson nitrofuran toin qd suppressio n tx to decrease frequency and severity of UTI.hydrat ionf/u PCP [id number] Brittni De Santiago MD Main Office [address] [place] [address] 11/03/2024 16:09:49 11/03/2024 18:47:37 Human immunodeficiency virus infection [id number] B20 HIVContinu e Triumeq 1 tab po qd.she wishes to continue same regimen. sheis aware of new regimensst rict compliance w dosing reviewed.p t aware of PrePf/u PCPquestio ns and concerns addressed Recurrent urinary tract infection [id number] N39.0 recent kidney stoneson nitrofuran toin qd suppressio n tx to decrease frequency and severity of UTI.skilled nursing of macrodanti n reviewed, in particular related to lung among other.bene fits and risks reviewedhy drationf/u PCP 69573 Brittni De Santiago MD Main Office [address] [place] [address] 01/25/2025 12:57:48 01/25/2025 20:38:34 Human immunodeficiency virus infection [id number] B20 HIVContinu e Triumeq 1 tab po qd.abacavi r data has been reviewed.s he wishes to continue same regimen. she is aware of new regimensst rict compliance w dosing reviewed.p t aware of PrePprevna r 20 prescribed .billy get lab results done at [facility] 01/2025f/u PCPquestio ns and concerns addressed Recurrent urinary tract infection [id number] N39.0 recent kidney stoneson nitrofuran toin qd suppressio n tx to decrease frequency and severity of UTI.skilled nursing of macrodanti n reviewed, in particular related to lung among other.bene fits and risks reviewedhy drationf/u PCP Chronic ty pe B viral hepatitis [id number] B18.1 HDV negativela bs Viral hepatitis C [id number] 07 B19.20 past hx.labs Health Concerns Section Related Observation LastModified by Organization Detai ls LastModified Time None Recorded Concern Status LastModified by Organization Details LastModified Time None Recorded Advance Directives Directive None Recorded Payers Encounter Date Sequence Insurance Name Policy Number Policy Vazquez Covered Member ID Vazquez Member ID Guarantor Name 08/13/2023 1 [facility] (MEDICARE REPLACEMENT/A DVANTAGE - PPO) [id number] Luana Rodriguez [id number] Luana Rodriguez 08/13/2023 2 [place] [employer] Luana Rodriguez [id number] Luana Rodriguez 01/14/2024 1 [facility] (MEDICARE REPLACEMENT/A DVANTAGE - PPO) [id number] Luana Rodriguez [id number] Luana Rodriguez 01/14/2024 2 [place] [employer] Luana Rodriguez [id number] Luana Rodriguez 05/06/2024 1 [facility] (MEDICARE REPLACEMENT/A DVANTAGE - PPO) [id number] Luana Rodriguez [id number] Luana Rodriguez 05/06/2024 2 [place] Luana Rodriguez [id number] Luana Rodriguez 11/03/2024 1 [facility] (MEDICARE REPLACEMENT/A DVANTAGE - PPO) [id number] Luana Rodriguez [id number] uLana Rodriguez 11/03/2024 2 [place] Luana Rodriguez [id number] Luana Rodriguez 01/25/2025 1 [facility] (MEDICARE REPLACEMENT/A DVANTAGE - PPO) [id number] Luana Rodriguez [id number] Luana Shirley Rodriguez 01/25/2025 2 [facility]IDA.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 denies missing dosestolerating well. no complains.She was hospitalized [facility] on June pneumonia and UTI. and w antibiotics. no COVID19. she also had a catheter change. CT scan abd shows kidney stone; underwent breakdown ok kidney stones.vaccines uptodate.06/2023 SZ4=272; HIV VL nondetceted; ALt/AST wnl; eGFR>65; treponema ab neg12/2022 HIV VL nondetected; HCV VL nondetceted; IB4=111; eGFR>70; ALT/AST wnl1 HIV VL nondetceted; HCV VL Nondetected; eGFR>60; ALT/AST wnl; CD4>600med list reviewed with patient. no changes. no new supplementsno HSV exacerbation. 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 no weight changesno jaundiceno n/v/d. Brittni De Santiago MD [address] [place] [address], [phone], 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 denies missing dosestolerating well. no complains.vaccines uptodate.12/2023 HIV VL nondetcted; QL1=690; HBV nondtected; no hepatitis C nondetected; no syphillis; eGFR=60;AST/ALT wnl06/2023 TN9=568; HIV VL nondetceted; ALt/AST wnl; eGFR>65; treponema ab neg12/2022 HIV VL nondetected; HCV VL nondetceted; WH2=676; eGFR>70; ALT/AST wnl1 HIV VL nondetceted; HCV VL Nondetected; eGFR>60; ALT/AST wnl; CD4>600med list reviewed with patient. no changes. 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 no weight changesno jaundiceno n/v/d. 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 denies missing dosestolerating well. no complains.04/2024 HIV VLNondetected; KR8=346; AST 3-; eGFR 61;12/2023 HIV VL nondetcted; VZ0=798; HBV VL nondtected; hepatitis C nondetected; no syphillis; eGFR=60;AST/ALT wnl ; F0; no HDV06/2023 BX4=531; HIV VL nondetceted; ALt/AST wnl; eGFR>65; treponema ab negwas Hospitalized April 2024 with UTI,kidney stones x 4, bacteremia; recovered; underwent lithotripsyno fever. no weight changesno jaundiceno n/v/d. Brittni De Santiago MD [address] [place] [address], [phone], SHABBIR DE SANTIAGO MD [facility] 05/06/2024 14:16:45 5 text/html f/u HIVon Triumeq 1 tab po qd.compliant. denies missing dosestolerating well. no complains.irving illness since she was last seenlabs reviewed.07/2024 HIV vL nondetceted; CD4 =854; AST/ALT wnl; pSUC=108 HIV VLNondetected; IC2=732; AST 3-; eGFR 61;12/2023 HIV VL nondetcted; WV1=402; HBV VL nondtected; hepatitis C nondetected; no syphillis; eGFR=60;AST/ALT wnl ; F0; no HDV06/2023 QO1=483; HIV VL nondetceted; ALt/AST wnl; eGFR>65; treponema ab negon macrodantin suppression tx for UTI. no UTI since last year.vaccines uptodate.no fever. no weight changesno jaundiceno n/v/ Brittni De Santiago MD [address] [place] [address], [phone], SHABBIR DE SANTIAGO MD [facility] 11/03/2024 16:23:52 5 text/html f/u HIVon Triumeq 1 tab po qd.compliant. denies missing dosesprefers not to switch regimen; she is aware of new regimens and injectables availabilitytolerating well. no complains.labs reviewed.on macrodantin suppression tx for UTI. no UTI since last year. has not been sick since she was last seennot sexuall activeno fever. no weight changesno jaundiceno n/v/shama had labs drawn 2 weeks ago; results not sent to office by lab 07/2024 HIV vL nondetceted; CD4 =854; AST/ALT wnl; pEZC=573 HIV VLNondetected; FT2=523; AST 3-; eGFR 61;12/2023 HIV VL nondetcted; MJ6=542; HBV VL nondtected; hepatitis C nondetected; no syphillis; eGFR=60;AST/ALT wnl ; F0; no HDV06/2023 TA2=972; HIV VL nondetceted; ALt/AST wnl; eGFR>65; treponema ab neg Brittni De Santiago MD [address] [place] [address], [phone], [place] SHABBIR DE SANTIAGO MD [facility] 01/25/2025 13:47:55 OBGyn Episode No OBEpisode recorded.
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
[2025-02-15 14:31] VITALS: BP 126/84; PULSE 72; RESP 12; O2SAT 98
== END 2025-02-15 15:11 | disposition home or self-care (01) ==
LOC: HO.HMCFM 14:19
PROVIDERS: PCP Student in an Organized Health Care Education/Training Program; Visit Provider Physician Assistant
DX: N31.9 Neuromuscular dysfunction of bladder, unspecified (principal); B20 Human immunodeficiency virus [HIV] disease; N20.0 Calculus of kidney; G82.50 Quadriplegia, unspecified; F43.10 Post-traumatic stress disorder, unspecified

== ENCOUNTER → 2025-02-15 14:18 | Outpatient (BNVA) | payer MEDICARE, MEDICAID, SELFPAY | PROVIDERS: PCP Student in an Organized Health Care Education/Training Program; Visit Provider Physician Assistant | DX: N31.9 Neuromuscular dysfunction of bladder, unspecified (principal); B20 Human immunodeficiency virus [HIV] disease; N20.0 Calculus of kidney; G82.50 Quadriplegia, unspecified; F43.10 Post-traumatic stress disorder, unspecified | CPT/HCPCS: 96127; 99212 ==

== ENCOUNTER → 2025-02-28 14:22 | Outpatient (BNVA) | payer MEDICARE, MEDICAID, SELFPAY | PROVIDERS: PCP Physician Assistant; Visit Provider Urology | DX: N31.9 Neuromuscular dysfunction of bladder, unspecified (principal) | CPT/HCPCS: 51705 ==

== ENCOUNTER → 2025-03-30 14:52 | Outpatient (BNVA) | payer MEDICARE, MEDICAID, SELFPAY | PROVIDERS: PCP Physician Assistant; Visit Provider Urology | DX: Z46.6 Encounter for fitting and adjustment of urinary device (principal); N31.9 Neuromuscular dysfunction of bladder, unspecified | CPT/HCPCS: 51705 ==

== ENCOUNTER → 2025-04-27 14:43 | Outpatient (BNVA) | payer MEDICARE, MEDICAID, SELFPAY | PROVIDERS: PCP Physician Assistant; Visit Provider Urology | DX: Z46.6 Encounter for fitting and adjustment of urinary device (principal); N31.9 Neuromuscular dysfunction of bladder, unspecified | CPT/HCPCS: 51705 ==

== ENCOUNTER → 2025-05-25 14:57 | Outpatient (BNVA) | payer MEDICARE, MEDICAID, SELFPAY | PROVIDERS: PCP Physician Assistant; Visit Provider Urology | DX: Z46.6 Encounter for fitting and adjustment of urinary device (principal); N31.9 Neuromuscular dysfunction of bladder, unspecified | CPT/HCPCS: 51705 ==

== ENCOUNTER → 2025-06-29 14:56 | Outpatient (BNVA) | payer MEDICARE, MEDICAID, SELFPAY | PROVIDERS: PCP Physician Assistant; Visit Provider Urology | DX: Z46.6 Encounter for fitting and adjustment of urinary device (principal); R31.9 Hematuria, unspecified; Z93.50 Unspecified cystostomy status | CPT/HCPCS: 51705 ==

== ENCOUNTER 2025-07-13 14:57 | Outpatient (AMB) | payer MEDICARE, MEDICAID, SELFPAY ==
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
[2025-07-13 15:02] VITALS: BP 112/64; PULSE 78; RESP 14; O2SAT 98
== END 2025-07-13 15:24 | disposition home or self-care (01) ==
LOC: HO.HMCFM 14:58
PROVIDERS: PCP Physician Assistant; Visit Provider Physician Assistant
DX: F43.10 Post-traumatic stress disorder, unspecified (principal); N31.9 Neuromuscular dysfunction of bladder, unspecified; G82.50 Quadriplegia, unspecified; Z23 Encounter for immunization

== ENCOUNTER → 2025-07-13 14:57 | Outpatient (BNVA) | payer MEDICARE, MEDICAID, SELFPAY | PROVIDERS: PCP Physician Assistant; Visit Provider Physician Assistant | DX: B20 Human immunodeficiency virus [HIV] disease (principal); N31.9 Neuromuscular dysfunction of bladder, unspecified; F43.10 Post-traumatic stress disorder, unspecified; G82.50 Quadriplegia, unspecified; Z23 Encounter for immunization | CPT/HCPCS: 90471; 90656; 99212 ==

== ENCOUNTER → 2025-07-27 14:58 | Outpatient (BNVA) | payer MEDICARE, MEDICAID, SELFPAY | PROVIDERS: PCP Physician Assistant; Visit Provider Urology | DX: Z46.6 Encounter for fitting and adjustment of urinary device (principal); N31.9 Neuromuscular dysfunction of bladder, unspecified; Z93.50 Unspecified cystostomy status | CPT/HCPCS: 51705 ==

== ENCOUNTER 2025-08-23 14:39 | Outpatient (AMB) | payer MEDICARE, MEDICAID, SELFPAY ==
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
--- OUTSIDE RECORDS SUMMARY | 2025-08-24 03:12 | XMS_ITS | Data Portability ---
Author Organization [place] - BRITTNI MURILLO MD [facility], Main Office Address [address] [place] [address] Care Team Providers Care Senior It Assistant Name Role Phone DEEDEE PIERSON Primary Care Provider Assessment Encounter Date Assessment Date Assessment LastModified by Organization Details LastModified Time 01/14/2024 01/14/2024 Telemedicine. AUDIO. 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 pt home [place] w [place], partner. . office in [place]. Doximity. 18 min. cmartorell Not available 11/03/2024 16:22:48 Plan of Treatment Reminders Order Date Submit Date Provider Last Modified By Organization Details Last Modified Time Details Appointments B20 FOLLOW UP 2024 02:00P Yulisa De Santiago MD Not available Not available Not available Lab CBC w/ diff 2024 025 [email or web address] [facility] (Centralized Electronic Ordering - All Locations), Patient Can Go To The Location Of Their Choice, 05/18/2025 10:59:48 cd4 T-cells, blood 2024 025 [email or web address] [facility] (Centralized Electronic Ordering - All Locations), Patient Can Go To The Location Of Their Choice, 05/18/2025 10:59:49 Hepatitis B virus, DNA, quant, viral load, PCR, serum or plasma 2024 025 [email or web address] [facility] (Centralized Electronic Ordering - All Locations), Patient Can Go To The Location Of Their Choice, 05/18/2025 10:59:49 hepatitis C liver status biomarker panel, serum 2024 025 [email or web address] [facility] (Centralized Electronic Ordering - All Locations), Patient Can Go To The Location Of Their Choice, 05/18/2025 10:59:49 CMP, serum or plasma 2024 025 [email or web address] [facility] (Centralized Electronic Ordering - All Locations), Patient Can Go To The Location Of Their Choice, 05/18/2025 10:59:49 HIV-1 RNA, quantitat ngoc, PCR, serum or plasma 2024 025 [email or web address] [facility] (Centralized Electronic Ordering - All Locations), Patient Can Go To The Location Of Their Choice, 05/18/2025 10:59:49 Hepatitis B virus, DNA, quant, viral load, [...] The Location Of Their Choice, 11/10/2024 11:11:18 HIV-1 RNA, quantitat ngoc, PCR, serum or plasma 2024 025 [email or web address] [facility] (Centralized Electronic Ordering - All Locations), Patient Can Go To The Location Of Their Choice, 11/10/2024 11:11:18 RPR (rapid plasma reagin), serum 2024 025 [email or web address] [facility] (Centralized Electronic Ordering - All Locations), Patient Can Go To The Location Of Their Choice, [id number] 11/10/2024 11:11:18 cd4 T-cells, blood 2024 025 [email or web address] [facility] (Centralized Electronic Ordering - All Locations), Patient Can Go To The Location Of Their Choice, [id number] 11/10/2024 11:11:18 hepatitis C virus RNA, quant, PCR, serum or plasma 2024 025 [email or web address] [facility] (Centralized Electronic Ordering - All Locations), Patient Can Go To The Location Of Their Choice, [id number] 11/10/2024 11:11:19 bacterial vaginosis + vaginitis panel, vaginal 2023 024 [email or web address] [facility] (Centralized Electronic Ordering - All Locations), Patient Can Go To The Location Of Their Choice, [id number] 05/13/2024 10:51:29 Referral None recorded. Procedures None recorded. Surgeries None recorded. Imaging None recorded. Medication Orders Peridex 0.12 % mouthwash 2024 025 [id number], [address], [place], [id number], 05/11/2025 14:39:03 Triumeq 600 mg-50 mg-300 mg tablet 2024 025 [id number], [address], [place], [id number], 05/11/2025 14:37:43 Patient TargetsNo targets recorded. Patient InstructionsNo instructions recorded. Reason for Referral None Reported. Results Created Date Observation Date Name Description Value Unit Range Abnormal Flag Note LastModifiedBy Organization Detail LastModifiedTime 12/30/1912/30/2023 CBC WITH AUTO DIFF WBC 5.2 x10-3 /uL 4.8-10 .8 Not Available [facility] [address] [place] [address], [address], 12/30/2023 15:19:04 12/30/1912/30/2023 CBC WITH AUTO DIFF RBC 3.7 x10-6 /uL 3.8-4. 8 low Not Available [facility] [address] [place], [address], 12/30/2023 15:19:04 12/30/19 24 12/30/2023 CBC WITH AUTO DIFF hemoglobin 13.8 g/dL 11.5-1 6.0 Not Available [facility] [address] [place], [address], 12/30/2023 15:19:04 12/30/19 24 12/30/2023 CBC WITH AUTO DIFF hematocrit 40.2 % 35-47 Not Available [facility] [address] [place], [address], 12/30/2023 15:19:04 12/30/19 24 12/30/2023 CBC WITH AUTO DIFF MCV 108.6 fL 79-98 high Not Available [facility] [address] [place], [address], 12/30/2023 15:19:04 12/30/19 24 12/30/2023 CBC WITH AUTO DIFF MCH 37.3 pg 27-32 high Not Available [facility] [address] [place], [address], 12/30/2023 15:19:04 12/30/19 24 12/30/2023 CBC WITH AUTO DIFF MCHC 34.3 g/dL 32-37 Not Available [facility] [address] [place], [address], 12/30/2023 15:19:04 12/30/19 24 12/30/2023 CBC WITH AUTO DIFF RDW 15.9 % 11-15 high Not Available [facility] [address] [place], [address], 12/30/2023 15:19:04 12/30/19 24 12/30/2023 CBC WITH AUTO DIFF plt count 187 x10-3 /uL 130-40 0 Not Available [facility] [address] [place], [address], 12/30/2023 15:19:04 12/30/19 24 12/30/2023 CBC WITH AUTO DIFF mean platelet volume 10.5 fL 7-11 Not Available [facility] [address] [place], [address], 12/30/2023 15:19:04 12/30/19 24 12/30/2023 CBC WITH AUTO DIFF NRBC % auto 0.0 % <1 Not Available [facility] [address] [place], [address], 12/30/2023 15:19:04 12/30/19 24 12/30/2023 CBC WITH AUTO DIFF neut % 49.6 % Not Available [facility] [address] [place], [address], 12/30/2023 15:19:04 12/30/19 24 12/30/2023 CBC WITH AUTO DIFF lymph % 30.1 % Not Available [facility] [address] [place], [address], 12/30/2023 15:19:04 12/30/19 24 12/30/2023 CBC WITH AUTO DIFF mono % 13.3 % Not Available [facility] [address] [place], [address], 12/30/2023 15:19:04 12/30/19 24 12/30/2023 CBC WITH AUTO DIFF eos % 5.8 % Not Available [facility] [address] [place], [address], 12/30/2023 15:19:04 12/30/19 24 12/30/2023 CBC WITH AUTO DIFF baso % 1.0 % Not Available [facility] [address] [place], [address], 12/30/2023 15:19:04 12/30/19 24 12/30/2023 CBC WITH AUTO DIFF immature granulocytes % 0.2 % Not Available [facility] [address] [place], [address], 12/30/2023 15:19:04 12/30/19 24 12/30/2023 CBC WITH AUTO DIFF NRBC # auto 0.00 x10-3 /uL <0.1 Not Available [facility] [address] [place] [address], [address], 12/30/2023 15:19:04 12/30/19 24 12/30/2023 CBC WITH AUTO DIFF absolute neut 2.58 x10-3 /uL 1.5-7. 0 Not Available [facility] [address] [place] [address], [address], 12/30/2023 15:19:04 12/30/19 24 12/30/2023 CBC WITH AUTO DIFF lymph # 1.56 x10-3 /uL 1-5.0 Not Available [facility] [address] [place] [address], [address], 12/30/2023 15:19:04 12/30/19 24 12/30/2023 CBC WITH AUTO DIFF mono # 0.69 x10-3 /uL 0.2-1. 0 Not Available [facility] [address] [place] [address], [address], 12/30/2023 15:19:04 12/30/19 24 12/30/2023 CBC WITH AUTO DIFF eos # 0.30 x10-3 /uL 0-0.5 Not Available [facility] [address] [place] [address], [address], 12/30/2023 15:19:04 12/30/19 24 12/30/2023 CBC WITH AUTO DIFF baso # 0.05 x10-3 /uL 0-0.2 Not Available [facility] [address] [place] [address], [address], 12/30/2023 15:19:04 12/30/19 24 12/30/2023 CBC WITH AUTO DIFF immature granulocytes # 0.01 x10-3 /uL 0-0.03 Not Available [facility] [address] [place] [address], [address], 12/30/2023 15:19:04 12/30/19 24 12/30/2023 CBC WITH AUTO DIFF performing lab Perfor more [facility], [facility] [address] [facility] [place] [address] Medic al Direc cortez ortiz MD Not Available [facility] [address] [place], [address], 12/30/2023 15:19:04 12/30/19 24 12/30/2023 CREAT ININE WITH GFR creat 0.96 mg/dL 0.5-1. 1 Not Available [facility] [address] [place], [address], 12/30/2023 18:31:29 12/30/19 24 12/30/2023 CREAT ININE WITH GFR glomerular filtration rate 68 >60 This eGFR resul t was calcu lated using the CKD-E PI 2020 Creat inine Equat ion Not Available [facility] [address] [place], [address], 12/30/2023 18:31:29 12/30/19 24 12/30/2023 ELECT ROLYT ES sodium 143 mEq/L 135-14 5 Not Available [facility] [address] [place], [address], 12/30/2023 18:31:30 12/30/19 24 12/30/2023 ELECT ROLYT ES potassium 4.1 mmol/ L 3.5-5. 5 Not Available [facility] [address] [place], [address], 12/30/2023 18:31:30 12/30/19 24 12/30/2023 ELECT ROLYT ES chloride 109 mmol/ L 96-110 Not Available [facility] [address] [place], [address], 12/30/2023 18:31:30 12/30/19 24 12/30/2023 ELECT ROLYT ES CO2 26 mmol/ L 21-32 Not Available [facility] [address] [place], [address], 12/30/2023 18:31:30 12/30/19 24 12/30/2023 ELECT ROLYT ES anion gap 8 3-11 Not Available [facility] [address] [place] [address], [address], 12/30/2023 18:31:30 12/30/19 24 12/30/2023 SGOT SGOT 22 U/L 10-42 Not Available [facility] [address] [place] [address], [address], 12/30/2023 18:31:30 12/30/19 24 12/30/2023 SGPT SGPT 33 U/L 10-60 Not Available [facility] [address] [place] [address], [address], 12/30/2023 18:31:31 12/30/19 24 12/30/2023 SGPT performing lab Perfor more Lab [facility] [address] [place] [address] Medic al Direc cortez ortiz MD Not Available [facility] [address] [place] [address], [address], 12/30/2023 18:31:31 12/30/19 24 12/30/2023 TREPO NEMAL AB treponemal Ab NEGATI VE negati ve Not Available [facility] [address] [place] [address], [address], 12/30/2023 18:50:29 12/30/19 24 12/30/2023 TREPO NEMAL AB performing lab Perfor more Lab [facility], [facility] [address] [place] [address] Medic al Direpetey ortiz MD Not Available [facility] [address] [place] [address], [address], 12/30/2023 18:50:29 12/30/19 24 12/31/2023 HCV VIRAL LOAD HCV viral load qual NOT DETECT ED not detect . HCV RNA not detec kelton, unabl e to repor t quant itati ve resul ts Not Available [facility] [address] [place] [address], [address], 12/31/2023 13:44:09 12/30/19 24 12/31/2023 HIV VIRAL LOAD HIV viral load qual NOT DETECT ED not detect . HIV RNA not detec kelton, unabl e to repor t quant itati ve resul ts Not Available [facility] [address] [place] [address], [address], 12/31/2023 13:44:10 12/30/19 24 12/31/2023 HIV VIRAL LOAD performing lab Perfor more Lab [facility], [facility] Of [address] [place] [address] Medic al Dire cortez ortiz MD Not Available [facility] [address] [place] [address], [address], 12/31/2023 13:44:10 12/30/19 24 01/01/2024 T4T8 PANEL percent cd3 92 % 55-86 high Not Available [facility] [address] [place] [address], [address], 01/01/2024 14:23:21 12/30/19 24 01/01/2024 T4T8 PANEL absolute cd3 1492 cell/ uL 704-21 38 Not Available [facility] [address] [place] [address], [address], 01/01/2024 14:23:21 12/30/19 24 01/01/2024 T4T8 PANEL percent cd8 45 % 9-37 high Not Available [facility] [address] [place] [address], [address], 01/01/2024 14:23:21 12/30/19 24 01/01/2024 T4T8 PANEL absolute cd8 723 cell/ uL 190-83 2 Not Available [facility] [address] [place] [address], [address], 01/01/2024 14:23:21 12/30/19 24 01/01/2024 T4T8 PANEL percent cd4 47 % 35-66 Not Available [facility] [address] [place] [address], [address], 01/01/2024 14:23:21 12/30/19 24 01/01/2024 T4T8 PANEL absolute cd4 766 cell/ uL 443-14 71 Not Available [facility] [address] [place] [address], [address], 01/01/2024 14:23:21 12/30/19 24 01/01/2024 T4T8 PANEL percent cd19 2.0 % 4-25 low Not Available [facility] [address] [place] [address], [address], 01/01/2024 14:23:21 12/30/19 24 01/01/2024 T4T8 PANEL absolute cd19 37 cell/ uL 100-52 4 low Not Available [facility] [address] [place] [address], [address], 01/01/2024 14:23:21 12/30/19 24 01/01/2024 T4T8 PANEL cd4 cd8 ratio 1.1 1.0-3. 7 Test perfo rmed at [facility] , [address], [place] [address] [phone] Not Available [facility] [address] [place] [address], [address], 01/01/2024 14:23:21 12/30/19 24 01/01/2024 T4T8 PANEL percent cd56 5.0 % 3-24 Not Available [facility] [address] [place] [address], [address], 01/01/2024 14:23:21 12/30/19 24 01/01/2024 T4T8 PANEL absolute cd56 82 cell/ uL 60-500 Not Available [facility] [address] [place] [address], [address], 01/01/2024 14:23:21 12/30/19 24 12/31/2023 HCV VIRAL LOAD HCV viral load qual NOT DETECT ED not detect . HCV RNA not detec kelton, unabl e to repor t quant itati ve resul ts Not Available [facility] [address] [place] [address], [address], 01/01/2024 14:23:21 12/30/19 24 01/04/2024 HEPAT ITIS B VIRAL DNA QUANT HBV DNA Not detect ed not detect ed Not Available [facility] [address] [place], [address], 01/04/2024 11:16:48 12/30/19 24 01/04/2024 HEPAT ITIS B VIRAL DNA QUANT HBV-DNA <10 IU/mL <10 Not Available [facility] [address] [place], [address], 01/04/2024 11:16:48 12/30/19 24 01/04/2024 HEPAT ITIS B VIRAL DNA QUANT HBV log IU per mL <1.00 <1.00 Resul t Units : Log (10) IU/mL This proce dure utili zes a real- time polym erase chain react ion test from [facility]. The ampli ficat ion targe t is [...] out infec tion. Test perfo rmed at [facility] , [address], [place] [address] [phone] Sara dominguez MD, PhD - Medic al Direc tor Not Available [facility] [address] [place] [address], [address], 01/04/2024 11:16:48 12/30/19 24 01/04/2024 HEPAT ITIS B VIRAL DNA QUANT performing lab Perfor more Lab [facility], [facility] [address] [place] [address] Medic al Direc cortez ortiz MD Not Available [facility] [address] [place], [address], 01/04/2024 11:16:48 12/30/19 24 01/04/2024 HEPAT ITIS [...] e germain cteri stics deter mined by [employer]. It has not been clear ed or appro shantal by the [place] Food and Drug Admin istra tion. This test was perfo rmed in a CLIA certi fied labor [facility] and is inten ded for clini erlinda purpo ses. Perfo rmed By: [employer] [address] [place] [address] Qubole Direc tor: Danielle harper MD, PhD [place] Numbe r: [id number] Not Available [facility] [address] [place], [address], 01/04/2024 16:38:18 12/30/19 24 01/04/2024 HEPAT ITIS DELTA ANITI BODY performing lab Perfor more Lab [facility] basilio, a mem[facility] r of [facility] [address] [facility] [place] [address] Medic al Direc cortez ortiz MD Not Available [facility] [address] [place], [address], 01/04/2024 16:38:18 12/30/19 24 01/04/2024 HEPAT ITIS [...] e germain cteri stics deter mined by [employer] atori es. It has not been clear ed or appro shantal by the US Food and Drug Admin istra tion. This test was perfo rmed in a CLIA certi fied labor atory and is inten ded for clini erlinda purpo ses. Perfo rmed By: [employer] atori es [address] [place] [address] Labor atory Direc tor: Danielle harper MD, PhD CLIA Numbe r: [id number] Not Available [facility] [address] [place], [address], 01/08/2024 16:41:16 12/30/19 24 01/08/2024 LIVER FIBRO SIS PANEL sdfbt-0-fkpn oglobulin 278 mg/dL 106-27 9 Not Available [facility] [address] [place], [address], 01/08/2024 16:41:16 12/30/19 24 01/08/2024 LIVER FIBRO SIS PANEL haptoglobin 168 mg/dL 43-212 Not Available [facility] [address] [place], [address], 01/08/2024 16:41:16 12/30/19 24 01/08/2024 LIVER FIBRO SIS PANEL apolipoprote in A1 196 mg/dL 101-19 8 Not Available [facility] [address] [place], [address], 01/08/2024 16:41:16 12/30/19 24 01/08/2024 LIVER FIBRO SIS PANEL total bilirubin 0.3 mg/dL 0.2-1. 2 Not Available [facility] [address] [place], [address], 01/08/2024 16:41:16 12/30/19 24 01/08/2024 LIVER FIBRO SIS PANEL gamma glutamyl transpeptida se 23 U/L 3-65 Not Available [facility] [address] [place], [address], 01/08/2024 16:41:16 12/30/19 24 01/08/2024 LIVER FIBRO SIS PANEL alanine aminotransfe rase (ALT) 19 U/L 6-29 Not Available [facility] [address] [place] [address], [address], 01/08/2024 16:41:16 12/30/19 24 01/08/2024 LIVER FIBRO SIS PANEL liver fibrosis score 0.13 Not Available [facility] [address] [place] [address], [address], 01/08/2024 16:41:16 12/30/19 24 01/08/2024 LIVER FIBRO SIS PANEL liver fibrosis stage F0 Not Available [facility] [address] [place] [address], [address], 01/08/2024 16:41:16 12/30/19 24 01/08/2024 LIVER FIBRO [...] re fibro sis) Not Available [facility] [address] [place] [address], [address], 01/08/2024 16:41:16 12/30/19 24 01/08/2024 LIVER FIBRO SIS PANEL necroinflamm atory act score 0.06 Not Available [facility] [address] [place] [address], [address], 01/08/2024 16:41:16 12/30/19 24 01/08/2024 LIVER FIBRO SIS PANEL necroinflamm atory act grade A0 Not Available [facility] [address] [place], [address], 01/08/2024 16:41:16 12/30/19 24 01/08/2024 LIVER FIBRO [...] re activ ity) Not Available [facility] [address] [place] [address], [address], 01/08/2024 16:41:16 12/30/19 24 01/08/2024 LIVER FIBRO SIS PANEL liver fibrosis reference id [id number] 1 Not Available [facility] [address] [place] [address], [address], 01/08/2024 16:41:16 12/30/19 24 01/08/2024 LIVER FIBRO [...] The advic e of a speci alist shodianne d be sough t for inter preta tion in chron ic hemol ysis and Gilbe rt's syndr ome. The test inter preta tion is not valid ated in liver trans plant patie nts. Shoshoni kelton extre me value s of one of the compo nents shoul d lead to cauti on in inter [...] by [facility], [facility] . It has not been clear ed or appro shantla by the U.S. Food and Drug Admin istra tion. Perfo rmanc e germain cteri stics refer to the alberto tical perfo rmanc e of the test. [facility] , [facility], the assoc iated logo, [facility] and all assoc iated [facility] [employer]ura are the laila tered trade bangura of [facility]. All third alliance party bangura - (R) and (TM) - are the prope rty of their respe ctive vp information technology s. (C) 1999- 2013 [facility] [employer] porat ed. All right s reser shantal. Test Perfo rmed at: [facility] [address] [place] [facility] [place] [address] Christine rivera MD, PhD, SALTY Not Available [address], [place], [address], 01/08/2024 16:41:16 12/30/19 24 01/08/2024 LIVER FIBRO SIS PANEL performing lab Perfor more Lab [facility], [facility] [address] [facility] [place] [address] Medic al Direc cortez ortiz MD Not Available [facility] [address] [facility] [place], [place], [address], 01/08/2024 16:41:16 04/28/20 24 04/29/2024 T-SAMMY L ACTIV ATION , CD8 SUBSE TS absolute cd 3 1693 /uL 622-24 02 Not Available [facility] ([facility]) [address] [place], [address], 05/02/2024 18:05:54 04/28/20 24 04/29/2024 T-SAMMY L ACTIV ATION , CD8 SUBSE TS % cd 3 pos. lymph. 89.1 % 57.5-8 6.2 above high normal Not Available [facility] ([facility]] [facility]) [address] [place], [address], 05/02/2024 18:05:54 04/28/20 24 04/29/2024 T-SAMMY L ACTIV ATION , CD8 SUBSE TS abs.cd8+hla- dr+lymph 319 /uL 0-117 above high normal This test was devel oped and its perfo rmanc e germain cteri stics deter mined by [employer]. It has not been clear ed or appro shantal by the Food and Drug Admin istra tion. Not Available [facility] ([facility]) [address] [place], [address], 05/02/2024 18:05:54 04/28/20 24 04/29/2024 T-SAMMY L ACTIV ATION , CD8 SUBSE TS % cd8+hla-dr+ lymphs 16.8 % 0.0-4. 9 above high normal This test was devel oped and its perfo rmanc e germain cteri stics deter mined by [employer]. It has not been clear ed or appro shantal by the Food and Drug Admin istra tion. Not Available [facility] ([facility]) [address] [place], [address], 05/02/2024 18:05:54 04/28/20 24 04/29/2024 T-SAMMY L ACTIV ATION , CD8 SUBSE TS % cd3+cd25+ lymphs 21.7 % 4.9-25 .9 This test was devel oped and its perfo rmanc e germain cteri stics deter mined by [employer] [facility]. It has not been clear ed or appro shantal by the Food and Drug Admin istra tion. Not Available [facility] ([facility]) [address], [place], [address], 05/02/2024 18:05:54 04/28/20 24 04/29/2024 T-SAMMY L ACTIV ATION , CD8 SUBSE TS abs.cd3+cd25 + lymphs 412 /uL 79-535 This test was devel oped and its perfo rmanc e germain cteri stics deter mined by [employer] [facility]. It has not been clear ed or appro shantal by the Food and Drug Admin istra tion. Not Available [facility] ([facility]) [address], [place], [address], 05/02/2024 18:05:54 04/28/20 24 04/29/2024 T-SAMMY L ACTIV ATION , CD8 SUBSE TS % cd8+cd38+ lymphs 25.6 % 0.0-17 .7 above high normal This test was devel oped and its perfo rmanc e germain cteri stics deter mined by [employer]. It has not been clear ed or appro shantal by the Food and Drug Admin istra tion. Not Available [facility] ([facility]) [address] [place], [address], 05/02/2024 18:05:54 04/28/20 24 04/29/2024 T-SAMMY L ACTIV ATION , CD8 SUBSE TS abs.cd8+cd38 + lymphs 486 /uL 0-381 above high normal This test was juwan swartz and its perfo rmanc e germain cteri stics deter mined by [facility]. It has not been clear ed or appro shantal by the Food and Drug Admin istra tion. Not Available [facility] ([facility]) [address] [place], [address], 05/02/2024 18:05:54 04/28/20 24 04/29/2024 T-SAMMY L ACTIV ATION , CD8 SUBSE TS WBC 6.7 x10e3 /uL 3.4-10 .8 normal Not Available [facility] ([facility]) [address] [place], [address], 05/02/2024 18:05:54 04/28/20 24 04/29/2024 T-SAMMY L ACTIV ATION , CD8 SUBSE TS RBC 3.19 x10e6 /uL 3.77-5 .28 below low normal Not Available [facility] ([facility]) [address] [place], [address], 05/02/2024 18:05:54 04/28/20 24 04/29/2024 T-SAMMY L ACTIV ATION , CD8 SUBSE TS hemoglobin 11.9 g/dL 11.1-1 5.9 normal Not Available [facility] ([facility]) [address] [place], [address], 05/02/2024 18:05:54 04/28/20 24 04/29/2024 T-SAMMY L ACTIV ATION , CD8 SUBSE TS hematocrit 35.3 % 34.0-4 6.6 normal Not Available [facility] ([facility]) [address] [place], [address], 05/02/2024 18:05:54 04/28/20 24 04/29/2024 T-SAMMY L ACTIV ATION , CD8 SUBSE TS MCV 111 fL 79-97 above high normal Not Available [facility] ([facility]) [address] [facility] [place], [address], 05/02/2024 18:05:54 04/28/20 24 04/29/2024 T-SAMMY L ACTIV ATION , CD8 SUBSE TS MCH 37.3 pg 26.6-3 3.0 above high normal Not Available [facility] ([facility]) [address], [place], [address], 05/02/2024 18:05:54 04/28/20 24 04/29/2024 T-SAMMY L ACTIV ATION , CD8 SUBSE TS MCHC 33.7 g/dL 31.5-3 5.7 normal Not Available [facility] ([facility]) [address], [place], [address], 05/02/2024 18:05:54 04/28/20 24 04/29/2024 T-SAMMY L ACTIV ATION , CD8 SUBSE TS RDW 13.7 % 11.7-1 5.4 Not Available [facility] ([facility]) [address], [place], [address], 05/02/2024 18:05:54 04/28/20 24 04/29/2024 T-SAMMY L ACTIV ATION , CD8 SUBSE TS platelets 209 x10e3 /uL 150-45 0 normal Not Available [facility] ([facility]) [address] [place], [address], 05/02/2024 18:05:54 04/28/20 24 04/29/2024 T-SAMMY L ACTIV ATION , CD8 SUBSE TS neutrophils 55 % not estab. normal Not Available [facility] ([facility]) [address] [place], [address], 05/02/2024 18:05:54 04/28/20 24 04/29/2024 T-SAMMY L ACTIV ATION , CD8 SUBSE TS lymphs 28 % not estab. normal Not Available [facility] ([facility]) [address] [place], [address], 05/02/2024 18:05:54 04/28/20 24 04/29/2024 T-SAMMY L ACTIV ATION , CD8 SUBSE TS monocytes 12 % not estab. normal Not Available [facility] ([facility]) [address], [place], [address], 05/02/2024 18:05:54 04/28/20 24 04/29/2024 T-SAMMY L ACTIV ATION , CD8 SUBSE TS eos 4 % not estab. normal Not Available [facility] ([facility]) [address], [place], [address], 05/02/2024 18:05:54 04/28/20 24 04/29/2024 T-SAMMY L ACTIV ATION , CD8 SUBSE TS basos 1 % not estab. 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 0 normal Not Available [facility] ([facility]) [address] [place], [address], 05/02/2024 18:05:54 04/28/20 24 04/29/2024 T-SAMMY L ACTIV ATION , CD8 SUBSE TS lymphs (absolute) 1.9 x10e3 /uL 0.7-3. 1 normal Not Available [facility] ([facility]) [address] [place], [address], 05/02/2024 18:05:54 04/28/20 24 04/29/2024 T-SAMMY L ACTIV ATION , CD8 SUBSE TS monocytes(ab solute) 0.8 x10e3 /uL 0.1-0. 9 normal Not Available [facility] ([facility]) [address], [place], [address], 05/02/2024 18:05:54 04/28/20 24 04/29/2024 T-SAMMY L ACTIV ATION , CD8 SUBSE TS eos (absolute) 0.3 x10e3 /uL 0.0-0. 4 normal Not Available [facility] ([facility]) [address], [place], [address], 05/02/2024 18:05:54 04/28/20 24 04/29/2024 T-SAMMY L ACTIV ATION , CD8 SUBSE TS baso (absolute) 0.1 x10e3 /uL 0.0-0. 2 normal Not Available [facility] ([facility]) [address], [place], [address], 05/02/2024 18:05:54 04/28/20 24 04/29/2024 T-SAMMY L ACTIV ATION , CD8 SUBSE TS immature granulocytes 0 % not estab. Not Available [facility] ([facility]) [address] [place], [address], 05/02/2024 18:05:54 04/28/20 24 04/29/2024 T-SAMMY L ACTIV ATION , CD8 SUBSE TS immature grans (abs) 0.0 x10e3 /uL 0.0-0. 1 Not Available [facility] ([facility]) [address] [place], [address], 05/02/2024 18:05:54 04/28/20 24 04/29/2024 T-SAMMY L ACTIV ATION , CD8 SUBSE TS NRBC LETTER SORTING MACHINE OPERATOR Not Available [facility] ([facility]) [address] [place], [address], 05/02/2024 18:05:54 04/28/20 24 04/29/2024 T-SAMMY L ACTIV ATION , CD8 SUBSE TS hematology comments: LETTER SORTING MACHINE OPERATOR Not Available [facility] ([facility]) [address], [place], [address], 05/02/2024 18:05:54 04/28/20 24 05/02/2024 T-SAMMY L ACTIV ATION , CD8 SUBSE TS absolute cd 4 helper 891 /uL 359-15 19 Not Available [facility] ([facility]) [address], [place], [address], 05/02/2024 18:05:54 04/28/20 24 05/02/2024 T-SAMMY L ACTIV ATION , CD8 SUBSE TS % cd 4 pos. lymph. 46.9 % 30.8-5 8.5 Not Available [facility] ([facility]) [address], [place], [address], 05/02/2024 18:05:54 04/28/20 24 05/02/2024 T-SAMMY L ACTIV ATION , CD8 SUBSE TS absolute cd 8 (supp) 922 /uL 109-89 7 above high normal Not Available [facility] ([facility]) [address], [place], [address], 05/02/2024 18:05:54 04/28/20 24 05/02/2024 T-SAMMY L ACTIV ATION , CD8 SUBSE TS % cd 8 pos. lymph. 48.5 % 12.0-3 5.5 above high normal Not Available [facility] ([facility]) [address] [place], [address], 05/02/2024 18:05:54 04/28/20 24 05/02/2024 T-SAMMY L ACTIV ATION , CD8 SUBSE TS cd4/cd8 ratio 0.97 0.92-3 .72 Not Available [facility] ([facility]) [address] [place], [address], 05/02/2024 18:05:54 04/28/20 24 04/29/2024 ELECT ROLYT E PANEL sodium 139 mmol/ L 134-14 4 normal Not Available [facility] ([facility]) [address] [place], [address], 05/02/2024 18:05:55 04/28/20 24 04/29/2024 ELECT ROLYT E PANEL potassium 4.2 mmol/ L 3.5-5. 2 normal Not Available [facility] ([facility]) [address] [place], [address], 05/02/2024 18:05:55 04/28/20 24 04/29/2024 ELECT ROLYT E PANEL chloride 104 mmol/ L 96-106 normal Not Available [facility] ([facility]) [address] [place], [address], 05/02/2024 18:05:55 04/28/20 24 04/29/2024 ELECT ROLYT E PANEL carbon dioxide, total 20 mmol/ L 20-29 normal Not Available [facility] ([facility]) [address] [place], [address], 05/02/2024 18:05:55 04/28/20 24 04/29/2024 RNA, REAL TIME PCR (GRAP H) HIV-1 RNA by PCR <20 copie s/mL HIV-1 RNA not detec kelton The repor table range for this assay is 20 to 10,00 0,000 copie s HIV-1 RNA/m L. Not Available [facility] ([facility]) [address] [place], [address], 05/02/2024 18:05:55 04/28/20 24 04/29/2024 RNA, REAL TIME PCR (GRAP H) log10 HIV-1 RNA COMMEN T log10 copy/ mL Unabl e to calcu late resul t since non-n umeri c resul t obtai fabi for compo nent test. Not Available [facility] ([facility]) [address], [place], [address], 05/02/2024 18:05:55 04/28/20 24 04/30/2024 RNA, REAL TIME PCR (GRAP H) pdf . Not Available [facility] ([facility]) [address], [place], [address], 05/02/2024 18:05:55 04/28/20 24 04/29/2024 HCV ANTIB [...] e HCV infec tion. Not Available [facility] ([facility]) [address], [place], [address], 05/02/2024 18:05:56 04/28/20 24 04/29/2024 CREAT ININE creatinine 1.05 mg/dL 0.57-1 .00 above high normal Not Available [facility] ([facility]) [address], [place], [address], 05/02/2024 18:05:56 04/28/20 24 04/29/2024 CREAT ININE eGFR 61 mL/mi n/1.7 3 >59 normal Not Available [facility] ([facility]) [address], [place], [address], 05/02/2024 18:05:56 04/28/20 24 04/29/2024 AST (SGOT ) AST (SGOT) 30 IU/L 0-40 normal Not Available [facility] ([facility]) [address], [place], [address], 05/02/2024 18:05:57 04/28/20 24 04/29/2024 ALT (SGPT ) ALT (SGPT) 19 IU/L 0-32 normal Not Available [facility] ([facility]) [address], [place], [address], 05/02/2024 18:05:57 04/28/20 24 04/29/2024 RPR RPR Non Reacti ve non reacti ve Not Available [facility] ([facility]) [address], [place], [address], 05/02/2024 18:05:58 08/03/2008/05/2024 HCV ANTIB TIMMY hep [...] e HCV infec tion. Not Available [facility] ([facility]) [address], [place], [address], 08/05/2024 14:06:41 08/03/2008/04/2024 CBC/D /PLT W/ REFLE X RODRIGO TIN WBC 7.3 x10e3 /uL 3.4-10 .8 normal Not Available [facility] ([facility]) [address], [place], [address], 2024 18:05:58 08/03/2008/04/2024 CBC/D /PLT W/ REFLE X RODRIGO TIN RBC 3.73 x10e6 /uL 3.77-5 .28 below low normal Not Available [facility] ([facility]) [address], [place], [address], 2024 18:05:58 08/03/2008/04/2024 CBC/D /PLT W/ REFLE X RODRIGO TIN hemoglobin 13.8 g/dL 11.1-1 5.9 normal Not Available [facility] ([facility]) [address], [place], [address], 2024 18:05:58 08/03/20 24 08/04/2024 CBC/D /PLT W/ REFLE X RODRIGO TIN hematocrit 40.7 % 34.0-4 6.6 normal Not Available [facility] ([facility]) [address], [place], [address], 2024 18:05:58 08/03/2008/04/2024 CBC/D /PLT W/ REFLE X RODRIGO TIN MCV 109 fL 79-97 above high normal Not Available [facility] ([facility]) [address] [place], [address], 2024 18:05:58 08/03/2008/04/2024 CBC/D /PLT W/ REFLE X RODRIGO TIN MCH 37.0 pg 26.6-3 3.0 above high normal Not Available [facility] ([facility]) [address], [place], [address], 2024 18:05:58 08/03/2008/04/2024 CBC/D /PLT W/ REFLE X RODRIGO TIN MCHC 33.9 g/dL 31.5-3 5.7 normal Not Available [facility] ([facility]) [address] [place], [address], 2024 18:05:58 08/03/2008/04/2024 CBC/D /PLT W/ REFLE X RODRIGO TIN RDW 13.4 % 11.7-1 5.4 Not Available [facility] ([facility]) [address] [place], [address], 2024 18:05:58 08/03/20 24 08/04/2024 CBC/D /PLT W/ REFLE X RODRIGO TIN platelets 233 x10e3 /uL 150-45 0 normal Not Available [facility] ([facility]) [address], [place], [address], 2024 18:05:58 08/03/20 24 08/04/2024 CBC/D /PLT W/ REFLE X RODRIGO TIN neutrophils 56 % not estab. normal Not Available [facility] ([facility]) [address], [place], [address], 2024 18:05:58 08/03/2008/04/2024 CBC/D /PLT W/ REFLE X RODRIGO TIN lymphs 27 % not estab. normal Not Available [facility] ([facility]) [address], [place], [address], 2024 18:05:58 08/03/20 24 08/04/2024 CBC/D /PLT W/ REFLE X RODRIGO TIN monocytes 11 % not estab. normal Not Available [facility] ([facility]) [address], [place], [address], 2024 18:05:58 08/03/20 24 08/04/2024 CBC/D /PLT W/ REFLE X RODRIGO TIN eos 5 % not estab. normal Not Available [facility] ([facility]) [address] [place] [address], [place], [address], 2024 18:05:58 08/03/2008/04/2024 CBC/D /PLT W/ REFLE X RODRIGO TIN basos 1 % not estab. 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 0 normal Not Available [facility] ([facility]) [address] [place], [address], 2024 18:05:58 08/03/2008/04/2024 CBC/D /PLT W/ REFLE X RODRIGO TIN lymphs (absolute) 2.0 x10e3 /uL 0.7-3. 1 normal Not Available [facility] ([facility]) [address] [place], [address], 2024 18:05:58 08/03/20 24 08/04/2024 CBC/D /PLT W/ REFLE X RODRIGO TIN monocytes(ab solute) 0.8 x10e3 /uL 0.1-0. 9 normal Not Available [facility] ([facility]) [address] [place], [address], 2024 18:05:58 08/03/20 24 08/04/2024 CBC/D /PLT W/ REFLE X RODRIGO TIN eos (absolute) 0.4 x10e3 /uL 0.0-0. 4 normal Not Available [facility] ([facility]) [address] [place], [address], 2024 18:05:58 08/03/2008/04/2024 CBC/D /PLT W/ REFLE X RODRIGO TIN baso (absolute) 0.1 x10e3 /uL 0.0-0. 2 normal Not Available [facility] ([facility]) [address] [place], [address], 2024 18:05:58 08/03/2008/04/2024 CBC/D /PLT W/ REFLE X RODRIGO TIN immature granulocytes 0 % not estab. Not Available [facility] ([facility]) [address], [place], [address], 2024 18:05:58 08/03/2008/04/2024 CBC/D /PLT W/ REFLE X RODRIGO TIN immature grans (abs) 0.0 x10e3 /uL 0.0-0. 1 Not Available [facility] ([facility]) [address], [place], [address], 2024 18:05:58 08/03/2008/04/2024 CBC/D /PLT W/ REFLE X RODRIGO TIN NRBC LETTER SORTING MACHINE OPERATOR Not Available [facility] ([facility]) [address], [place], [address], 2024 18:05:58 08/03/2008/04/2024 CBC/D /PLT W/ REFLE X RODRIGO TIN hematology comments: LETTER SORTING MACHINE OPERATOR Not Available [facility] ([facility]) [address], [place], [address], 2024 18:05:58 08/03/2008/04/2024 T-SAMMY L ACTIV ATION , CD8 SUBSE TS absolute cd 3 1676 /uL 622-24 02 Not Available [facility] ([facility]) [address], [place], [address], 2024 18:05:58 08/03/2008/04/2024 T-SAMMY L ACTIV ATION , CD8 SUBSE TS % cd 3 pos. lymph. 83.8 % 57.5-8 6.2 Not Available [facility] ([facility]) [address], [place], [address], 2024 18:05:58 08/03/2008/04/2024 T-SAMMY L ACTIV ATION , CD8 SUBSE TS absolute cd 4 helper 854 /uL 359-15 19 Not Available [facility] ([facility]) [address] [place], [address], 2024 18:05:58 08/03/20 24 08/04/2024 T-SAMMY L ACTIV ATION , CD8 SUBSE TS % cd 4 pos. lymph. 42.7 % 30.8-5 8.5 Not Available [facility] ([facility]) [address] [place], [address], 2024 18:05:58 08/03/2008/04/2024 T-SAMMY L ACTIV ATION , CD8 SUBSE TS absolute cd 8 (supp) 954 /uL 109-89 7 above high normal Not Available [facility] ([facility]) [address] [place], [address], 2024 18:05:58 08/03/2008/04/2024 T-SAMMY L ACTIV ATION , CD8 SUBSE TS % cd 8 pos. lymph. 47.7 % 12.0-3 5.5 above high normal Not Available [facility] ([facility]) [address] [place], [address], 2024 18:05:58 08/03/2008/04/2024 T-SAMMY L ACTIV ATION , CD8 SUBSE TS cd4/cd8 ratio 0.90 0.92-3 .72 below low normal Not Available [facility] ([facility]) [address] [place], [address], 2024 18:05:58 08/03/2008/04/2024 T-SAMMY L ACTIV ATION , CD8 SUBSE TS abs.cd8+hla- dr+lymph 314 /uL 0-117 above high normal Not Available [facility] ([facility]) [address] [place], [address], 2024 18:05:58 08/03/2008/04/2024 T-SAMMY L ACTIV ATION , CD8 SUBSE TS % cd8+hla-dr+ lymphs 15.7 % 0.0-4. 9 above high normal Not Available [facility] ([facility]) [address], [place], [address], 2024 18:05:58 08/03/20 24 08/04/2024 T-SAMMY L ACTIV ATION , CD8 SUBSE TS % cd3+cd25+ lymphs 17.9 % 4.9-25 .9 Not Available [facility] ([facility]) [address] [place], [address], 2024 18:05:58 08/03/2008/04/2024 T-SAMMY L ACTIV ATION , CD8 SUBSE TS abs.cd3+cd25 + lymphs 358 /uL 79-535 Not Available [facility] ([facility]) [address], [place], [address], 2024 18:05:58 08/03/20 24 08/04/2024 T-SAMMY L ACTIV ATION , CD8 SUBSE TS % cd8+cd38+ lymphs 19.8 % 0.0-17 .7 above high normal Not Available [facility] ([facility]) [address], [place], [address], 2024 18:05:58 08/03/20 24 08/04/2024 T-SAMMY L ACTIV ATION , CD8 SUBSE TS abs.cd8+cd38 + lymphs 396 /uL 0-381 above high normal Not Available [facility] ([facility]) [address] [place], [address], 2024 18:05:58 08/03/20 24 08/05/2024 ELECT ROLYT E PANEL sodium 142 mmol/ L 134-14 4 normal Not Available [facility] ([facility]) [address], [place], [address], 2024 18:05:59 08/03/2008/05/2024 ELECT ROLYT E PANEL potassium 4.3 mmol/ L 3.5-5. 2 normal Not Available [facility] ([facility]) [address], [place], [address], 2024 18:05:59 08/03/2008/05/2024 ELECT ROLYT E PANEL chloride 104 mmol/ L 96-106 normal Not Available [facility] ([facility]) [address], [place], [address], 2024 18:05:59 08/03/2008/05/2024 ELECT ROLYT E PANEL carbon dioxide, total 20 mmol/ L 20-29 normal Not Available [facility] ([facility]) [address], [place], [address], 2024 18:05:59 08/03/2008/06/2024 CT NG M GENIT ALIUM BRUNO, URINE mycoplasma genitalium BRUNO Negati ve negati ve Not Available [facility] ([facility]) [address] [place], [address], 2024 18:05:59 08/03/2008/06/2024 CT NG M GENIT ALIUM BRUNO, URINE chlamydia trachomatis, BRUNO Negati ve negati ve Not Available [facility] ([facility]) [address] [place], [address], 2024 18:05:59 08/03/2008/06/2024 CT NG M GENIT ALIUM BRUNO, URINE neisseria gonorrhoeae, BRUNO Negati ve negati ve Not Available [facility] ([facility]) [address] [place], [address], 2024 18:05:59 08/03/20 24 08/05/2024 GLOM FILT RATE, ESTIM ATED creatinine 1.04 mg/dL 0.57-1 .00 above high normal Not Available [facility] ([facility]) [address], [place], [address], 2024 18:06:00 08/03/20 24 08/05/2024 GLOM FILT RATE, ESTIM ATED eGFR 62 mL/mi n/1.7 3 >59 normal Not Available [facility] ([facility]) [address], [place], [address], 2024 18:06:00 08/03/20 24 08/04/2024 RNA, REAL TIME PCR (NON- GRAPH ) HIV-1 RNA by PCR <20 copie s/mL HIV-1 RNA not detec kelton The repor table range for this assay is 20 to 10,00 0,000 copie s HIV-1 RNA/m L. Not Available [facility] ([facility]) [address], [place], [address], 2024 18:06:00 08/03/20 24 08/04/2024 RNA, REAL TIME PCR (NON- GRAPH ) log10 HIV-1 RNA COMMEN T log10 copy/ mL Unabl e to calcu late resul t since non-n umeri c resul t obtai fabi for compo nent test. Not Available [facility] ([facility]) [address], [place], [address], 2024 18:06:00 08/03/2008/04/2024 RPR, RFX QN RPR/C ONFIR M TP RPR Non Reacti ve non reacti ve Not Available [facility] ([facility]) [address], [place], [address], 2024 18:06:01 08/03/20 24 2024 HCV ANTIB [...] e HCV infec tion. Not Available [facility] ([facility]) [address] [place], [address], 2024 18:06:01 08/03/20 24 08/05/2024 AST (SGOT ) AST (SGOT) 26 IU/L 0-40 normal Not Available [facility] ([facility]) [address] [place], [address], 2024 18:06:02 08/03/20 24 08/05/2024 ALT (SGPT ) ALT (SGPT) 27 IU/L 0-32 normal Not Available [facility] ([facility]) [address] [place], [address], 2024 18:06:02 08/03/[address] PROBL EM request problem COMMEN T [facility] was unabl e to colle ct suffi cient speci men to perfo rm the follo wing test( s), and is provi ding the patie nt with re-co llect ion instr uctio ns. TEST: [id number] HCV Antib timmy Not Available [facility] ([facility]) [address] [place], [address], 2024 18:06:03 01/12/20 25 01/12/2025 CBC/D /PLT W/ REFLE X RODRIGO TIN WBC 6.2 x10e3 /uL 3.4-10 .8 normal Not Available [facility] ([facility]) [address], [place], [address], 02/01/2025 18:07:12 01/12/20 25 01/12/2025 CBC/D /PLT W/ REFLE X RODRIGO TIN RBC 3.84 x10e6 /uL 3.77-5 .28 normal Not Available [facility] ([facility]) [address], [place], [address], 02/01/2025 18:07:12 01/12/20 25 01/12/2025 CBC/D /PLT W/ REFLE X RODRIGO TIN hemoglobin 14.2 g/dL 11.1-1 5.9 normal Not Available [facility] ([facility]) [address], [place], [address], 02/01/2025 18:07:12 01/12/20 25 01/12/2025 CBC/D /PLT W/ REFLE X RODRIGO TIN hematocrit 41.7 % 34.0-4 6.6 normal Not Available [facility] ([facility]) [address] [place], [address], 02/01/2025 18:07:12 01/12/20 25 01/12/2025 CBC/D /PLT W/ REFLE X RODRIGO TIN MCV 109 fL 79-97 above high normal Not Available [facility] ([facility]) [address] [place], [address], 02/01/2025 18:07:12 01/12/20 25 01/12/2025 CBC/D /PLT W/ REFLE X RODRIGO TIN MCH 37.0 pg 26.6-3 3.0 above high normal Not Available [facility] ([facility]) [address] [place], [address], 02/01/2025 18:07:12 01/12/20 25 01/12/2025 CBC/D /PLT W/ REFLE X RODRIGO TIN MCHC 34.1 g/dL 31.5-3 5.7 normal Not Available [facility] ([facility]) [address], [place], [address], 02/01/2025 18:07:12 01/12/20 25 01/12/2025 CBC/D /PLT W/ REFLE X RODRIGO TIN RDW 14.3 % 11.7-1 5.4 Not Available [facility] ([facility] [address], [place], [address], 02/01/2025 18:07:12 01/12/20 25 01/12/2025 CBC/D /PLT W/ REFLE X RODRIGO TIN platelets 213 x10e3 /uL 150-45 0 normal Not Available [facility] ([facility]) [address], [place], [address], 02/01/2025 18:07:12 01/12/20 25 01/12/2025 CBC/D /PLT W/ REFLE X RODRIGO TIN neutrophils 54 % not estab. normal Not Available [facility] ([facility]) [address], [place], [address], 02/01/2025 18:07:12 01/12/20 25 01/12/2025 CBC/D /PLT W/ REFLE X RODRIGO TIN lymphs 27 % not estab. normal Not Available [facility] ([facility]) [address], [place], [address], 02/01/2025 18:07:12 01/12/20 25 01/12/2025 CBC/D /PLT W/ REFLE X RODRIGO TIN monocytes 13 % not estab. normal Not Available [facility] ([facility]) [address], [place], [address], 02/01/2025 18:07:12 01/12/20 25 01/12/2025 CBC/D /PLT W/ REFLE X RODRIGO TIN eos 5 % not estab. normal Not Available [facility] ([facility]) [address], [place], [address], 02/01/2025 18:07:12 01/12/20 25 01/12/2025 CBC/D /PLT W/ REFLE X RODRIGO TIN basos 1 % not estab. normal Not Available [facility] ([facility]) [address], [place], [address], 02/01/2025 18:07:12 01/12/20 25 01/12/2025 CBC/D /PLT W/ REFLE X RODRIGO TIN immature cells LETTER SORTING MACHINE OPERATOR Not Available [facility] ([facility]) [address], [place], [address], 02/01/2025 18:07:12 01/12/20 25 01/12/2025 CBC/D /PLT W/ REFLE X RODRIGO TIN neutrophils (absolute) 3.4 x10e3 /uL 1.4-7. 0 normal Not Available [facility] ([facility]) [address] [place], [address], 02/01/2025 18:07:12 01/12/20 25 01/12/2025 CBC/D /PLT W/ REFLE X RODRIGO TIN lymphs (absolute) 1.7 x10e3 /uL 0.7-3. 1 normal Not Available [facility] ([facility]) [address] [place], [address], 02/01/2025 18:07:12 01/12/20 25 01/12/2025 CBC/D /PLT W/ REFLE X RODRIGO TIN monocytes(ab solute) 0.8 x10e3 /uL 0.1-0. 9 normal Not Available [facility] ([facility]) [address] [place], [address], 02/01/2025 18:07:12 01/12/20 25 01/12/2025 CBC/D /PLT W/ REFLE X RODRIGO TIN eos (absolute) 0.3 x10e3 /uL 0.0-0. 4 normal Not Available [facility] ([facility]) [address], [place], [address], 02/01/2025 18:07:12 01/12/20 25 01/12/2025 CBC/D /PLT W/ REFLE X RODRIGO TIN baso (absolute) 0.0 x10e3 /uL 0.0-0. 2 normal Not Available [facility] ([facility]) [address], [place], [address], 02/01/2025 18:07:12 01/12/20 25 01/12/2025 CBC/D /PLT W/ REFLE X RODRIGO TIN immature granulocytes 0 % not estab. Not Available [facility] ([facility]) [address], [place], [address], 02/01/2025 18:07:12 01/12/20 25 01/12/2025 CBC/D /PLT W/ REFLE X RODRIGO TIN immature grans (abs) 0.0 x10e3 /uL 0.0-0. 1 Not Available [facility] ([facility]) [address], [place], [address], 02/01/2025 18:07:12 01/12/20 25 01/12/2025 CBC/D /PLT W/ REFLE X RODRIGO TIN NRBC LETTER S[employer]ING MACHINE OPERATOR Not Available [facility] ([facility]) [address], [place], [address], 02/01/2025 18:07:12 01/12/20 25 01/12/2025 CBC/D /PLT W/ REFLE X RODRIGO TIN hematology comments: LETTER SORTING MACHINE OPERATOR Not Available [facility] ([facility]) [address], [place], [address], 02/01/2025 18:07:12 01/12/20 25 01/16/2025 RNA PCR GRAPH RFX PRIME /ARCH HIV-1 RNA by PCR <20 copie s/mL HIV-1 RNA not detec kelton The repor table range for this assay is 20 to 10,00 0,000 copie s HIV-1 RNA/m L. Not Available [facility] [address] [place] [address], [place], [address], 02/01/2025 18:07:13 01/12/20 25 01/16/2025 RNA PCR GRAPH RFX PRIME /ARCH log10 HIV-1 RNA COMMEN T log10 copy/ mL Unabl e to calcu late resul t since non-n umeri c resul t obtai fabi for compo nent test. Not Available [facility] [address] [place] [address], [place], [address], 02/01/2025 18:07:13 01/12/20 25 01/16/2025 RNA PCR GRAPH RFX PRIME /ARCH reflex to prime or archive Commen t Refle x to GenoS ure Archi ve indic ated. Not Available [facility] [address] [place] [address], [place], [address], 02/01/2025 18:07:13 01/12/20 25 01/16/2025 RNA PCR GRAPH RFX PRIME /ARCH pdf . Not Available [facility] [address] [place] [address], [place], [address], 02/01/2025 18:07:13 01/12/20 25 02/01/2025 RNA PCR GRAPH RFX PRIME /ARCH pdf . Not Available [facility] [address] [place] [address], [place], [address], 02/01/2025 18:07:13 01/12/20 25 02/01/2025 RNA PCR GRAPH RFX PRIME /ARCH HIV genosure archive COMMEN T Heladio gene ampli con adequ ate for seque ncing Not Available [facility] [address] [place] [address], [place], [address], 02/01/2025 18:07:13 04/0902/01/2025 RNA PCR GRAPH RFX PRIME /ARCH HIV [...] gravi r Sensi tive [place]* : None [place] egrav ir [place] egrav ir Sensi tive Colette* : None [...] T124A , G163S , [id number] , [id number] PA: I15V, L19I, E35D, M36I, N37D, L63P, H69C, Q92K Asses sment of drug susce ptibi lity is based upon detec kelton mutat ions and inter prete d using an advan charlee propr ietar y algor ithm (vers ion 19). Not Available [employer] [address] [place] [address], [address], 02/01/2025 18:07:13 01/12/20 25 02/01/2025 RNA PCR [...] ng this repor t, christian e visit [employer] com or call Danielleo lonnie Contreras ce at betwe en the hours of [...] (roblero o acids 1-288 ) codin g walter ns deriv ed from HIV-1 cell assoc iated DNA. Subty pe is deter mined using the prote ase and rever se trans cript ase seque nce infor matio n. This test was devel oped and its perfo rmanc e germain cteri stics deter mined by [employer]. It has not been clear ed or appro shantal by the Food and Drug Admin istra tion. [employer] is a subsi diary of [employer] at[employer] ratio n of [employer], using the brand [employer]. The resul ts shoul d not be used as the sole crite yadira for patie nt manag ement . This docum ent conta ins priva te and confi denti al healt h infor matio n prote cted by state and marcelino al law. If you have recei shantal this docum ent in error , christian e call . Not Available [employer] [address] [facility], [place], [address], 02/01/2025 18:07:13 01/12/20 25 01/12/2025 GLOM FILT RATE, ESTIM ATED creatinine 1.07 mg/dL 0.57-1 .00 above high normal Not Available [facility] ([facility]) [address], [place], [address], 02/01/2025 18:07:13 01/12/20 25 01/12/2025 GLOM FILT RATE, ESTIM ATED eGFR 59 mL/mi n/1.7 3 >59 below low normal Not Available [facility] ([facility]) [address] [place], [address], 02/01/2025 18:07:13 01/12/20 25 01/12/2025 PREP: RPR W/REF BLANCA TO TITER RPR Non Reacti ve non reacti ve Not Available [facility] ([facility]) [address] [place], [address], 02/01/2025 18:07:14 01/12/20 25 01/12/2025 AST (SGOT ) AST (SGOT) 21 IU/L 0-40 normal Not Available [facility] ([facility]) [address] [place], [address], 02/01/2025 18:07:14 01/12/20 25 01/12/2025 ALT (SGPT ) ALT (SGPT) 19 IU/L 0-32 normal Not Available [facility] ([facility]) [address] [place], [address], 02/01/2025 18:07:15 04/26/20 25 04/27/2025 CBC/D /PLT W/ REFLE X RODRIGO TIN WBC 5.8 x10e3 /uL 3.4-10 .8 normal Not Available [facility] ([facility]) [address] [place], [address], 04/28/2025 00:05:19 04/26/20 25 04/27/2025 CBC/D /PLT W/ REFLE X RODRIGO TIN RBC 3.74 x10e6 /uL 3.77-5 .28 below low normal Not Available [facility] ([facility]) [address] [place], [address], 04/28/2025 00:05:19 04/26/2004/27/2025 CBC/D /PLT W/ REFLE X RODRIGO TIN hemoglobin 14.1 g/dL 11.1-1 5.9 normal Not Available [facility] ([facility]) [address] [place], [address], 04/28/2025 00:05:19 04/26/2004/27/2025 CBC/D /PLT W/ REFLE X RODRIGO TIN hematocrit 40.5 % 34.0-4 6.6 normal Not Available [facility] ([facility]) [address] [place], [address], 04/28/2025 00:05:19 04/26/2004/27/2025 CBC/D /PLT W/ REFLE X RODRIGO TIN MCV 108 fL 79-97 above high normal Not Available [facility] ([facility]) [address] [place], [address], 04/28/2025 00:05:19 04/26/2004/27/2025 CBC/D /PLT W/ REFLE X RODRIGO TIN MCH 37.7 pg 26.6-3 3.0 above high normal Not Available [facility] ([facility]) [address] [place], [address], 04/28/2025 00:05:19 04/26/2004/27/2025 CBC/D /PLT W/ REFLE X RODRIGO TIN MCHC 34.8 g/dL 31.5-3 5.7 normal Not Available [facility] ([facility]) [address] [place], [address], 04/28/2025 00:05:19 04/26/2004/27/2025 CBC/D /PLT W/ REFLE X RODRIGO TIN RDW 13.5 % 11.7-1 5.4 Not Available [facility] ([facility]) [address] [place], [address], 04/28/2025 00:05:19 04/26/2004/27/2025 CBC/D /PLT W/ REFLE X RODRIGO TIN platelets 213 x10e3 /uL 150-45 0 normal Not Available [facility] ([facility]) [address], [place], [address], 04/28/2025 00:05:19 04/26/2004/27/2025 CBC/D /PLT W/ REFLE X RODRIGO TIN neutrophils 57 % not estab. normal Not Available [facility] ([facility]) [address], [place], [address], 04/28/2025 00:05:19 04/26/2004/27/2025 CBC/D /PLT W/ REFLE X RODRIGO TIN lymphs 26 % not estab. normal Not Available [facility] ([facility]) [address], [place], [address], 04/28/2025 00:05:19 04/26/2004/27/2025 CBC/D /PLT W/ REFLE X RODRIGO TIN monocytes 11 % not estab. normal Not Available [facility] ([facility]) [address], [place], [address], 04/28/2025 00:05:19 04/26/2004/27/2025 CBC/D /PLT W/ REFLE X RODRIGO TIN eos 5 % not estab. normal Not Available [facility] ([facility]) [address], [place], [address], 04/28/2025 00:05:19 04/26/2004/27/2025 CBC/D /PLT W/ REFLE X RODRIGO TIN basos 1 % not estab. 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 0 normal Not Available [facility] ([facility]) [address] [place], [address], 04/28/2025 00:05:19 04/26/2004/27/2025 CBC/D /PLT W/ REFLE X RODRIGO TIN lymphs (absolute) 1.5 x10e3 /uL 0.7-3. 1 normal Not Available [facility] ([facility] [address] [place], [address], 04/28/2025 00:05:19 04/26/2004/27/2025 CBC/D /PLT W/ REFLE X RODRIGO TIN monocytes(ab solute) 0.6 x10e3 /uL 0.1-0. 9 normal Not Available [facility] ([facility]) [address] [place], [address], 04/28/2025 00:05:19 04/26/2004/27/2025 CBC/D /PLT W/ REFLE X RODRIGO TIN eos (absolute) 0.3 x10e3 /uL 0.0-0. 4 normal Not Available [facility] ([facility]) [address] [place], [address], 04/28/2025 00:05:19 04/26/2004/27/2025 CBC/D /PLT W/ REFLE X RODRIGO TIN baso (absolute) 0.1 x10e3 /uL 0.0-0. 2 normal Not Available [facility] ([facility] [address] [place], [address], 04/28/2025 00:05:19 04/26/2004/27/2025 CBC/D /PLT W/ REFLE X RODRIGO TIN immature granulocytes 0 % not estab. Not Available [facility] ([facility] [address], [place], [address], 04/28/2025 00:05:19 04/26/2004/27/2025 CBC/D /PLT W/ REFLE X RODRIGO TIN immature grans (abs) 0.0 x10e3 /uL 0.0-0. 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 lymph. 41.0 % 30.8-5 8.5 Not Available [facility] ([facility]) [address] [place], [address], 04/28/2025 00:05:20 04/26/2004/26/2025 HCV RT-PC R, QUANT (NON- GRAPH ) test information: Commen t The quant itati ve range of this assay is 15 IU/mL to 100 shahnaz on IU/mL . 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 Not Available [facility] ([facility]) [address] [place], [address], 04/28/2025 00:05:20 04/26/2004/27/2025 GLOM FILT RATE, ESTIM ATED creatinine 1.07 mg/dL 0.57-1 .00 above high normal Not Available [facility] ([facility]) [address] [place], [address], 04/28/2025 00:05:21 04/26/2004/27/2025 GLOM FILT RATE, ESTIM ATED eGFR 59 mL/mi n/1.7 3 >59 below low normal Not Available [facility] ([facility]) [address] [place], [address], 04/28/2025 00:05:21 04/26/2004/27/2025 RNA, REAL TIME PCR (NON- GRAPH ) HIV-1 RNA by PCR <20 copie s/mL HIV-1 RNA not detec kelton The repor table range for this assay is 20 to 10,00 0,000 copie s HIV-1 RNA/m L. Not Available [facility] ([facility]) [address], [place], [address], 04/28/2025 00:05:21 04/26/2004/27/2025 RNA, REAL TIME PCR (NON- GRAPH ) log10 HIV-1 RNA COMMEN T log10 copy/ mL Unabl e to calcu late resul t since non-n umeri c resul t obtai fabi for compo nent test. Not Available [facility] ([facility]) [address], [place], [address], 04/28/2025 00:05:21 04/26/2004/27/2025 RPR, RFX QN RPR/C ONFIR M TP RPR Non Reacti ve non reacti ve Not Available [facility] ([facility] [address] [place], [address], 04/28/2025 00:05:22 04/26/2004/27/2025 AST (SGOT ) AST (SGOT) 25 IU/L 0-40 normal Not Available [facility] ([facility]) [address] [place], [address], 04/28/2025 00:05:22 04/26/2004/27/2025 ALT (SGPT ) ALT (SGPT) 22 IU/L 0-32 normal Not Available [facility] ([facility] [address] [place], [address], 04/28/2025 00:05:22 Result Notes None recorded. Problems Name Problem SNOMED Code Status Onset Date Resolution Date Notes Provider Name and Address Organization Details Recorded Time Chronic hepatitis C 943196403 Active 2012 Chronic hepatitis C without mention of hepatic coma; snomeddesc ription: Chronic hepatitis C; Report Immunity to Registry: Yes; Notes: HCV ab pos; HCV VL Undetected 2012; 2015; 2016; 2021; Chronic hepatitis C; snomeddesc ription: Chronic hepatitis C; Report Immunity to Registry: Yes; Notes: HCV ab pos; HCV VL Undetected 2012; 2015; 2016; 2021; Not Available [facility] 4 06:58:42 Gastroeso phageal reflux disease 930511391 Active 2012 Esophageal reflux; snomeddesc ription: Gastroesop hageal reflux disease; Report Immunity to Registry: Yes; Gastroeso phageal reflux disease; snomeddesc ription: Gastroesop hageal reflux disease; Report Immunity to Registry: Yes; Not Available [facility] 4 06:58:41 Human immunodef iciency virus infection 02432638 Active 2013 Human immunodefi ciency virus [HIV] disease; snomeddesc ription: Human immunodefi ciency virus infection; Report Immunity to Registry: Yes; Human immunodefi ciency virus infection; snomeddesc ription: Human immunodefi ciency virus infection; Report Immunity to Registry: Yes; Not Available [facility] 4 06:58:42 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 616533301 Active 2018 Herpesvira l infection of perianal skin and rectum; snomeddesc ription: Herpesvira l infection of perianal skin and rectum; Report Immunity to Registry: Yes; Not Available [facility] 4 06:58:41 Genital herpes simplex 28384035 Active 2018 Other genital herpes; snomeddesc ription: Herpesvira l infection of perianal skin and rectum; Report Immunity to Registry: Yes; Not Available [facility] 4 06:58:41 Chronic type B viral hepatitis 45958100 Active 2020 Chronic type B viral hepatitis; snomeddesc ription: Chronic type B viral hepatitis; Report Immunity to Registry: Yes; Notes: s ag pos; HBV VL Undetected 2015; Viral hepatitis B without mention of hepatic coma, chronic, without mention of hepatitis delta; snomeddesc ription: Chronic type B viral hepatitis; Report Immunity to Registry: Yes; Notes: s ag pos; HBV VL Undetected 2012; 2015; Not Available [facility] 4 06:58:42 Problem Notes None recorded. Medical Equipment None Reported. Allergies Allergen ID Allergen Name Allergen Category Reaction Reaction Severity Criticality Documentation Date Start Date Code Code System Note Provider Name and Address Organization Details Recorded Time 499 econazole nitrate medicatio n rash Not available Not available 11/25/20232011 87575 4 RxNorm React ion: Rash and other nonsp ecifi c skin erupt ion; Comme nt: adver se_ev ent_t ype: [id number]; ; Not Available [facility] 4 06:50:31 Medications Name Sig Start Date [...] ccal polysacc haride PPV23; SU_FULL_ NAME: Brittni murillo; Not Available Not Available Not Available fluconazo [...] murillo; Not Available Not Available Not Available omeprazol [...] 1 TABLET BY MOUTH TWICE DAILY AND TAKE 2 TABLETS AT BEDTIME NEEDED active Not Available Not [...] no; Not Available Not Available Not Available chlorhexi dine gluconate 0.12 % mouthwash Place 15 mL twice a day by mucous membrane route, for dry mouth. active Not Available Not Available No t Available lorazepam Quantity : ; 0 refill(s ) 03/12 completed VACCINE_ IND: no; Not Available Not Available Not Available Seroquel Quantity : ; 0 refill(s ) 03/12 completed VACCINE_ IND: no; Not Available Not Available Not Available Atripla 600 mg-200 mg-300 mg tablet 1 TABLET ORAL at bedtime 03/12 completed Duration : 30; VACCINE_ IND: no; SU_FULL_ NAME: Brittni Celestine murillo; Not Available Not Available Not Available [...] Not Available Not Available Vitals Date Recorded Body height Heart rate Body temperature Body mass index (BMI) Body weight Oxygen saturation Oxygen saturation in Arterial blood by Pulse oximetry Systolic And Diastolic Provider Name and Address Organization Details Last Updated DateTime 5 175.26 cm 69 /min 96.2 [degF] 23.6 kg/m2 86745.7 8 g 98 % 98 % 124/70 mm[Hg] Shweta GUZMÁN 5 13:10:19 Date Recorded Heart rate Respiratory rate Body temperature Oxygen saturation Oxygen saturation in Arterial blood by Pulse oximetry Systolic And Diastolic Provider Name and Address Organization Details Last Updated DateTime 4 74 /min 10 /min 98.2 [degF] 98 % 98 % 124/70 mm[Hg] Yulisa DE SANTIAGO MD [facility] 4 13:49:09 Date Recorded Body height Heart rate Body temperature Systolic And Diastolic Provider Name and Address Organization Details Last Updated DateTime 05/11/2025 175.26 cm 64 /min 97.6 [degF] 127/79 mm[Hg] Yulisa DE SANTIAGO MD [facility] 05/11/2025 14:06:26 Social History None recorded. Functional Status Question Answer Note LastModified by Organizat ion Details LastModified Time Are you able to walk independently without assistance or assistive devices? NOCHAIR [email or web address] Information not available 08/13/2023 Are you able to care for yourself independently? No pt has a caregiver ,pt on wheelchair [email or web address] Information not available 08/13/2023 Mental Status None recorded. Family History Nothing Reported Notes:Family history unknown , Response Property: Yes; Medical History Condition Response AIDS/HIV Y Gynecological HistoryNo gynecological history recorded. Obstetrics History GPAL:G 0 P 0 0 0 0 Past Encounters Encounter ID Performer Location Encounter Start Date Encounter Closed Date Diagnosis/Indication Diagnosis SNOMED-CT Code Diagnosis ICD10 Code Diagnosis IMO Codes Diagnosis Note [id number] Brittni De Santiago MD Main Office [address] [place] [id number] 08/13/2023 14:00:50 08/13/2023 14:56:15 Human immunodeficiency virus infection 56799509 B20 HIVContinu e Triumeq 1 tab po qd. she wishes to continue same regimen. would suggest swicth of regimen if HBV becomes detected. it has been nondtected . watch for sx.strict compliance w dosing reviewed.f /u PCPquestio ns and concerns addressed Chronic hepatitis C 1283 39495 B18.2 past.HCV ab pos; HCV VL Undetected 2012; 2015; 2016; 2021 Type B vir al hepatitis 81182852 B19.10 s ag pos; HBV VL Undetected 2012; 2016HBV VL orderedHDV ABrequest CT scan abd [facility]. Genital he rpes simplex 32668539 A60.9 [place]. [id number] Brittni De Santiago MD Main Office [address] [place] [address] 01/14/2024 09:05:39 01/14/2024 15:25:48 Human immunodeficiency virus infection 43927533 B20 HIVContinu e Triumeq 1 tab po qd. she wishes to continue same regimen.st rict compliance w dosing reviewed.p t aware of PrePf/u PCPquestio ns and concerns addressed [id number] Brittni De Santiago MD Main Office [address] [place] [address] 05/06/2024 13:33:11 05/06/2024 14:06:01 Human immunodeficiency virus infection 63888902 B20 HIVContinu e Triumeq 1 tab po qd.she wishes to continue same regimen. sheis aware of new regimens, 2 drug options, care home injectable s and clinical trials.str ict compliance w dosing reviewed.p t aware of PrePf/u PCPquestio ns and concerns addressed Recurrent urinary tract infection 661592195 N39.0 recent kidney stoneson nitrofuran toin qd suppressio n tx to decrease frequency and severity of UTI.hydrat ionf/u PCP [id number] Brittni De Santiago MD Main Office [address] [place] [address] 11/03/2024 16:09:49 11/03/2024 18:47:37 Human immunodeficiency virus infection 45720192 B20 HIVContinu e Triumeq 1 tab po qd.she wishes to continue same regimen. sheis aware of new regimensst rict compliance w dosing reviewed.p t aware of PrePf/u PCPquestio ns and concerns addressed Recurrent urinary tract infection 738481020 N39.0 recent kidney stoneson nitrofuran toin qd suppressio n tx to decrease frequency and severity of UTI.care home of macrodanti n reviewed, in particular related to lung among other.bene fits and risks reviewedhy drationf/u PCP [id number] Brittni De Santiago MD Main Office [address] [place] [address] 01/25/2025 12:57:48 01/25/2025 20:38:34 Human immunodeficiency virus infection 09176266 B20 HIVContinu e Triumeq 1 tab po qd.abacavi r data has been reviewed.s he wishes to continue same regimen. 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 she is aware of new regimens, 2 drug regimens; injectable s.strict compliance w dosing reviewed.f /u PCPquestio ns and concerns addressed Recurrent urinary tract infection 332274218 N39.0 hx kidney stoneson nitrofuran toin qd suppressio n tx to decrease frequency and severity of UTI.benefi ts and risks reviewedhy drationf/u PCP Xerostomia 52372028 R68. 2 8024 f/u dentist next week: to evaluate upper lip irritation /indurated area. might need biopsy if not resolved.a void salt to avoid irritation on mucosaperi dex bid for dry mouth: swish and spit.consi petty sugar free gum Health Concerns Section Related Observation LastModified by Organization Detai ls LastModified Time None Recorded Concern Status LastModified by Organization Details LastModified Time None Recorded Advance Directives Directive None Recorded Payers Insurance Date Sequence Insurance Name Policy Number Policy Vazquez Covered Member ID Vazquez Member ID Guarantor Name 05/09/2025 1 [facility] (MEDICARE REPLACEMENT/A DVANTAGE - PPO) [id number] Luana Shirley Rodriguez [id number] Luana Shirley Rodriguez 01/23/2024 2 MED[place]ARE B-[place]: [facility] Luana Watson Jennifer [id number] Luana Watson Jennifer 05/08/2025 2 [place] [facility] Luana Watson Jennifer [id number] Luana Shirley Rodriguez Notes Date Note Type Note Provider Name and Address Organization Details Recorded Time 4 text/html ROS as noted in the HPI f/u HIVpt is in office with Scott, partner and telegraph inspector.on Triumeq 1 tab po qd.happy w current regimen.compliant. denies missing dosestolerating well. no complains.vaccines uptodate.12/2023 HIV VL nondetcted; KB8=704; HBV nondtected; no hepatitis C nondetected; no syphillis; eGFR=60;AST/ALT wnl06/2023 OY1=421; HIV VL nondetceted; ALt/AST wnl; eGFR>65; treponema ab neg12/2022 HIV VL nondetected; HCV VL nondetceted; UJ5=902; eGFR>70; ALT/AST wnl1 HIV VL nondetceted; HCV VL Nondetected; eGFR>60; ALT/AST wnl; CD4>600med list reviewed with patient. no changes. 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 no weight changesno jaundiceno n/v/d. 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 denies missing dosestolerating well. no complains.04/2024 HIV VLNondetected; XG3=128; AST 3-; eGFR 61;12/2023 HIV VL nondetcted; YY6=720; HBV VL nondtected; hepatitis C nondetected; no syphillis; eGFR=60;AST/ALT wnl ; F0; no HDV06/2023 PW9=669; HIV VL nondetceted; ALt/AST wnl; eGFR>65; treponema ab negwas Hospitalized April 2024 with UTI,kidney stones x 4, bacteremia; recovered; underwent lithotripsyno fever. no weight changesno jaundiceno n/v/miah De Santiago MD [address] [place] [address], [phone], SHABBIR DE SANTIAGO MD [facility] 05/06/2024 14:16:45 5 text/html ROS as noted in the HPI f/u HIVon Triumeq 1 tab po qd.compliant. denies missing dosestolerating well. no complains.irving illness since she was last seenlabs reviewed.07/2024 HIV vL nondetceted; CD4 =854; AST/ALT wnl; hPIK=792 HIV VLNondetected; IG8=149; AST 3-; eGFR 61;12/2023 HIV VL nondetcted; YT2=835; HBV VL nondtected; hepatitis C nondetected; no syphillis; eGFR=60;AST/ALT wnl ; F0; no HDV06/2023 EU7=900; HIV VL nondetceted; ALt/AST wnl; eGFR>65; treponema ab negon macrodantin suppression tx for UTI. no UTI since last year.vaccines uptodate.no fever. no weight changesno jaundiceno n/v/ Brittni De Santiago MD [address] [place] [address], [phone], SHABBIR DE SANTIAGO MD [facility] 11/03/2024 16:23:52 5 text/html ROS as noted in the HPI f/u HIVon Triumeq 1 tab po qd.compliant. [...] HIV vL nondetceted; CD4 =854; AST/ALT wnl; aPVB=641/2024 HIV VLNondetected; HN3=680; AST 3-; eGFR 61;12/2023 HIV VL nondetcted; GV9=857; HBV VL nondtected; hepatitis C nondetected; no syphillis; eGFR=60;AST/ALT wnl ; F0; no HDV06/2023 QZ7=860; HIV VL nondetceted; ALt/AST wnl; eGFR>65; treponema ab neg Brittni De Santiago MD [address] [place] [address], [phone], SHABBIR - BRITTNI DE SANTIAGO MD [facility] 01/25/2025 13:47:55 5 text/html ROS as noted in the HPI f/u HIVmale partner/telegraph inspector in room with pt. on Triumeq 1 tab po qd.compliant. denies missing dosesprefers not to switch regimen; she is aware of new regimens and injectables regimens.tolerating well. no complains.labs reviewed with them.on macrodantin suppression tx for UTI. no UTI episodes while on macrodantin.has not been sick since she was last seen; no SOB.nonsmoker dry mouth for years. has been tx by PCP, dentist; feel thick saliva. feels some discomfort on upper lip; worried about a canker sore; will see dentist next week. has tried multiple products taking Valtrex suppression tx daily no cardiac disease. 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 04/2025 HIV VL nondetected; RPR NR; AST/ALT wnl; eGFR 59; HCV VL nondetected; Ad2=977; CBC wnl;07/2024 HIV vL nondetceted; CD4 =854; AST/ALT wnl; aBWS=617/2024 HIV VLNondetected; DL0=671; AST 3-; eGFR 61;12/2023 HIV VL nondetcted; PB6=519; HBV VL nondtected; hepatitis C nondetected; no syphillis; eGFR=60;AST/ALT wnl ; F0; no HDV06/2023 CC7=217; HIV VL nondetceted; ALt/AST wnl; eGFR>65; treponema ab neg Brittni De Santiago MD [address] [place] [address], [id number], SHABBIR DE SANTIAGO MD [facility] 05/12/2025 01:10:59 OBGyn Episode No OBEpisode recorded.
== END 2025-08-23 15:13 | disposition home or self-care (01) ==
LOC: HO.HUSH 14:39
PROVIDERS: PCP Physician Assistant; Visit Provider Urology
DX: N20.0 Calculus of kidney (principal); N31.9 Neuromuscular dysfunction of bladder, unspecified; Z96.0 Presence of urogenital implants
CPT/HCPCS: 51705; 99213; G2211

== ENCOUNTER → 2025-08-23 14:39 | Outpatient (BNVA) | payer MEDICARE, MEDICAID, SELFPAY | PROVIDERS: PCP Physician Assistant; Visit Provider Urology | DX: Z46.6 Encounter for fitting and adjustment of urinary device (principal); N31.9 Neuromuscular dysfunction of bladder, unspecified; N20.0 Calculus of kidney; Z93.59 Other cystostomy status; Z96.0 Presence of urogenital implants | CPT/HCPCS: 51705; 99212 ==

== ENCOUNTER → 2025-09-20 14:39 | Outpatient (BNVA) | payer MEDICARE, MEDICAID, SELFPAY | PROVIDERS: PCP Physician Assistant; Visit Provider Urology | DX: N31.9 Neuromuscular dysfunction of bladder, unspecified (principal) | CPT/HCPCS: 51705 ==